=== PATIENT | female | born 1990 | race Caucasian/White ===

== ENCOUNTER 2017-09-01 16:28 | Inpatient (IN) | payer OTHER ==
[2017-09-01] VITALS (11 sets, daily range): BP systolic 85–127; BP diastolic 48–67; PULSE 110–135; RESP 26–34; TEMP 97.7–99; O2SAT 95–100
[~2017-09-01] VITALS: Ht 157.5 cm; Wt 70.4 kg
[2017-09-01] MEDS ORDERED: SODIUM CHLOR 0.9% 1000 ML INJ 1,000 ML IV SCH ×2 (16:42)
[2017-09-01] MEDS ORDERED: PIPERACIL-TAZO 3.375 GM PREMIX 50 ML IV ONE (16:45)
[2017-09-01] MEDS ORDERED: KETOROLAC TROMETHAMINE 30 MG/ML (IVP) VIAL IV PUSH ONE (16:45)
[2017-09-01] MEDS ORDERED: VANCOMYCIN INJ 1,000 MG in SODIUM CHLOR 0.9% 250 ML INJ 250 ML IV ONE (16:45)
--- NOTE | 2017-09-01 16:56 | PD ---
HPI Chief Complaint: Pain: Acute or Chronic Time Seen by Provider: 16:40 Travel History International Travel<30 days: No Contact w/Intl Traveler<30days: No Traveled to known affect area: No History of Present Illness HPI This is a 27-year-old female history of IV drug abuse, last use Dilaudid 5 days ago, here from [place], presents for evaluation. For the past 3 days she's been having myalgias and substernal sharp chest pain which has been constant. She reports fevers as high as 104-105 at home checked orally. She reports today she has also developed generalized abdominal pain, muscle spasms, hemoptysis. She reports a history of asthma with no other significant past medical history. History is somewhat limited by current patient condition. PFSH Past Medical History ?: Not LMP: 08/17/17 Social History Alcohol Use: Yes Tobacco Use: Yes Allergies-Medications (Allergen,Severity, Reaction): Coded Allergies: neomycin (Verified Allergy, Severe, 09/01/17) Reported Meds & Prescriptions Reported Meds & Active Scripts Active No Active Prescriptions or Reported Medications Review of Systems Except as stated in HPI: all other systems reviewed are Neg Physical Exam Narrative GENERAL: This is a frail appearing 27-year-old female who appears uncomfortable , she is tachycardic, tachypneic on initial examination. SKIN: Warm and dry. On the breasts and arms. HEAD: Atraumatic. Normocephalic. EYES: Pupils equal and round. No scleral icterus. No injection or drainage. ENT: No nasal bleeding or discharge. Mucous membranes pink and moist. NECK: Trachea midline. No JVD. CARDIOVASCULAR: Regular rate and rhythm. No murmur appreciated. RESPIRATORY: No accessory muscle use. Clear to auscultation. Breath sounds equal bilaterally. No crackles no wheezing or rhonchi GASTROINTESTINAL: Abdomen soft, generalized tenderness without guarding. MUSCULOSKELETAL: No obvious deformities. No edema. NEUROLOGICAL: Awake and alert. No obvious cranial nerve deficits. Motor grossly within normal limits. Normal speech. PSYCHIATRIC: Appropriate mood and affect; insight and judgment normal. Data Data Last Documented VS Vital Signs Date Time Temp Pulse Resp B/P (MAP) Pulse Ox O2 Delivery O2 Flow Rate FiO2 09/01/17 18:38 95 Venturi Mask 3.00 09/01/17 18:38 32 09/01/17 18:33 125 108/59 (75) 31 09/01/17 16:41 98.8 Orders Orders Electrocardiogram (09/01/17 16:42) Complete Blood Count With Diff (09/01/17 16:42) Comprehensive Metabolic Panel (09/01/17 16:42) Prothrombin Time / Inr (Pt) (09/01/17 16:42) Act Partial Throm Time (Ptt) (09/01/17 16:42) Lactic Acid Sepsis Protocol (09/01/17 16:42) Lipase (09/01/17 16:42) Ckmb (Isoenzyme) Profile (09/01/17 16:42) Troponin I (09/01/17 16:42) Urinalysis - C+S If Indicated (09/01/17 16:42) Influenzae A/B Antigen (09/01/17 16:42) Blood Culture (09/01/17 16:42) Chest, Single Ap (09/01/17 16:42) Blood Glucose (09/01/17 16:42) Ecg Monitoring (09/01/17 16:42) Iv Access Insert/Monitor (09/01/17 16:42) Oximetry (09/01/17 16:42) Oxygen Administration (09/01/17 16:42) Sodium Chlor 0.9% 1000 Ml Inj (Ns 1000 M (09/01/17 16:42) Ed Urine Pregnancytest Poc (09/01/17 16:42) Sodium Chlor 0.9% 1000 Ml Inj (Ns 1000 M (09/01/17 16:42) Vancomycin Inj (Vancomycin Inj) (09/01/17 16:45) Piperacil-Tazo 3.375 Gm Premix (Zosyn 3. (09/01/17 16:45) Ketorolac Inj (Toradol Inj) (09/01/17 16:45) Vascular Access Team Consult/P PRN (09/01/17 16:46) Vascular Poc Ultrasound (09/01/17 ) CKMB (09/01/17 17:05) CKMB% (09/01/17 17:05) Ct Abd/Pel W/O Iv Contrast (09/01/17 18:15) Morphine Inj (Morphine Inj) (09/01/17 18:30) Admit Order (Ed Use Only) (09/01/17 19:14) Labs Laboratory Tests Test 09/01/17 17:05 White Blood Count 15.7 TH/MM3 Red Blood Count 4.19 MIL/MM3 Hemoglobin 12.3 GM/DL Hematocrit 35.3 % Mean Corpuscular Volume 84.4 FL Mean Corpuscular Hemoglobin 29.4 PG Mean Corpuscular Hemoglobin Concent 34.9 % Red Cell Distribution Width 14.5 % Platelet Count 61 TH/MM3 Mean Platelet Volume 9.8 FL Neutrophils (%) (Auto) 83.5 % Lymphocytes (%) (Auto) 6.2 % Monocytes (%) (Auto) 5.2 % Eosinophils (%) (Auto) 4.7 % Basophils (%) (Auto) 0.4 % Neutrophils # (Auto) 13.1 TH/MM3 Lymphocytes # (Auto) 1.0 TH/MM3 Monocytes # (Auto) 0.8 TH/MM3 Eosinophils # (Auto) 0.7 TH/MM3 Basophils # (Auto) 0.1 TH/MM3 CBC Comment AUTO DIFF Differential Total Cells Counted 100 Neutrophils % (Manual) 70 % Band Neutrophils % 13 % Lymphocytes % 8 % Monocytes % 5 % Neutrophils # (Manual) 13.7 TH/MM3 Metamyelocytes 4 % Differential Comment FINAL DIFF MANUAL Atypical Lymphocytes % Toxic Granulation 2+ Toxic Vacuolation PRESENT Platelet Estimate LOW Platelet Morphology Comment GIANT Red Cell Morphology Comment NORMAL Prothrombin Time 10.8 SEC Prothromb Time International Ratio 1.0 RATIO Activated Partial Thromboplast Time 32.0 SEC Blood Urea Nitrogen 67 MG/DL Creatinine 2.68 MG/DL Random Glucose 109 MG/DL Total Protein 7.7 GM/DL Albumin 2.5 GM/DL Calcium Level 8.6 MG/DL Alkaline Phosphatase 97 U/L Aspartate Amino Transf (AST/SGOT) 96 U/L Alanine Aminotransferase (ALT/SGPT) 42 U/L Total Bilirubin 0.6 MG/DL Sodium Level 126 MEQ/L Potassium Level 3.5 MEQ/L Chloride Level 89 MEQ/L Carbon Dioxide Level 24.3 MEQ/L Anion Gap 13 MEQ/L Estimat Glomerular Filtration Rate 21 ML/MIN Lactic Acid Level 2.6 mmol/L Total Creatine Kinase 156 U/L Creatine Kinase MB 3.3 NG/ML Troponin I LESS THAN 0.02 NG/ML Lipase 139 U/L MDM Medical Decision Making Medical Screen Exam Complete: Yes Emergency Medical Condition: Yes Medical Record Reviewed: Yes Differential Diagnosis Endocarditis, pneumonia, septic emboli, tuberculosis, rhabdomyolysis, bacteremia , cholecystitis, urinary tract infection Narrative Course Patient will be placed on ECG monitoring pulse oximetry. A 12-lead EKG was obtained. The patient was given broad-spectrum antibiotics, 2 L of IV fluids. Plan is for basic lab work, CT pulmonary angiogram, CT abdomen and pelvis. Blood cultures were sent. Chest x-ray is concerning for septic emboli. The CBC count is 15.7, platelet count 61, BUN 67 and creatinine 2.6. GFR 21, no baseline renal function on file as she has never been here before. Lactic acid is 2.6, sodium 126, chloride 89. CT pulmonary injury was canceled as the septic emboli would explain the chest pain and hemoptysis. CT abdomen and pelvis was changed to noncontrast. The patient was admitted to the critical care physician. Sepsis Criteria SIRS Criteria (2 or more): Heart rate over 90, WBC > 50269, < 4000 or > 10% bands Sepsis Criteria (SIRS+source): Infect source susp/known Severe Sepsis (+one): Lactate >2 Diagnosis Primary Impression: Severe sepsis Additional Impressions: Septic embolism IV drug abuse Acute kidney injury Admitting Information Admitting Physician Requests: Admit Scripts No Active Prescriptions or Reported Meds Juwan Lawrence Sep 01, 2017 16:56
--- NOTE | 2017-09-01 17:14 | PD ---
Physical Exam Narrative I, Dr. Cabrera, have reviewed the advance practice practitioner's documentation and am in agreement, met with the patient face to face, made the diagnosis, and the medical decision making was done by me. *My assessment and Findings: Endocarditis vs. septic emboli vs. sepsis secondary to pneumonia vs. colitis 27yo F with IVDA here with generalized pain, sob, chest pain, and muscle cramps. Last IV dilaudid was about 5 days ago. Pt is tachycardic in the 130s and tachypneic. No murmur appreciated. Abdomen is tender diffusely. Blood pressure improved on repeat in the room. Pt seen at end of my shift with MARICHUY Echeverria and will be sign out to next team to follow up work up and admit. Will give IVF NS and empirically cover with vancomycin and zosyn. Data Data Last Documented VS Vital Signs Date Time Temp Pulse Resp B/P (MAP) Pulse Ox O2 Delivery O2 Flow Rate FiO2 09/01/17 18:38 95 Venturi Mask 3.00 09/01/17 18:38 32 09/01/17 18:33 125 108/59 (75) 31 09/01/17 16:41 98.8 Orders Orders Electrocardiogram (09/01/17 16:42) Complete Blood Count With Diff (09/01/17 16:42) Comprehensive Metabolic Panel (09/01/17 16:42) Prothrombin Time / Inr (Pt) (09/01/17 16:42) Act Partial Throm Time (Ptt) (09/01/17 16:42) Lactic Acid Sepsis Protocol (09/01/17 16:42) Lipase (09/01/17 16:42) Ckmb (Isoenzyme) Profile (09/01/17 16:42) Troponin I (09/01/17 16:42) Urinalysis - C+S If Indicated (09/01/17 16:42) Influenzae A/B Antigen (09/01/17 16:42) Blood Culture (09/01/17 16:42) Chest, Single Ap (09/01/17 16:42) Blood Glucose (09/01/17 16:42) Ecg Monitoring (09/01/17 16:42) Iv Access Insert/Monitor (09/01/17 16:42) Oximetry (09/01/17 16:42) Oxygen Administration (09/01/17 16:42) Sodium Chlor 0.9% 1000 Ml Inj (Ns 1000 M (09/01/17 16:42) Ed Urine Pregnancytest Poc (09/01/17 16:42) Sodium Chlor 0.9% 1000 Ml Inj (Ns 1000 M (09/01/17 16:42) Vancomycin Inj (Vancomycin Inj) (09/01/17 16:45) Piperacil-Tazo 3.375 Gm Premix (Zosyn 3. (09/01/17 16:45) Ketorolac Inj (Toradol Inj) (09/01/17 16:45) Vascular Access Team Consult/P PRN (09/01/17 16:46) Vascular Poc Ultrasound (09/01/17 ) CKMB (09/01/17 17:05) CKMB% (09/01/17 17:05) Ct Abd/Pel W/O Iv Contrast (09/01/17 18:15) Morphine Inj (Morphine Inj) (09/01/17 18:30) Admit Order (Ed Use Only) (09/01/17 19:14) Labs Laboratory Tests Test 09/01/17 17:05 White Blood Count 15.7 TH/MM3 Red Blood Count 4.19 MIL/MM3 Hemoglobin 12.3 GM/DL Hematocrit 35.3 % Mean Corpuscular Volume 84.4 FL Mean Corpuscular Hemoglobin 29.4 PG Mean Corpuscular Hemoglobin Concent 34.9 % Red Cell Distribution Width 14.5 % Platelet Count 61 TH/MM3 Mean Platelet Volume 9.8 FL Neutrophils (%) (Auto) 83.5 % Lymphocytes (%) (Auto) 6.2 % Monocytes (%) (Auto) 5.2 % Eosinophils (%) (Auto) 4.7 % Basophils (%) (Auto) 0.4 % Neutrophils # (Auto) 13.1 TH/MM3 Lymphocytes # (Auto) 1.0 TH/MM3 Monocytes # (Auto) 0.8 TH/MM3 Eosinophils # (Auto) 0.7 TH/MM3 Basophils # (Auto) 0.1 TH/MM3 CBC Comment AUTO DIFF Differential Total Cells Counted 100 Neutrophils % (Manual) 70 % Band Neutrophils % 13 % Lymphocytes % 8 % Monocytes % 5 % Neutrophils # (Manual) 13.7 TH/MM3 Metamyelocytes 4 % Differential Comment FINAL DIFF MANUAL Atypical Lymphocytes % Toxic Granulation 2+ Toxic Vacuolation PRESENT Platelet Estimate LOW Platelet Morphology Comment GIANT Red Cell Morphology Comment NORMAL Prothrombin Time 10.8 SEC Prothromb Time International Ratio 1.0 RATIO Activated Partial Thromboplast Time 32.0 SEC Blood Urea Nitrogen 67 MG/DL Creatinine 2.68 MG/DL Random Glucose 109 MG/DL Total Protein 7.7 GM/DL Albumin 2.5 GM/DL Calcium Level 8.6 MG/DL Alkaline Phosphatase 97 U/L Aspartate Amino Transf (AST/SGOT) 96 U/L Alanine Aminotransferase (ALT/SGPT) 42 U/L Total Bilirubin 0.6 MG/DL Sodium Level 126 MEQ/L Potassium Level 3.5 MEQ/L Chloride Level 89 MEQ/L Carbon Dioxide Level 24.3 MEQ/L Anion Gap 13 MEQ/L Estimat Glomerular Filtration Rate 21 ML/MIN Lactic Acid Level 2.6 mmol/L Total Creatine Kinase 156 U/L Creatine Kinase MB 3.3 NG/ML Troponin I LESS THAN 0.02 NG/ML Lipase 139 U/L MDM Supervised Visit with SHEREE: Yes Interpretation(s) EKG: Sinus tachycardia at 132bpm. Normal axis. Diagnosis Primary Impression: Severe sepsis Admitting Information Admitting Physician Requests: Admit Scripts No Active Prescriptions or Reported Meds Naomi Cabrera DO Sep 01, 2017 17:14
[2017-09-01 17:31] LABS: AUTOMATED NEUTROPHIL # 13.1 TH/MM3 (1.8-7.7); BASOPHIL # 0.1 TH/MM3 (0-0.2); BASOPHIL % 0.4 % (0.0-2.0); EOSINOPHIL # 0.7 TH/MM3 (0-0.4); EOSINOPHIL % 4.7 % (0.0-4.0); HEMATOCRIT 35.3 % (35.0-46.0); LYMPH % 6.2 % (9.0-44.0); MEAN CELL VOLUME 84.4 FL (80.0-100.0); MEAN CORPUSCULAR HEMOGLOBIN 29.4 PG (27.0-34.0); MEAN CORPUSCULAR HGB CONC 34.9 % (32.0-36.0); MONO % 5.2 % (0.0-8.0); NEUT % 83.5 % (16.0-70.0); PLATELET COUNT 61 TH/MM3 (150-450); RED BLOOD COUNT 4.19 MIL/MM3 (4.00-5.30); RED CELL DISTRIBUTION WIDTH 14.5 % (11.6-17.2); WHITE BLOOD COUNT 15.7 TH/MM3 (4.0-11.0)
[2017-09-01 17:53] LABS: ANION GAP 13 MEQ/L (5-15); AST (GOT) 96 U/L (15-37); BICARBONATE 24.3 MEQ/L (21.0-32.0); BLOOD UREA NITROGEN 67 MG/DL (7-18); CHLORIDE 89 MEQ/L (98-107); GLOMERULAR FILTRATION RATE 21 ML/MIN (>89); POTASSIUM 3.5 MEQ/L (3.5-5.1); SODIUM (NA) 126 MEQ/L (136-145)
[2017-09-01 17:55] LABS: HEMO FLAGS AUTO DIFF
[2017-09-01 17:57] LABS: ALKALINE PHOSPHATASE 97 U/L (45-117); ALT (GPT) 42 U/L (10-53); CREATINE KINASE 156 U/L (26-192); TOTAL BILIRUBIN ADULT 0.6 MG/DL (0.2-1.0)
--- NOTE | 2017-09-01 18:02 | RADRPT ---
EXAM DATE/TIME: 09/01/2017 17:20 [facility] COMPARISON: No previous studies available for comparison. INDICATIONS : Chest pain. MEDICAL HISTORY : None. SURGICAL HISTORY : None. ENCOUNTER: Initial ACUITY: 1 day PAIN SCORE: 0/10 LOCATION: Bilateral chest FINDINGS: Abnormal examination. There are multiple bilateral lung masses. These appear more confluent in the le ft lung base. Cardiomediastinal contours are within normal limits. Osseous structures are intact. CONCLUSION: 1. Abnormal examination demonstrating multiple bilateral apparent lung masses. Findings are concernin g for septic emboli in this young patient although differential considerations include metastatic dis ease. There is a CT examination of the chest pending. Bereket Pozo MD on September 01, 2017 at 17:59 Board Certified Radiologist. This report was verified electronically.
[2017-09-01 18:10] LABS: CKMB 3.3 NG/ML (0.5-3.6)
[2017-09-01 18:14] LABS: PROTHROMBIN TIME - PATIENT 10.8 SEC (9.8-11.6)
[2017-09-01] MEDS ORDERED: MORPHINE SULFATE 4 MG/ML INJ IV PUSH ONE (18:30)
[2017-09-01 18:37] LABS: BANDS 13 % (0-6); METAMYELOCYTES 4 % (0-1); NEUTROPHIL # MANUAL DIFF 13.7 TH/MM3 (1.8-7.7); POLYS (SEG NEUTROPHILS) 70 % (16-70); WBC DIFF SAMPLE 100
[2017-09-01 18:38] LABS: PLATELET ESTIMATE SMEAR LOW (NORMAL); PLATELET MORPHOLOGY GIANT (NORMAL); SCAN/DIFF FINAL DIFF MANUAL; TOXIC GRANULATION 2+ (NORMAL); TOXIC VACUOLATION PRESENT (NONE SEEN)
[2017-09-01 19:22] LABS: LACTIC ACID GHOST NOT REPORTABLE
[2017-09-01] MEDS ORDERED: SODIUM CHLORIDE 0.9% FLUSH 10 ML FLUSH IV FLUSH PRN (19:30)
[2017-09-01] MEDS ORDERED: SENNOSIDES 8.6 MG TAB PO PRN (19:30)
[2017-09-01] MEDS ORDERED: ZOLPIDEM TARTRATE 5 MG TAB PO PRN (19:30)
[2017-09-01] MEDS ORDERED: ONDANSETRON HCL 4 MG/2 ML VIAL IV PUSH PRN (19:30)
[2017-09-01] MEDS ORDERED: ACETAMINOPHEN 325 MG TAB PO PRN (19:30)
[2017-09-01] MEDS ORDERED: MISCELLANEOUS NURSING INFORMATION XX SCH (19:30)
[2017-09-01] MEDS ORDERED: CHLORHEXIDINE GLUCONATE 2 % 1 PACK (2 CLOTHS) TOP PRN (19:30)
[2017-09-01] MEDS ORDERED: MAGNESIUM HYDROXIDE SUSP 30 ML CUP PO PRN (19:30)
[2017-09-01] MEDS ORDERED: ACETAMINOPHEN/HYDROcodone 325 MG/5 MG TAB PO PRN (19:30)
[2017-09-01] MEDS ORDERED: LACTULOSE SYRUP 20 GM/30 ML CUP PO PRN (19:30)
[2017-09-01] MEDS ORDERED: BISACODYL 10 MG SUPP RECTAL PRN (19:30)
[2017-09-01] MEDS ORDERED: Vancomycin Consult Pharmacy 1 EA OTHER SCH (19:45)
[2017-09-01] MEDS ORDERED: PIPERACIL-TAZO 4.5 GM PREMIX 100 ML IV SCH (19:45)
[2017-09-01] MEDS ORDERED: VANCOMYCIN INJ 1,000 MG in SODIUM CHLOR 0.9% 250 ML INJ 250 ML IV SCH (19:45)
--- NOTE | 2017-09-01 20:07 | RADRPT ---
EXAM DATE/TIME: 09/01/2017 19:37 [facility] COMPARISON: CHEST SINGLE AP, September 01, 2017, 17:20. INDICATIONS : General weakness, fever, coughing up blood past few days. ORAL CONTRAST: No oral contrast ingested. RADIATION DOSE: 5.34 CTDIvol (mGy) MEDICAL HISTORY : None SURGICAL HISTORY : None. ENCOUNTER: Initial ACUITY: 3 days PAIN SCALE: 10/10 LOCATION: Bilateral abdomen TECHNIQUE: Volumetric scanning of the abdomen and pelvis was performed. Using automated exposure control and ad justment of the mA and/or kV according to patient size, radiation dose was kept as low as reasonably achievable to obtain optimal diagnostic quality images. DICOM format image data is available electro nically for review and comparison. FINDINGS: There are multiple patchy areas of prominent consolidation seen in the lower lungs bilaterally. Some of these have a rounded appearance. There is a minimal left pleural effusion. The liver appears normal for noncontrast CT examination. The spleen appears somewhat prominent m easuring 12.7 cm in length. A focal splenic lesion is not seen on this noncontrast CT examination. Th e pancreas and adrenal glands appear normal. There is mild to moderate dilatation of the collecting s ystems bilaterally the kidneys. Renal stones are not seen. The bowel is unremarkable for a noncontra st CT examination. There is metallic density seen adjacent to the cecum on prior appendectomy. There is a 5.9 cm cyst seen at the posterior right adnexa region likely related to a right ovari an cyst. The pelvic structures are otherwise unremarkable. CONCLUSION: 1. Multiple prominent areas of consolidation at the lung bases. Several of these have a rounded confi guration raising possibility of septic emboli. Diffuse infection could have a similar appearance. 2. Mild proximal spleen. 3. 5.9 center cystic area in the right adnexa likely related to right ovarian cyst. 4. Mild to moderate dilatation of the collecting systems bilaterally. The ureters do not appear diste nded. Lorenzo Perez MD on September 01, 2017 at 19:58 Board Certified Radiologist. This report was verified electronically.
[2017-09-01] MEDS: SODIUM CHLORIDE 0.9% FLUSH 10 ML FLUSH IV FLUSH SCH (20:16)
[2017-09-01] MEDS: SODIUM CHLOR 0.9% 1000 ML INJ 1,000 ML IV SCH (20:16)
[2017-09-01] MEDS: FAMOTIDINE 20 MG/2 ML VIAL IV PUSH SCH (20:17)
[2017-09-01 20:48] LABS: BACTERIA, URINE OCC /hpf; BLOOD, URINE LARGE (NEG); GLUCOSE,URINE NEG (NEG); KETONE, URINE NEG (NEG); NITRITE,URINE NEG (NEG); PH, URINE 5.5 (5.0-8.5); SQUAMOUS EPITHELIAL CELL URINE 1 /hpf (0-5); URINE COLOR YELLOW (YELLW/STRAW)
[2017-09-01 20:49] LABS: COMMENT (UR) CATH-CULTURE IND; CULTURE IF INDICATED CATH CULTURE IND
[2017-09-01] MEDS: DOCUSATE SODIUM 50 MG/SENNA 8.6 MG TAB PO SCH (21:00)
[2017-09-01] MEDS: RESP: ALBUTEROL 2.5 MG/IPRATROPIUM 0.5 MG NEB (SCH) INH (21:14)
[2017-09-01] MEDS: MORPHINE SULFATE 4 MG/ML INJ IV PUSH PRN ×2 (21:45→23:51)
--- NOTE | 2017-09-01 22:58 | HHI.HP ---
HPI Service Critical Care Medicine Primary Care Physician No Primary Care Physician Admission Diagnosis septic emboli, severe sepsis, IVDU Diagnosis: Travel History International Travel<30 Days: No Contact w/Intl Traveler <30 Da: No Traveled to Known Affected Are: No History of Present Illness 27-year-old very pleasant female with history of IV drug abuse, last use Dilaudid 5 days ago, visiting here from [place], presents for evaluation of having myalgias and substernal sharp chest pain which has been constant. She reports fevers as high as 104-105 at home checked orally. She reports today she has also developed generalized abdominal pain, muscle spasms, hemoptysis. She reports a history of asthma with no other significant past medical history. Review of Systems Constitutional: COMPLAINS OF: Diaphoretic episodes, Fatigue, Fever, Chills, Dizziness, Change in appetite, Night Sweats, DENIES: Weight gain, Weight loss Endocrine: DENIES: Abnorml menstrual pattern, Heat/cold intolerance, Polydipsia , Polyuria, Polyphagia Eyes: DENIES: Blurred vision, Diplopia, Eye inflammation, Eye pain, Vision loss , Photosensitivity, Double Vision Ears, nose, mouth, throat: DENIES: Tinnitus, Hearing loss, Vertigo, Nasal discharge, Oral lesions, Throat pain, Hoarseness, Ear Pain, Running Nose, Epistaxis, Sinus Pain, Toothache, Odynophagia Respiratory: COMPLAINS OF: Cough, Hemoptysis, Sputum production, Shortness of breath, DENIES: Apneas, Snoring, Wheezing Cardiovascular: COMPLAINS OF: Chest pain, DENIES: Palpitations, Syncope, Dyspnea on Exertion, PND, Lower Extremity Edema, Orthopnea, Claudication Gastrointestinal: COMPLAINS OF: Abdominal pain, DENIES: Black stools, Bloody stools, Constipation, Diarrhea, Nausea, Vomiting, Difficulty Swallowing, Anorexia Genitourinary: DENIES: Abnormal vaginal bleeding, Dysmenorrhea, Dyspareunia, Sexual dysfunction, Urinary frequency, Urinary incontinence, Urgency, Hematuria , Dysuria, Nocturia, Vaginal discharge Musculoskeletal: COMPLAINS OF: Joint pain, Muscle aches, DENIES: Stiffness, Joint Swelling, Back pain, Neck pain Integumentary: DENIES: Abnormal pigmentation, Pruritus, Rash, Nail changes, Breast masses, Breast skin changes, Nipple discharge Hematologic/lymphatic: DENIES: Bruising, Lymphadenopathy Immunologic/allergic: DENIES: Eczema, Urticaria Neurologic: DENIES: Abnormal gait, Headache, Localized weakness, Paresthesias, Seizures, Speech Problems, Tremor, Poor Balance Psychiatric: DENIES: Anxiety, Confusion, Mood changes, Depression, Hallucinations, Agitation, Suicidal Ideation, Homicidal Ideation, Delusions Past Family Social History Allergies: Coded Allergies: neomycin (Verified Allergy, Severe, 09/01/17) Past Medical History Asthma IVDU Past Surgical History None Reported Medications Reported Meds & Active Scripts Active No Active Prescriptions or Reported Medications Active Ordered Medications Current Medications Medications (Trade) Dose Ordered Sig/Marie Route PRN Reason Start Time Stop Time Status Last Admin Dose Admin Sodium Chloride 1,000 ml @ 154 mls/hr Q6H30M IV 09/01/17 19:24 09/01/17 20:16 Sodium Chloride (NS Flush) 2 ml UNSCH PRN IV FLUSH FLUSH AFTER USING IV ACCESS 09/01/17 19:30 Sodium Chloride (NS Flush) 2 ml BID IV FLUSH 09/01/17 21:00 09/01/17 20:16 Acetaminophen (Tylenol) 650 mg Q6H PRN PO FEVER >101F 09/01/17 19:30 Acetaminophen/ Hydrocodone Bitart ([place] 5-325 Mg) 1 tab Q4H PRN PO PAIN SCALE 1 TO 5 09/01/17 19:30 Morphine Sulfate (Morphine Inj) 2 mg Q2H PRN IV PUSH PAIN SCALE 6 TO 10 09/01/17 19:30 Famotidine (Pepcid Inj) 20 mg Q12HR IV PUSH 09/01/17 21:00 09/01/17 20:17 Ondansetron HCl (Zofran Inj) 4 mg Q6H PRN IV PUSH NAUSEA OR VOMITING 09/01/17 19:30 Zolpidem Tartrate (Ambien) 5 mg HS PRN PO INSOMNIA 09/01/17 19:30 Albuterol/ Ipratropium (Duoneb Neb) 1 ampule Q6HR NEB INH 09/01/17 22:00 09/01/17 21:14 Albuterol/ Ipratropium (Duoneb Neb) 1 ampule Q2HR NEB PRN INH WHEEZING 09/01/17 19:30 Miscellaneous Information 1 Q361D XX 09/01/17 19:30 Chlorhexidine Gluconate (Chlorhexidine 2% Cloth) 3 pack Taper DAILY@04 TOP 09/02/17 04:00 08/29/18 03:59 Chlorhexidine Gluconate (Chlorhexidine 2% Cloth) 3 pack UNSCH PRN TOP HYGIENIC CARE 09/01/17 19:30 Senna/Docusate Sodium (Ann-Marie-Colace) 1 tab BID PO 09/01/17 21:00 Magnesium Hydroxide (Milk Of Magnesia Liq) 30 ml Q12H PRN PO MILD - MODERATE CONSTIPATION 09/01/17 19:30 Sennosides (Senokot) 17.2 mg Q12H PRN PO MODERATE - SEVERE CONSTIPATION 09/01/17 19:30 Bisacodyl (Dulcolax Supp) 10 mg DAILY PRN RECTAL SEVERE CONSITIPATION 09/01/17 19:30 Lactulose (Lactulose Liq) 30 ml DAILY PRN PO SEVERE CONSITIPATION 09/01/17 19:30 Pharmacy Profile Note 0 ml @ 0 mls/hr UNSCH OTHER 09/01/17 19:45 Piperacillin Sod/ Tazobactam Sod 50 ml @ 100 mls/hr Q6H IV 09/02/17 00:00 Vancomycin HCl 750 mg/Sodium Chloride 257.5 ml @ 250 mls/hr Q36H IV 09/03/17 06:00 Family History No family history significant for coronary artery disease Social History Positive for tobacco and IVDU, alcohol socially Physical Exam Vital Signs Vital Signs Date Time Temp Pulse Resp B/P (MAP) Pulse Ox O2 Delivery O2 Flow Rate FiO2 09/01/17 21:15 09/01/17 21:07 95 09/01/17 20:05 111 32 85/48 (60) 100 Venturi Mask 3.00 09/01/17 19:57 97.7 112 30 91/54 (66) Venturi Mask 3.00 09/01/17 18:38 95 Venturi Mask 3.00 09/01/17 18:38 32 09/01/17 18:33 125 28 108/59 (75) 96 Venturi Mask 3.00 31 09/01/17 18:32 Venturi Mask 6.00 50 09/01/17 18:00 114 34 108/58 (75) 96 Nasal Cannula 2.00 09/01/17 17:37 122 32 100/64 (76) 100 Nasal Cannula 2.00 09/01/17 17:05 Nasal Cannula 2.00 09/01/17 17:05 99 Room Air 09/01/17 16:41 98.8 133 28 127/67 (87) 96 09/01/17 16:30 99.0 135 26 89/58 (68) 95 Room Air Physical Exam GENERAL: Well-nourished, well-developed patient young female on facemask nonrebreather. SKIN: Warm and dry. HEAD: Normocephalic. EYES: No scleral icterus. No injection or drainage. NECK: Supple, trachea midline. No JVD or lymphadenopathy. CARDIOVASCULAR: Regular rate and rhythm without murmurs, gallops, or rubs. RESPIRATORY: Breath sounds equal bilaterally. No accessory muscle use. GASTROINTESTINAL: Abdomen soft, non-tender, nondistended. MUSCULOSKELETAL: No cyanosis, or edema. BACK: Nontender without obvious deformity. NEURO EXAM: GCS: M 6 V 5 E 4 Mental Status: The patient is alert and oriented to person, place, and time with normal speech. Cranial Nerves: Visual mishra normal in all quadrants. Pupils are round, reactive to light. Extraocular movements are intact without ptosis. Hearing is normal bilaterally. Voice is normal. Tongue protrudes midline and moves symmetrically. Reflexes: Biceps, patellar, and Achilles are 2/4 bilaterally. No clonus. Laboratory Laboratory Tests Test 09/01/17 17:05 09/01/17 20:00 09/01/17 20:30 White Blood Count 15.7 Red Blood Count 4.19 Hemoglobin 12.3 Hematocrit 35.3 Mean Corpuscular Volume 84.4 Mean Corpuscular Hemoglobin 29.4 Mean Corpuscular Hemoglobin Concent 34.9 Red Cell Distribution Width 14.5 Platelet Count 61 Mean Platelet Volume 9.8 Neutrophils (%) (Auto) 83.5 Lymphocytes (%) (Auto) 6.2 Monocytes (%) (Auto) 5.2 Eosinophils (%) (Auto) 4.7 Basophils (%) (Auto) 0.4 Neutrophils # (Auto) 13.1 Lymphocytes # (Auto) 1.0 Monocytes # (Auto) 0.8 Eosinophils # (Auto) 0.7 Basophils # (Auto) 0.1 CBC Comment AUTO DIFF Differential Total Cells Counted 100 Neutrophils % (Manual) 70 Band Neutrophils % 13 Lymphocytes % 8 Monocytes % 5 Neutrophils # (Manual) 13.7 Metamyelocytes 4 Differential Comment FINAL DIFF MANUAL Atypical Lymphocytes Toxic Granulation 2+ Toxic Vacuolation PRESENT Platelet Estimate LOW Platelet Morphology Comment GIANT Red Cell Morphology Comment NORMAL Prothrombin Time 10.8 Prothromb Time International Ratio 1.0 Activated Partial Thromboplast Time 32.0 Blood Urea Nitrogen 67 Creatinine 2.68 Random Glucose 109 Total Protein 7.7 Albumin 2.5 Calcium Level 8.6 Alkaline Phosphatase 97 Aspartate Amino Transf (AST/SGOT) 96 Alanine Aminotransferase (ALT/SGPT) 42 Total Bilirubin 0.6 Sodium Level 126 Potassium Level 3.5 Chloride Level 89 Carbon Dioxide Level 24.3 Anion Gap 13 Estimat Glomerular Filtration Rate 21 Lactic Acid Level 2.6 1.4 Total Creatine Kinase 156 Creatine Kinase MB 3.3 Troponin I LESS THAN 0.02 Lipase 139 Urine Color YELLOW Urine Turbidity HAZY Urine pH 5.5 Urine Specific [place] 1.011 Urine Protein 30 Urine Glucose (UA) NEG Urine Ketones NEG Urine Occult Blood LARGE Urine Nitrite NEG Urine Bilirubin NEG Urine Urobilinogen LESS THAN 2.0 Urine Leukocyte Esterase NEG Urine RBC 2 Urine WBC 7 Urine Squamous Epithelial Cells 1 Urine Amorphous Sediment OCC Urine Bacteria OCC Microscopic Urinalysis Comment CATH-CULTURE IND Date/Time Source Procedure Growth Status 09/01/17 17:10 Blood Peripheral Aerobic Blood Culture Pending Received 09/01/17 17:10 Blood Peripheral Anaerobic Blood Culture Pending Received 09/01/17 17:50 Nasal Aspirate Influenza Types A,B Antigen (TOM) - Final NEGATIVE FOR FLU A AND B ANTIGEN.... Complete 09/01/17 20:30 Urine Catheterized Urine Urine Culture Pending Received Result Diagram: 09/01/17 1705 09/01/171704 Caprini VTE Risk Assessment Caprini VTE Risk Assessment: No/Low Risk (score <= 1) Caprini Risk Assessment Model Point Value = 1 Point Value = 2 Point Value = 3 Point Value = 5 Age 41-60 Minor surgery BMI > 25 kg/m2 Swollen legs Varicose veins or History of unexplained or recurrent spontaneous Oral contraceptives or hormone replacement Sepsis (< 1 month) Serious lung disease, including pneumonia (< 1 month) Abnormal pulmonary function Acute myocardial infarction Congestive heart failure (< 1 month) History of inflammatory bowel disease Medical patient at bed rest Age 61-74 Arthroscopic surgery Major open surgery (> 45 min) Laparoscopic surgery (> 45 min) Malignancy Confined to bed (> 72 hours) Immobilizing plaster cast Central venous access Age >= 75 History of VTE Family history of VTE Factor V Leiden Prothrombin [id number] Lupus anticoagulant Anticardiolipin antibodies Elevated serum homocysteine Heparin-induced thrombocytopenia Other congenital or acquired thrombophilia Stroke (< 1 month) Elective arthroplasty Hip, pelvis, or leg fracture Acute spinal cord injury (< 1 month) Prophylaxis Regimen Total Risk Factor Score Risk Level Prophylaxis Regimen 0-1 Low Early ambulation 2 Moderate Order ONE of the following: *Sequential Compression Device (SCD) *Heparin 5000 units SQ BID 3-4 Higher Order ONE of the following medications: *Heparin 5000 units SQ TID *Enoxaparin/Lovenox 40 mg SQ daily (WT < 150 kg, CrCl > 30 mL/min) *Enoxaparin/Lovenox 30 mg SQ daily (WT < 150 kg, CrCl > 10-29 mL/min) *Enoxaparin/Lovenox 30 mg SQ BID (WT < 150 kg, CrCl > 30 mL/min) AND/OR *Sequential Compression Device (SCD) 5 or more Highest Order ONE of the following medications: *Heparin 5000 units SQ TID (Preferred with Epidurals) *Enoxaparin/Lovenox 40 mg SQ daily (WT < 150 kg, CrCl > 30 mL/min) *Enoxaparin/Lovenox 30 mg SQ daily (WT < 150 kg, CrCl > 10-29 mL/min) *Enoxaparin/Lovenox 30 mg SQ BID (WT < 150 kg, CrCl > 30 mL/min) AND *Sequential Compression Device (SCD) Assessment and Plan Assessment and Plan Hemoptysis - Pulmonary septic emboli - Blood cultures - Broad-spectrum antibiotics - Infectious disease consult - De-escalate per sensitivity Myalgias and fevers - Broad-spectrum antibiotics - 2-D echo to rule out endocarditis at the patient with a history of IVDU - Tylenol when necessary for fevers Acute kidney injury - Dehydration - IV fluid resuscitation - Strict I's and O's - Monitor creatinine and electrolytes IVDU - Monitor for withdrawal - Morphine [place] and Ativan when necessary DVT GI prophylaxis - Teds SCDs - Hold pharmacological DVT prophylaxis due to hemoptysis - Pepcid Critical Care: The total critical care time was 35 minutes. Time to perform other separately billable procedures was not included in the critical care time. Dominic Anna MD Sep 01, 2017 22:58
[2017-09-01] MEDS: PIPERACIL-TAZO 3.375 GM PREMIX 50 ML IV SCH (23:51)
[2017-09-02] VITALS (20 sets, daily range): BP systolic 84–120; BP diastolic 48–70; PULSE 79–133; RESP 24–42; TEMP 96–99; O2SAT 92–100
[2017-09-02] MEDS ORDERED: PIPERACIL-TAZO 2.25 GM PREMIX 50 ML IV SCH
[2017-09-02] MEDS: LORazepam 2 MG/ML VIAL IV PUSH PRN ×2 (00:43→06:43)
[2017-09-02] MEDS: RESP: ALBUTEROL 2.5 MG/IPRATROPIUM 0.5 MG NEB (PRN) INH (00:44)
[2017-09-02] MEDS ORDERED: HYDROmorphone HCL PF 1 MG/ML VIAL IV ONE (01:45)
[2017-09-02] MEDS ORDERED: DEXMEDETOMIDINE INJ 200 MCG in SODIUM CHLORIDE 0.9% INJ 50 ML IV PRN (01:45)
[2017-09-02] MEDS: SODIUM CHLOR 0.9% 1000 ML INJ 1,000 ML IV SCH ×5 (02:11→12:54)
[2017-09-02] MEDS: RESP: ALBUTEROL 2.5 MG/IPRATROPIUM 0.5 MG NEB (SCH) INH ×4 (03:44→20:25)
[2017-09-02] MEDS: CHLORHEXIDINE GLUCONATE 2 % 1 PACK (2 CLOTHS) TOP SCH (04:00)
[2017-09-02] MEDS ORDERED: TERBUTALINE INJ 1 MG/ML AMP SQ PRN ×2 (05:30→12:15)
[2017-09-02] MEDS: PIPERACIL-TAZO 3.375 GM PREMIX 50 ML IV SCH ×4 (05:32→22:32)
[2017-09-02] MEDS: PHENYLEPHRINE 40 MG in D5W 500 ML IV PRN ×3 (06:12→15:41)
[2017-09-02] MEDS ORDERED: fentaNYL CITRATE 250 MCG/5 ML AMP IV PUSH ONE (07:45)
[2017-09-02] MEDS ORDERED: PROPOFOL 200 MG/20 ML AMP IV ONE (07:45)
[2017-09-02] MEDS ORDERED: SUCCINYLCHOLINE CHLORIDE 100 MG/5 ML SYRINGE IV PUSH ONE (07:45)
[2017-09-02] MEDS ORDERED: ROCURONIUM INJ 50 MG/5 ML VIAL IV ONE (07:45)
[2017-09-02] MEDS ORDERED: PROPOFOL 500 MG/50 ML INJ 50 ML ONE (07:57)
[2017-09-02] MEDS: MIDAZOLAM 100 MG/100 ML INJ 100 ML IV PRN ×2 (08:29→22:33)
[2017-09-02] MEDS: fentaNYL DRIP 250 ML IV PRN (08:29)
[2017-09-02 08:30] LABS: BLOOD GAS BASE EXCESS -10.5 mmol/L (-2-2); BLOOD GAS CARBOXYHEMOGLOBIN 0.6 % (0-4); BLOOD GAS HCO3 16 mmol/L (22-26); BLOOD GAS METHEMOGLOBIN 0.5 % (0-2); BLOOD GAS O2 HGB SATURATION 98 % (90-100); BLOOD GAS OXYGEN CONTENT 13.7 Vol % (12.0-20.0); BLOOD GAS PCO2 46 mmHg (38-42); BLOOD GAS PO2 228 mmHG (61-120); BLOOD GAS TOTAL HGB 9.5 G/DL (12.0-16.0); TEMP CORR TO 98.6
[2017-09-02 08:32] LABS: CRITICAL VALUE YES; DRAW SITE ART LINE; FIO2 100 %
[2017-09-02 08:33] LABS: STAT YES
[2017-09-02] MEDS: DOCUSATE SODIUM 50 MG/SENNA 8.6 MG TAB PO SCH ×2 (08:39→21:00)
[2017-09-02] MEDS: SODIUM CHLORIDE 0.9% FLUSH 10 ML FLUSH IV FLUSH SCH ×2 (09:00→21:04)
--- NOTE | 2017-09-02 09:07 | HHI.CCPN ---
Subjective Remarks/Hospital Course 27-year-old very pleasant female with history of IV drug abuse, last use Dilaudid 5 days ago, visiting here from [place], presents for evaluation of having myalgias and substernal sharp chest pain which has been constant. She reports fevers as high as 104-105 at home checked orally. She reports today she has also developed generalized abdominal pain, muscle spasms, hemoptysis. She reports a history of asthma with no other significant past medical history. Subjective: 09/02: The patient was noted to be tachypnea , respiratory rate 40s and shallow , as well as tachycardic and hypotensive phenylephrine infusing at 50 mcgs.the patient was emergently intubated 1 attempt ABGs revealed metabolic and respiratory acidosis with a pH of 7.18 .Possible septic emboli noted on chest x -ray. Multiple bilateral lung masses. Stat CT thorax pending, no angiogram 2/ 2 elevated creatinine. Sodium bicarbonate infusion initiated. Objective Vital Signs Date Time Temp Pulse Resp B/P (MAP) Pulse Ox O2 Delivery O2 Flow Rate FiO2 09/02/17 08:12 100 100 09/02/17 06:12 129 84/42 09/02/17 04:00 98.9 38 09/01/17 20:05 Venturi Mask 3.00 Intake and Output 09/02/17 09/02/17 09/03/17 08:00 16:00 00:00 Intake Total 2953 ml Output Total 350 ml Balance 2603 ml Result Diagram: 09/01/17 1705 09/01/17 1705 Other Results Microbiology Date/Time Source Procedure Growth Status 09/01/17 17:50 Nasal Aspirate Influenza Types A,B Antigen (TOM) - Final NEGATIVE FOR FLU A AND B ANTIGEN.... Complete Laboratory Tests Test 09/02/17 08:19 Blood Gas Puncture Site ART LINE Blood Gas Patient Temperature 98.6 Blood Gas HCO3 16 mmol/L (22-26) Blood Gas Base Excess -10.5 mmol/L (-2-2) Blood Gas Oxygen Saturation 98 % (90-100) Arterial Blood pH 7.18 (7.380-7.420) Arterial Blood Partial Pressure CO2 46 mmHg (38-42) Arterial Blood Partial Pressure O2 228 mmHG (61-120) Arterial Blood Oxygen Content 13.7 Vol % (12.0-20.0) Arterial Blood Carboxyhemoglobin 0.6 % (0-4) Arterial Blood Methemoglobin 0.5 % (0-2) Blood Gas Hemoglobin 9.5 G/DL (12.0-16.0) Blood Gas Ventilator Setting Blood Gas Inspired Oxygen 100 % Imaging Last Impressions Abdomen/Pelvis CT 09/01/17 181 Signed Impressions: Service Date/Time: Friday, September 01, 2017 19:37 - CONCLUSION: 1. Multiple prominent areas of consolidation at the lung bases. Several of these have a rounded configuration raising possibility of septic emboli. Diffuse infection could have a similar appearance. 2. Mild proximal spleen. 3. 5.9 center cystic area in the right adnexa likely related to right ovarian cyst. 4. Mild to moderate dilatation of the collecting systems bilaterally. The ureters do not appear distended. Lorenzo Perez MD Chest X-Ray 09/01/17 1642 Signed Impressions: Service Date/Time: Friday, September 01, 2017 17:20 - CONCLUSION: 1. Abnormal examination demonstrating multiple bilateral apparent lung masses. Findings are concerning for septic emboli in this young patient although differential considerations include metastatic disease. There is a CT examination of the chest pending. Bereket Pozo MD Objective Remarks GENERAL: Well-nourished, well-developed patient young female on facemask in distress, tachypnea and dyspnea. Patient confused mumbling. SKIN: Warm and dry. Multiple punctate lesions from skin popping noted over trunk and extremities 4. HEAD: Normocephalic. EYES: No scleral icterus. No injection or drainage. NECK: Supple, trachea midline. No JVD or lymphadenopathy. CARDIOVASCULAR: Regular rate and rhythm without murmurs, gallops, or rubs. RESPIRATORY: Breath sounds equal bilaterally.Accessory muscle use. Tachypnea respiratory rate 48 GASTROINTESTINAL: Abdomen soft, non-tender, nondistended. Normoactive bowel sounds MUSCULOSKELETAL: No cyanosis, or edema. BACK: Nontender without obvious deformity. NEURO EXAM: GCS: M 6 V 4 E 4 Mental Status: The patient is lethargic, waxing and waning in consciousness, incomprehensible. Moving extremities 4 but not following commands. Cranial Nerves: Visual mishra normal in all quadrants. Pupils are round, reactive to light. Extraocular movements are intact without ptosis. Hearing is normal bilaterally. Voice is normal. Tongue protrudes midline and moves symmetrically. Reflexes: Biceps, patellar, and Achilles are 2/4 bilaterally. No clonus. Procedures 09/02-CT angiogram pulmonary 09/02- transthoracic echocardiogram Urinary Catheter: Yes Date of Insertion: Sep 02, 2017 Vascular Central Line Catheter: Yes Assessment to: Continue Line: Central Venous Catheter Side: Right Location: Subclavian Reason for Continuation Vasoactive medication A/P Assessment and Plan Metabolic Encephalopathy 2/2 sepsis Toxic Encephalopathy- Cocaine, Amphetamines Neuro checks per ICU Protocol F/U MRI brain 01/01 septic emboli Obtain Echo -r/o PFO, vegetations and evaluate function Hemoptysis Acute hypercapnic and hypoxemic respiratory failure - Pulmonary septic emboli - Blood cultures - Broad-spectrum antibiotics - Infectious disease consulted - De-escalate per sensitivity -09/02 intubated 7.5 at 22cm @lip -Obtain sputum culture -Obtain CT chest-unable to do angiogram secondary to elevated creatinine -Versed and fentanyl infusions for ventilator synchrony -Daily sedation vacation Myalgias and fevers Septic shock Metabolic acidosis - Broad-spectrum antibiotics -Obtain stat 2-D echo to rule out endocarditis at the patient with a history of IVDU - Tylenol when necessary for fevers -Follow-up blood , urine and sputum cultures- blood gram-positive bacteremia. Vancomycin, Zosyn initiated -Patient currently on norepinephrine, vasopressin, phenylephrine with maintenance of MAP greater than 65mmHg -Sodium bicarbonate infusion initiated 75cc/hr. PH 7.18, BE -10.5,Bicarb 16 Acute kidney injury Dehydration -Insert [place] - IV fluid resuscitation - Strict I's and O's - Monitor creatinine and electrolytes IVDU - Monitor for withdrawal - Morphine [place] and Ativan when necessary -Seizure precautions Hyperglycemia critical illness DVT GI prophylaxis - Teds SCDs - Hold pharmacological DVT prophylaxis due to hemoptysis - Pepcid Critical Care: Left subclavian line Place left radial art line placed patient emergently intubated. Will follow-up CT angiogram, pulmonary and echocardiogram. Dependent on results of echo, will consider cardiology consult Attempts currently being made to locate family. This patient remains critically ill with one or more organ systems which are or may become a threat to life. I have spent in excess of 45 minutes discontinuously in the care and management of this patient. This time is exclusive of procedures, and includes, but is not limited to, evaluation of the patient, review of the medical record, discussions with family, consultants, nursing staff, or respiratory therapy, and documentation in the medical recor Physician Noelle Knox MD Sep 02, 2017 09:07
--- NOTE | 2017-09-02 09:20 | RADRPT ---
EXAM DATE/TIME: 09/02/2017 08:22 [facility] COMPARISON: CT ABDOMEN & PELVIS W/O CONTRAST, September 01, 2017, 19:37. CHEST SINGLE AP, September 01, 2017, 17:20. INDICATIONS : Respiratory distress. MEDICAL HISTORY : None. SURGICAL HISTORY : None. ENCOUNTER: Initial ACUITY: 1 day PAIN SCORE: 0/10 LOCATION: Bilateral chest FINDINGS: ETT approximately 3 cm above the ciera. Left subclavian central line with tip in the proximal right atrium. Interval progression of diffuse masslike airspace opacities with now more confluent interveni ng airspace disease. Cardiomediastinal contours are stable. Remainder of the exam is unchanged. CONCLUSION: 1. ETT in good position. Left subclavian central line in the very proximal right atrium. 2. Redemonstration of numerous bilateral masslike airspace opacities with progressive intervening air space disease consistent with diffuse infection and developing ARDS. Bereket Pozo MD on September 02, 2017 at 9:10 Board Certified Radiologist. This report was verified electronically.
[2017-09-02] MEDS: SODIUM BICARBONATE 8.4% INJ 150 MEQ in SODIUM CHLOR 0.9% 1000 ML INJ 850 ML IV SCH ×2 (09:37→22:32)
--- NOTE | 2017-09-02 10:27 | RADRPT ---
EXAM DATE/TIME: 09/02/2017 10:00 [facility] COMPARISON: CHEST SINGLE AP, September 01, 2017, 17:20. CHEST SINGLE AP, September 02, 2017, 8:22. INDICATIONS : Possible pneumonia. RADIATION DOSE: 5.10 CTDIvol (mGy) MEDICAL HISTORY : Renal failure, chronic. SURGICAL HISTORY : Appendectomy. ENCOUNTER: Initial ACUITY: 1 day PAIN SCALE: Non-responsive LOCATION: chest TECHNIQUE: Volumetric scanning of the chest was performed. Using automated exposure control and adjustment of t he mA and/or kV according to patient size, radiation dose was kept as low as reasonably achievable to obtain optimal diagnostic quality images. DICOM format image data is available electronically for r eview and comparison. Follow-up recommendations for detected pulmonary nodules are based at a minimum on nodule size and pa tient risk factors according to Fleischner Society Guidelines. FINDINGS: LUNGS: Extensive patchy bilateral airspace infiltrates. PLEURAE: Small effusions bilaterally. MEDIASTINUM: Nasogastric tube, endotracheal tube and left subclavian central line in good position. No evidence of mediastinal mass or adenopathy. AXILLAE: Within normal limits. No lymphadenopathy. MUSCULOSKELETAL: Within normal limits for patient age. MISCELLANEOUS: The visualized upper abdominal organs demonstrate no acute abnormality. CONCLUSION: Extensive bilateral infiltrates. Small effusions. Lorenzo Junior MD on September 02, 2017 at 10:23 Board Certified Radiologist. This report was verified electronically.
--- NOTE | 2017-09-02 10:27 | EKG ---
Date Performed: 09/01/2017 Time Performed: 16:52:55 PTAGE: 27 years EKG: SINUS TACHYCARDIA INTERPRETATION BASED ON A DEFAULT AGE OF 39 YEARS NO PREVIOUS TRACING DOCTOR: Gerhard Zeng Interpretating Date/Time 09/02/2017 10:26:18
--- NOTE | 2017-09-02 10:29 | PD.PROCEDR ---
Central Line Procedure REASON FOR PROCEDURE Central venous access PROCEDURE PERFORMED Central line placement: Left subclavian CONSENT Informed consent for procedure was not obtained emergent. The risks and benefits of the procedure were discussed to include but limited to bleeding, clot formation, infection, and even . ANESTHESIA Local injection of 1% Lidocaine DESCRIPTION OF THE PROCEDURE The patient was placed in supine, mild Trendelenburg position. The area was exposed and cleansed with ChloraPrep, times two. Large sterile drape was used to cover the patient, with the site exposed, under sterile conditions including cap, face mask, sterile gown, and sterile gloves. On single attempt, the introducer needle was inserted with negative pressure in syringe and venous flash was obtained. The guide wire was then advanced without any restriction and the needle was removed. The dilator was used without any complications. Using Seldinger technique the [ ] catheter was advanced over the guide wire to a depth of [ ] centimeters. The guide wire was removed. All ports were aspirated with dark venous blood return and flushed easily with sterile saline. All ports were capped. Antibiotic disc was placed around central line at puncture site. The central line was secured to the skin with two interrupted 2.0 silk sutures. The area was bandaged with sterile see-through central line bandage. RADIOLOGICAL DATA None COMPLICATIONS: No apparent complications ESTIMATED BLOOD LOSS: Less than 1 cc. Noelle Odell MD Sep 02, 2017 10:29
--- NOTE | 2017-09-02 10:30 | PD.PROCEDR ---
Procedure Note Procedure Procedure: Arterial Line Placement Left radial Diagnosis: Septic shock Indications: Same Consent: Emergent Description of the Procedure: The left wrist was prepped and draped sterilely. 1 % lidocaine was used for local anesthesia. The pulse was located and a needle was advanced into the artery. A 20 gauge, 1.34 cm catheter was advanced into the artery using a modified Seldinger technique. The catheter was sutured to the skin and a sterile dressing was applied. The catheter was connected to a pressure transducer and an arterial waveform was noted. There were no immediate complications noted. There was minimal EBL. I personally performed the procedure. Noelle Odell MD Sep 02, 2017 10:30
--- NOTE | 2017-09-02 10:32 | PD.PROCEDR ---
Procedure Note Procedure Endotracheal Intubation Diagnosis: Acute respiratory failure Indications: Same Consent: Emergent Anesthesia: see MAR Description of the Procedure: The patient was positioned in the sniffing position. Pre-oxygenation was performed using a 100% BVM. Anesthesia was induced via rapid sequence. A Mac 3 was used for laryngoscopy and a Grade 1 view was obtained. A 7.5 cuffed endotracheal tube was inserted atraumatically through the vocal cords. Confirmation of correct endotracheal tube placement was made by equal and bilateral breath sounds and colorimetric CO2 detection. The endotracheal tube was secured at 20 cm at the teeth. There were no immediate complications noted. The patient remained hemodynamically stable throughout the procedure. A chest x-ray has been ordered. I personally performed the procedure. Noelle Odell MD Sep 02, 2017 10:32
[2017-09-02] MEDS: FAMOTIDINE 20 MG/2 ML VIAL IV PUSH SCH (11:36)
[2017-09-02] MEDS: NOREPINEPHRINE INJ 8 MG in SODIUM CHLOR 0.9% 250 ML INJ 246 ML IV PRN ×2 (12:55→22:33)
[2017-09-02] MEDS: VASOPRESSIN INJ 40 UNITS in DEXTROSE 5% IN WATER 100ML INJ 98 ML IV SCH ×2 (13:06)
[2017-09-02] MEDS ORDERED: VANCOMYCIN 1,000 MG/NS 250 ML IV ONE ×2 (15:00)
--- NOTE | 2017-09-02 15:49 | PD.ID.CON ---
History of Present Illness Service ID Consult Requested By Reason for Consult Evaluation and mment of Septic Shock, MSSA bacteremia and endocarditis. Primary Care Physician No Primary Care Physician Diagnoses: History of Present Illness is a 27 y/o CF with history of IV drug abuse, last use Dilaudid 5 days ago, visiting here from [place]. She presents for evaluation of having myalgias and substernal sharp chest pain which has been constant. She reported earlier fevers as high as 104-105 at home checked orally. She reported earlier to others she had also developed generalized abdominal pain, muscle spasms, hemoptysis. She reports a history of asthma with no other significant past medical history. Father in the room and provided history. She was reportedly admitted at [facility] for osteomyelitis of right foot and because she was found doing drugs/smoking in hospital she was reportedly signed off. She then presented to [facility] where she was found to have staph bacteremia and discharged next day or so with oral antibiotics. She then came to [facility] and presented as above to [facility]. Hospital course: patient was conversing earlier today and had worsening AMS and resp status and ended up being intubated. She is currently in IMC on ventilator/ intubated, sedated, UO ok. On multiple pressors high doses. ID consult for evaluation and Mment of Septic Shock, MSSA bacteremia and endocarditis. Review of Systems ROS Limitations: Intubated Past Family Social History Allergies: Coded Allergies: neomycin (Verified Allergy, Severe, 09/01/17) Past Medical History Asthma IVDU Osteomyelitis Right foot partially treated in Jul 2017. Staph bacteremia in Aug 2017 Past Surgical History None per family. Reported Medications I attest that I have obtained, reviewed or updated home meds (for name, dose, route, frequency of medications) Reported Meds & Active Scripts Active No Active Prescriptions or Reported Medications Active Ordered Medications Current Medications Medications (Trade) Dose Ordered Sig/Marie Route Start Time Stop Time Status Last Admin Sodium Chloride 1,000 ml @ 75 mls/hr [id number] IV 09/01/17 19:24 09/02/17 12:54 (NS Flush) 2 ml UNSCH PRN IV FLUSH 09/01/17 19:30 (NS Flush) 2 ml BID IV FLUSH 09/01/17 21:00 09/01/17 20:16 (Tylenol) 650 mg Q6H PRN PO 09/01/17 19:30 ([place] 5-325 Mg) 1 tab Q4H PRN PO 09/01/17 19:30 (Morphine Inj) 2 mg Q2H PRN IV PUSH 09/01/17 19:30 09/01/17 23:51 (Zofran Inj) 4 mg Q6H PRN IV PUSH 09/01/17 19:30 (Ambien) 5 mg HS PRN PO 09/01/17 19:30 09/01/17 23:51 (Duoneb Neb) 1 ampule Q6HR NEB INH 09/01/17 22:00 09/02/17 08:54 (Duoneb Neb) 1 ampule Q2HR NEB PRN INH 09/01/17 19:30 09/02/17 00:44 Miscellaneous Information 1 Q361D XX 09/01/17 19:30 (Chlorhexidine 2% Cloth) 3 pack Taper DAILY@04 TOP 09/02/17 04:00 08/29/18 03:59 (Chlorhexidine 2% Cloth) 3 pack UNSCH PRN TOP 09/01/17 19:30 (Ann-Marie-Colace) 1 tab BID PO 09/01/17 21:00 (Milk Of Magnesia Liq) 30 ml Q12H PRN PO 09/01/17 19:30 (Senokot) 17.2 mg Q12H PRN PO 09/01/17 19:30 (Dulcolax Supp) 10 mg DAILY PRN RECTAL 09/01/17 19:30 (Lactulose Liq) 30 ml DAILY PRN PO 09/01/17 19:30 Pharmacy Profile Note 0 ml @ 0 mls/hr UNSCH OTHER 09/01/17 19:45 Piperacillin Sod/ Tazobactam Sod 50 ml @ 100 mls/hr Q6H IV 09/02/17 00:00 09/02/17 11:35 (Ativan Inj) 1 mg Q4H PRN IV PUSH 09/01/17 22:45 09/02/17 06:43 Phenylephrine HCl 40 mg/Dextrose 500 ml @ 30 mls/hr TITRATE PRN IV 09/02/17 05:30 09/02/17 15:30 (Brethine Inj) 1 mg UNSCH PRN SQ 09/02/17 05:30 Midazolam HCl 100 ml @ 2 mls/hr TITRATE PRN IV 09/02/17 08:00 09/02/17 08:29 Fentanyl Citrate 250 ml @ 5 mls/hr TITRATE PRN IV 09/02/17 08:00 09/02/17 08:29 Sodium Bicarbonate 150 meq/Sodium Chloride 1,000 ml @ 75 mls/hr [id number] IV 09/02/17 10:00 09/02/17 09:37 Norepinephrine Bitartrate 8 mg/ Sodium Chloride 254 ml @ 3.81 mls/hr TITRATE PRN IV 09/02/17 12:15 09/02/17 12:55 (Brethine Inj) 1 mg UNSCH PRN SQ 09/02/17 12:15 Vasopressin 40 units/Dextrose 100 ml @ 6 mls/hr [id number] IV 09/02/17 12:14 09/02/17 13:06 Vancomycin HCl 1000 mg/Sodium Chloride 250 ml @ 250 mls/hr ONCE ONCE IV 09/02/17 15:00 09/02/17 15:59 09/02/17 14:41 (Pepcid Inj) 10 mg Q12HR IV PUSH 09/03/17 09:00 Family History Reviewed and NC to current illness. Social History Positive for tobacco and IVDU, alcohol socially. Physical Exam Vital Signs Vital Signs Date Time Temp Pulse Resp B/P (MAP) Pulse Ox O2 Delivery O2 Flow Rate FiO2 09/02/17 15:30 102 87/38 09/02/17 14:15 100 122/72 09/02/17 14:00 98 09/02/17 13:11 83 128/80 09/02/17 13:11 83 128/80 09/02/17 13:06 103 90/52 09/02/17 13:01 100 40 09/02/17 12:55 101 105/63 09/02/17 12:00 98 09/02/17 12:00 50 09/02/17 12:00 96.6 98 24 84/50 (61) 100 09/02/17 12:00 98 84/50 09/02/17 11:45 121 88/44 09/02/17 11:30 126 88/38 09/02/17 11:00 96.0 09/02/17 11:00 60 09/02/17 10:30 70 09/02/17 10:07 100 100 09/02/17 10:00 80 09/02/17 10:00 129 09/02/17 09:00 90 09/02/17 08:12 100 100 09/02/17 08:05 100 09/02/17 08:00 122 81/48 09/02/17 08:00 123 09/02/17 08:00 122 42 93/56 (68) 97 09/02/17 07:00 Simple Mask 6.00 09/02/17 06:12 129 84/42 09/02/17 06:00 123 09/02/17 04:00 127 09/02/17 04:00 98.9 127 38 89/48 (62) 97 09/02/17 02:00 133 09/02/17 00:46 92 21 09/02/17 00:00 122 09/02/17 00:00 98.9 122 30 107/60 (76) 94 09/01/17 22:00 110 09/01/17 21:15 09/01/17 21:07 95 09/01/17 20:05 111 32 85/48 (60) 100 Venturi Mask 3.00 09/01/17 19:57 97.7 112 30 91/54 (66) Venturi Mask 3.00 09/01/17 18:38 95 Venturi Mask 3.00 09/01/17 18:38 32 09/01/17 18:33 125 28 108/59 (75) 96 Venturi Mask 3.00 31 09/01/17 18:32 Venturi Mask 6.00 50 09/01/17 18:00 114 34 108/58 (75) 96 Nasal Cannula 2.00 09/01/17 17:37 122 32 100/64 (76) 100 Nasal Cannula 2.00 09/01/17 17:05 Nasal Cannula 2.00 09/01/17 17:05 99 Room Air 09/01/17 16:41 98.8 133 28 127/67 (87) 96 09/01/17 16:30 99.0 135 26 89/58 (68) 95 Room Air Physical Exam GENERAL: Thin built, well-developed patient, in no apparent distress. SKIN: Track pryor noted. HEAD: Atraumatic. Normocephalic. No temporal or scalp tenderness. EYES: Pupils equal round and reactive. Extraocular motions intact. No scleral icterus. No injection or drainage. ENT: Nose without bleeding, purulent drainage or septal hematoma. Throat without erythema, tonsillar hypertrophy or exudate. Uvula midline. Airway patent. NECK: Intubated. CARDIOVASCULAR: Regular rate and rhythm without murmurs, gallops, or rubs. RESPIRATORY: Clear to auscultation. Breath sounds equal bilaterally. No wheezes , rales, or rhonchi. GASTROINTESTINAL: Abdomen soft, non-tender, nondistended. MUSCULOSKELETAL: Extremities without clubbing, cyanosis, or edema. NEUROLOGICAL: Sedated. Moves all 4 extremities. Psych cooperative IV line sites with no e/o infection. Laboratory Laboratory Tests Test 09/01/17 17:05 09/01/17 20:00 09/01/17 20:30 09/01/17 21:30 White Blood Count 15.7 Red Blood Count 4.19 Hemoglobin 12.3 Hematocrit 35.3 Mean Corpuscular Volume 84.4 Mean Corpuscular Hemoglobin 29.4 Mean Corpuscular Hemoglobin Concent 34.9 Red Cell Distribution Width 14.5 Platelet Count 61 Mean Platelet Volume 9.8 Neutrophils (%) (Auto) 83.5 Lymphocytes (%) (Auto) 6.2 Monocytes (%) (Auto) 5.2 Eosinophils (%) (Auto) 4.7 Basophils (%) (Auto) 0.4 Neutrophils # (Auto) 13.1 Lymphocytes # (Auto) 1.0 Monocytes # (Auto) 0.8 Eosinophils # (Auto) 0.7 Basophils # (Auto) 0.1 CBC Comment AUTO DIFF Differential Total Cells Counted 100 Neutrophils % (Manual) 70 Band Neutrophils % 13 Lymphocytes % 8 Monocytes % 5 Neutrophils # (Manual) 13.7 Metamyelocytes 4 Differential Comment FINAL DIFF MANUAL Atypical Lymphocytes Toxic Granulation 2+ Toxic Vacuolation PRESENT Platelet Estimate LOW Platelet Morphology Comment GIANT Red Cell Morphology Comment NORMAL Prothrombin Time 10.8 Prothromb Time International Ratio 1.0 Activated Partial Thromboplast Time 32.0 Blood Urea Nitrogen 67 Creatinine 2.68 Random Glucose 109 Total Protein 7.7 Albumin 2.5 Calcium Level 8.6 Alkaline Phosphatase 97 Aspartate Amino Transf (AST/SGOT) 96 Alanine Aminotransferase (ALT/SGPT) 42 Total Bilirubin 0.6 Sodium Level 126 Potassium Level 3.5 Chloride Level 89 Carbon Dioxide Level 24.3 Anion Gap 13 Estimat Glomerular Filtration Rate 21 Lactic Acid Level 2.6 1.4 Total Creatine Kinase 156 Creatine Kinase MB 3.3 Troponin I LESS THAN 0.02 Lipase 139 Urine Color YELLOW Urine Turbidity HAZY Urine pH 5.5 Urine Specific [place] 1.011 Urine Protein 30 Urine Glucose (UA) NEG Urine Ketones NEG Urine Occult Blood LARGE Urine Nitrite NEG Urine Bilirubin NEG Urine Urobilinogen LESS THAN 2.0 Urine Leukocyte Esterase NEG Urine RBC 2 Urine WBC 7 Urine Squamous Epithelial Cells 1 Urine Amorphous Sediment OCC Urine Bacteria OCC Microscopic Urinalysis Comment CATH-CULTURE IND Urine Opiates Screen POS Urine Barbiturates Screen NEG Urine Amphetamines Screen POS Urine Benzodiazepines Screen NEG Urine Cocaine Screen POS Urine Cannabinoids Screen NEG Nasal Screen MRSA (PCR) MRSA NOT DETECTED Test 09/01/17 23:37 09/02/17 04:28 09/02/17 08:19 09/02/17 12:20 Troponin I LESS THAN 0.02 LESS THAN 0.02 LESS THAN 0.02 Beta HCG, Qualitative LESS THAN 1 Blood Gas Puncture Site ART LINE Blood Gas Patient Temperature 98.6 Blood Gas HCO3 16 Blood Gas Base Excess -10.5 Blood Gas Oxygen Saturation 98 Arterial Blood pH 7.18 Arterial Blood Partial Pressure CO2 46 Arterial Blood Partial Pressure O2 228 Arterial Blood Oxygen Content 13.7 Arterial Blood Carboxyhemoglobin 0.6 Arterial Blood Methemoglobin 0.5 Blood Gas Hemoglobin 9.5 Blood Gas Ventilator Setting Blood Gas Inspired Oxygen 100 Random Vancomycin Level 8.6 Date/Time Source Procedure Growth Status 09/01/17 17:10 Blood Peripheral Aerobic Blood Culture - Preliminary Gram Positive Cocci Resulted 09/01/17 17:10 Anaerobic Blood Culture - Preliminary Gram Positive Cocci Resulted 09/02/17 15:20 Sputum Endotracheal Gram Stain Pending Received 09/02/17 15:20 Sputum Endotracheal Sputum Culture Pending Received 09/01/17 20:30 Urine Catheterized Urine Legionella Antigen - Final PRESUMPTIVE NEGATIVE FOR LEGIONELLA P... Complete 09/01/17 20:30 Urine Catheterized Urine Streptococcus pneumoniae Antigen (M - Final PRESUMPTIVE NEGATIVE FOR STREPTOCOCCU... Complete Result Diagram: 09/01/175 09/01/17 1705 Imaging Last Impressions Chest X-Ray 09/02/17 0000 Signed Impressions: Service Date/Time: Saturday, September 02, 2017 08:22 - CONCLUSION: 1. ETT in good position. Left subclavian central line in the very proximal right atrium. 2. Redemonstration of numerous bilateral masslike airspace opacities with progressive intervening airspace disease consistent with diffuse infection and developing ARDS. Bereket Pozo MD Chest CT 09/02/17 0000 Signed Impressions: Service Date/Time: Saturday, September 02, 2017 10:00 - CONCLUSION: Extensive bilateral infiltrates. Small effusions. Lorenzo Junior MD Abdomen/Pelvis CT 09/01/175 Signed Impressions: Service Date/Time: Friday, September 01, 2017 19:37 - CONCLUSION: 1. Multiple prominent areas of consolidation at the lung bases. Several of these have a rounded configuration raising possibility of septic emboli. Diffuse infection could have a similar appearance. 2. Mild proximal spleen. 3. 5.9 center cystic area in the right adnexa likely related to right ovarian cyst. 4. Mild to moderate dilatation of the collecting systems bilaterally. The ureters do not appear distended. Lorenzo Perez MD Assessment and Plan Assessment and Plan Septic Shock present on admission MSSA bacteremia based on verigene testing. MSSA Endocarditis. Pulm septic emboli multiple. Acute resp failure: sepsis. Acute renal failure: sepsis related. Acute encephalopathy: sepsis, infection. IVDA Recs: Continue Zosyn IV possible aspiration. Continue Vanco IV(target 15-20) possible MRSA cultures pending. Continue Ancef 2 gm IV q8hrs (MSSA endocarditis) TTE reportedly negative. No official report on chart. MRI brain non contrast r/o infarcts, septic emboli related abscess. Repeat blood cultures Follow cultures Follow clinically. Discussed Condition With Full code. Goals remain aggressive. Dad in room and due to age would like to continue aggressive care. Jada Zamudio MD Sep 02, 2017 15:49
[2017-09-02] MEDS ORDERED: ceFAZolin 2 GM PREMIX 50 ML IV SCH (16:00)
[2017-09-02] MEDS: ceFAZolin 1,000 MG/NS 100 ML IV SCH ×2 (16:51)
[2017-09-02] MEDS ORDERED: MIDAZOLAM HCL 5 MG/ML VIAL (1 ML) ONE (17:23)
[2017-09-02] MEDS ORDERED: ROCURONIUM INJ 50 MG/5 ML VIAL ONE (17:23)
[2017-09-02] MEDS ORDERED: MIDAZOLAM HCL 5 MG/5 ML VIAL IV PUSH ONE (17:30)
[2017-09-02] MEDS ORDERED: ROCURONIUM INJ 100 MG/10 ML VIAL IV ONE (17:30)
[2017-09-02] MEDS ORDERED: ROCURONIUM INJ 50 MG/5 ML VIAL IV SCH (17:30)
[2017-09-02] MEDS ORDERED: ROCURONIUM INJ 50 MG/5 ML VIAL IV PRN (18:00)
--- NOTE | 2017-09-02 18:27 | RADRPT ---
EXAM DATE/TIME: 09/02/2017 17:21 [facility] COMPARISON: No previous studies available for comparison. INDICATIONS : Abscess. IVDU. MEDICAL HISTORY : None. SURGICAL HISTORY : Appendectomy. ENCOUNTER: Subsequent ACUITY: 2 day PAIN SCORE: Nonresponsive. LOCATION: head. TECHNIQUE: Multiplanar, multisequence MRI of the brain was performed without contrast. FINDINGS: CEREBRUM: The ventricles are normal for age. No evidence of midline shift, mass lesion, hemorrhage or acute in farction. No extraaxial fluid collections are seen. The pituitary gland and suprasellar cistern are normal in configuration. WHITE MATTER: No significant signal abnormalities are seen in the white matter. POSTERIOR FOSSA: The cerebellum and brainstem are intact. The 4th ventricle is midline. The cerebellopontine angle is unremarkable. The cerebellar tonsils are normal in position. DIFFUSION IMAGING: No focal areas of restricted diffusion are seen. No evidence of acute infarction. EXTRACRANIAL: The visualized portions of the orbits and paranasal sinuses are unremarkable. CONCLUSION: Normal examination. Lorenzo Perez MD on September 02, 2017 at 18:23 Board Certified Radiologist. This report was verified electronically.
--- NOTE | 2017-09-02 22:15 | ECHRPT ---
Indication: CONCLUSIONS Normal left ventricular size and wall thickness. The left ventricular systolic function is normal wi th an estimated ejection fraction in the range of 60-65%. Left ventricular diastolic function parameters a re normal. There is trace tricuspid valve regurgitation. The estimated pulmonary arterial pressure is 25 mmHg. There is a trace pericardial effusion present. No evidence of valvular vegetations. BP: / HR: 130 Rhythm: Other Technical Quality:Fair FINDINGS LEFT VENTRICLE Normal left ventricular size and wall thickness. The left ventricular systolic function is normal wi th an estimated ejection fraction in the range of 60-65%. Left ventricular diastolic function parameters a re normal. RIGHT VENTRICLE Normal right ventricular size and systolic function. LEFT ATRIUM The left atrial size is normal. RIGHT ATRIUM The right atrial size is normal. ATRIAL SEPTUM Normal atrial septal thickness without atrial level shunting by limited color doppler interrogation. AORTA The aortic root and proximal ascending aorta are normal in size on limited imaging. MITRAL VALVE Structurally normal mitral valve. No mitral valve stenosis or regurgitation. AORTIC VALVE Trileaflet aortic valve. No aortic valve stenosis or regurgitation. TRICUSPID VALVE There is trace tricuspid valve regurgitation. The estimated pulmonary arterial pressure is 25 mmHg. PULMONARY VALVE The pulmonary valve is not well visualized. VESSELS The inferior vena cava is normal in size. PERICARDIUM There is a trace pericardial effusion present. Mckay Rolle MD, FACC Edited by: Myreks [employer] Agent (Electronically Signed) Final Date:02 September 2017 14:10 Amended: 02 September 2017 22:14
[2017-09-03] VITALS (18 sets, daily range): BP systolic 99–144; BP diastolic 48–75; PULSE 85–111; RESP 17–24; TEMP 99.5–100.6; O2SAT 100
[2017-09-03] MEDS: ceFAZolin 1,000 MG/NS 100 ML IV SCH ×6 (00:43→16:57)
[2017-09-03] MEDS: VASOPRESSIN INJ 40 UNITS in DEXTROSE 5% IN WATER 100ML INJ 98 ML IV SCH ×4 (02:53→20:37)
[2017-09-03] MEDS: NOREPINEPHRINE INJ 8 MG in SODIUM CHLOR 0.9% 250 ML INJ 246 ML IV PRN ×2 (03:13→13:16)
[2017-09-03] MEDS: RESP: ALBUTEROL 2.5 MG/IPRATROPIUM 0.5 MG NEB (SCH) INH ×4 (03:28→20:54)
[2017-09-03 04:28] LABS: BLOOD GAS BASE EXCESS -2.7 mmol/L (-2-2); BLOOD GAS CARBOXYHEMOGLOBIN 1.1 % (0-4); BLOOD GAS HCO3 21 mmol/L (22-26); BLOOD GAS METHEMOGLOBIN 0.8 % (0-2); BLOOD GAS O2 HGB SATURATION 96 % (90-100); BLOOD GAS OXYGEN CONTENT 13.1 Vol % (12.0-20.0); BLOOD GAS PCO2 34 mmHg (38-42); BLOOD GAS PO2 97 mmHg (61-120); BLOOD GAS TOTAL HGB 9.6 G/DL (12.0-16.0); TEMP CORR TO 98.6
[2017-09-03 04:29] LABS: CRITICAL VALUE NO; DRAW SITE ART LINE; FIO2 40 %; OXYGEN DEVICE VENTILATOR; STAT NO
[2017-09-03] MEDS: CHLORHEXIDINE GLUCONATE 2 % 1 PACK (2 CLOTHS) TOP SCH (04:54)
[2017-09-03 04:55] LABS: HEMATOCRIT 28.7 % (35.0-46.0); MEAN CELL VOLUME 85.4 FL (80.0-100.0); MEAN CORPUSCULAR HEMOGLOBIN 28.7 PG (27.0-34.0); MEAN CORPUSCULAR HGB CONC 33.6 % (32.0-36.0); PLATELET COUNT 98 TH/MM3 (150-450); RED BLOOD COUNT 3.37 MIL/MM3 (4.00-5.30); WHITE BLOOD COUNT 18.1 TH/MM3 (4.0-11.0)
[2017-09-03] MEDS: PIPERACIL-TAZO 3.375 GM PREMIX 50 ML IV SCH ×3 (05:11→17:41)
[2017-09-03 05:25] LABS: REVIEW FLAG FINAL
[2017-09-03 05:27] LABS: BICARBONATE 24.3 MEQ/L (21.0-32.0); MAGNESIUM 2.3 MG/DL (1.5-2.5)
[2017-09-03 05:30] LABS: POTASSIUM 2.9 MEQ/L (3.5-5.1)
[2017-09-03] MEDS: POTASSIUM CHLOR 40 MEQ PREMIX 100 ML IV PRN ×2 (05:59→09:14)
[2017-09-03] MEDS ORDERED: MAGNESIUM OXIDE 400 MG TAB PO PRN (06:00)
[2017-09-03] MEDS ORDERED: POTASSIUM CHLORIDE 25 MEQ EFFERVESCENT TAB PO PRN (06:00)
[2017-09-03] MEDS ORDERED: VANCOMYCIN INJ 750 MG in SODIUM CHLOR 0.9% 250 ML INJ 250 ML IV SCH (06:00)
[2017-09-03] MEDS ORDERED: MAGNESIUM SULFATE INJ 2 GM in SODIUM CHLORIDE 0.9% INJ 96 ML IV PRN (06:00)
[2017-09-03] MEDS ORDERED: POTASSIUM PHOSPHATE MONOBASIC 500 MG TAB PO PRN (06:00)
[2017-09-03] MEDS ORDERED: MAGNESIUM SULFATE INJ 4 GM in SODIUM CHLORIDE 0.9% INJ 92 ML IV PRN (06:00)
[2017-09-03] MEDS ORDERED: POTASSIUM PHOSPHATE MONOBASIC 500 MG TAB PO/TUBE PRN (06:00)
[2017-09-03] MEDS ORDERED: SODIUM PHOSPHATE INJ 30 MMOL in SODIUM CHLOR 0.9% 250 ML INJ 240 ML IV PRN (06:00)
[2017-09-03] MEDS ORDERED: POTASSIUM CHLOR 20 MEQ PREMIX 100 ML IV PRN ×2 (06:00)
[2017-09-03] MEDS ORDERED: POTASSIUM PHOSPHATE INJ 30 MMOL in SODIUM CHLOR 0.9% 250 ML INJ 250 ML IV PRN (06:00)
[2017-09-03] MEDS ORDERED: POTASSIUM CHLOR 40 MEQ PREMIX 100 ML IV PRN (06:00)
[2017-09-03] MEDS: SODIUM CHLOR 0.9% 1000 ML INJ 1,000 ML IV SCH ×2 (06:03→19:18)
--- NOTE | 2017-09-03 06:32 | RADRPT ---
EXAM DATE/TIME: 09/03/2017 04:55 [facility] COMPARISON: CHEST SINGLE AP, September 02, 2017, 8:22. INDICATIONS : Respiratory failure. MEDICAL HISTORY : None. SURGICAL HISTORY : None. ENCOUNTER: Subsequent ACUITY: 2 days PAIN SCORE: Non-responsive. LOCATION: Bilateral chest FINDINGS: Mid and lower lung predominant patchy airspace opacities are again noted, not significantly changed o n the left by worsening laterally on the right. Small, bilateral pleural effusions are present. No pn eumothorax radiograph heart size stable, within normal limits. Endotracheal tube tip is approximately 3 cm above the ciera. There is a nasogastric tube coursing in to the stomach. Left subclavian central venous catheter again noted, tip in the right atrium. CONCLUSION: Extensive bilateral patchy airspace disease, worsening at the right base. Lorenzo Randolph MD on September 03, 2017 at 6:29 Board Certified Radiologist. This report was verified electronically.
--- NOTE | 2017-09-03 08:23 | HHI.CCPN ---
Subjective Remarks/Hospital Course 27-year-old very pleasant female with history of IV drug abuse, last use Dilaudid 5 days ago, visiting here from [place], presents for evaluation of having myalgias and substernal sharp chest pain which has been constant. She reports fevers as high as 104-105 at home checked orally. She reports today she has also developed generalized abdominal pain, muscle spasms, hemoptysis. She reports a history of asthma with no other significant past medical history. 09/02: The patient was noted to be tachypnea , respiratory rate 40s and shallow , as well as tachycardic and hypotensive phenylephrine infusing at 50 mcgs.the patient was emergently intubated 1 attempt ABGs revealed metabolic and respiratory acidosis with a pH of 7.18 .Possible septic emboli noted on chest x -ray. Multiple bilateral lung masses. Stat CT thorax pending, no angiogram 2/ 2 elevated creatinine. Sodium bicarbonate infusion initiated. 09/03: Diffuse bilateral lung consolidations with destruction - typical of Staph. This looks like tricuspid valve endocarditis. She remains floridly septic and requiring multiple vasopressors to maintain acceptable blood pressure. Objective Vital Signs Date Time Temp Pulse Resp B/P (MAP) Pulse Ox O2 Delivery O2 Flow Rate FiO2 09/03/17 07:39 100 40 09/03/17 06:00 95 09/03/17 04:50 127/70 09/03/17 04:00 99.5 22 09/02/17 19:00 Mechanical Ventilator 09/02/17 07:00 6.00 Intake and Output 09/03/17 09/03/17 09/04/17 08:00 16:00 00:00 Intake Total 2943 ml Output Total 725 ml Balance 2218 ml Result Diagram: 09/03/17 0430 09/03/17 0430 Other Results Microbiology Date/Time Source Procedure Growth Status 09/01/17 17:50 Nasal Aspirate Influenza Types A,B Antigen (TMO) - Final NEGATIVE FOR FLU A AND B ANTIGEN.... Complete 09/01/17 20:30 Urine Catheterized Urine Legionella Antigen - Final PRESUMPTIVE NEGATIVE FOR LEGIONELLA P... Complete 09/01/17 20:30 Urine Catheterized Urine Streptococcus pneumoniae Antigen (M - Final PRESUMPTIVE NEGATIVE FOR STREPTOCOCCU... Complete Laboratory Tests Test 09/02/17 08:19 09/03/17 04:10 Blood Gas Puncture Site ART LINE ART LINE Blood Gas Patient Temperature 98.6 98.6 Blood Gas HCO3 16 mmol/L (22-26) 21 mmol/L (22-26) Blood Gas Base Excess -10.5 mmol/L (-2-2) -2.7 mmol/L (-2-2) Blood Gas Oxygen Saturation 98 % (90-100) 96 % (90-100) Arterial Blood pH 7.18 (7.380-7.420) 7.42 (7.380-7.420) Arterial Blood Partial Pressure CO2 46 mmHg (38-42) 34 mmHg (38-42) Arterial Blood Partial Pressure O2 228 mmHG (61-120) 97 mmHg (61-120) Arterial Blood Oxygen Content 13.7 Vol % (12.0-20.0) 13.1 Vol % (12.0-20.0) Arterial Blood Carboxyhemoglobin 0.6 % (0-4) 1.1 % (0-4) Arterial Blood Methemoglobin 0.5 % (0-2) 0.8 % (0-2) Blood Gas Hemoglobin 9.5 G/DL (12.0-16.0) 9.6 G/DL (12.0-16.0) Blood Gas Ventilator Setting COMMENT Blood Gas Inspired Oxygen 100 % 40 % Oxygen Delivery Device VENTILATOR Imaging Last Impressions Abdomen/Pelvis CT 09/01/171814 Signed Impressions: Service Date/Time: Friday, September 01, 2017 19:37 - CONCLUSION: 1. Multiple prominent areas of consolidation at the lung bases. Several of these have a rounded configuration raising possibility of septic emboli. Diffuse infection could have a similar appearance. 2. Mild proximal spleen. 3. 5.9 center cystic area in the right adnexa likely related to right ovarian cyst. 4. Mild to moderate dilatation of the collecting systems bilaterally. The ureters do not appear distended. Lorenzo Perez MD Chest X-Ray 09/01/17 1642 Signed Impressions: Service Date/Time: Friday, September 01, 2017 17:20 - CONCLUSION: 1. Abnormal examination demonstrating multiple bilateral apparent lung masses. Findings are concerning for septic emboli in this young patient although differential considerations include metastatic disease. There is a CT examination of the chest pending. Bereket Pozo MD Objective Remarks GENERAL: Ill-appearing woman, septic. SKIN: Warm and dry. Multiple punctate lesions from skin popping noted over trunk and extremities. HEAD: Normocephalic. EYES: No scleral icterus. No injection or drainage. NECK: Supple, trachea midline.Orally intubated. CARDIOVASCULAR: Regular rate and rhythm without murmurs, gallops, or rubs. RESPIRATORY: Breath sounds equal bilaterally. Diffuse rhonchi. GASTROINTESTINAL: Abdomen soft, non-tender, nondistended. Active bowel sounds MUSCULOSKELETAL: No cyanosis, or edema. Tepid, poorly perfused. BACK: Nontender without obvious deformity. NEURO EXAM: Moves 4 limbs, opens eyes. Procedures 09/02-CT angiogram pulmonary 09/02- transthoracic echocardiogram Date of Insertion: Sep 02, 2017 Line: Central Venous Catheter Side: Right Location: Subclavian A/P Assessment and Plan Metabolic Encephalopathy 2/2 sepsis Toxic Encephalopathy- Cocaine, Amphetamines Neuro checks per ICU Protocol F/U MRI brain 01/01 septic emboli Obtain Echo -r/o PFO, vegetations and evaluate function Hemoptysis Acute hypercapnic and hypoxemic respiratory failure - Pulmonary septic emboli - Blood cultures - Broad-spectrum antibiotics - Infectious disease consulted - De-escalate per sensitivity -09/02 intubated 7.5 at 22cm @lip -Obtain sputum culture -Obtain CT chest-unable to do angiogram secondary to elevated creatinine -Versed and fentanyl infusions for ventilator synchrony -Daily sedation vacation Myalgias and fevers Septic shock Metabolic acidosis - Broad-spectrum antibiotics -Obtain stat 2-D echo to rule out endocarditis at the patient with a history of IVDU - Tylenol when necessary for fevers -Follow-up blood , urine and sputum cultures- blood gram-positive bacteremia. Vancomycin, Zosyn initiated -Patient currently on norepinephrine, vasopressin, phenylephrine with maintenance of MAP greater than 65mmHg Acute kidney injury Dehydration -Insert [place] - IV fluid resuscitation - Strict I's and O's - Monitor creatinine and electrolytes IVDU - Monitor for withdrawal - Morphine [place] and Ativan when necessary - Seizure precautions Hyperglycemia critical illness DVT GI prophylaxis - Teds SCDs - Hold pharmacological DVT prophylaxis due to hemoptysis - Pepcid Critical Care: Left subclavian line Place left radial art line placed patient emergently intubated. Overall impression: Critically ill woman requiring markedly elevated ventilator settings to oxygenate. [place] septic with Staph bacteremia and pneumonia. Critical care 44 mins Sachin Goodson MD Sep 03, 2017 08:23
[2017-09-03] MEDS: FAMOTIDINE 20 MG/2 ML VIAL IV PUSH SCH ×2 (09:12→20:36)
[2017-09-03] MEDS: SODIUM CHLORIDE 0.9% FLUSH 10 ML FLUSH IV FLUSH SCH ×2 (09:12→20:37)
[2017-09-03] MEDS: fentaNYL DRIP 250 ML IV PRN ×2 (09:14→22:20)
[2017-09-03] MEDS: DOCUSATE SODIUM 50 MG/SENNA 8.6 MG TAB PO SCH ×2 (09:15→20:36)
[2017-09-03] MEDS: VANCOMYCIN INJ 750 MG in SODIUM CHLOR 0.9% 250 ML INJ 250 ML IV SCH (12:12)
--- NOTE | 2017-09-03 20:12 | HHI.IDPN ---
Subjective Subjective Remarks Delayed entry pt seen at approx 3 pm. is a 27 y/o CF with history of IV drug abuse, last use Dilaudid 5 days ago, visiting here from [place]. She presents for evaluation of having myalgias and substernal sharp chest pain which has been constant. She reported earlier fevers as high as 104-105 at home checked orally. She reported earlier to others she had also developed generalized abdominal pain, muscle spasms, hemoptysis. She reports a history of asthma with no other significant past medical history. Father in the room and provided history. She was reportedly admitted at [facility] for osteomyelitis of right foot and because she was found doing drugs/smoking in hospital she was reportedly signed off. She then presented to [facility] where she was found to have staph bacteremia and discharged next day or so with oral antibiotics. She then came to [facility] and presented as above to [facility]. Hospital course: patient was conversing earlier today and had worsening AMS and resp status and ended up being intubated. She is currently in IMC on ventilator/ intubated, sedated, UO ok. On multiple pressors high doses. ID consult for evaluation and Mment of Septic Shock, MSSA bacteremia and endocarditis. Overnight events reviewed remains intubated. Secretions thick yellow moderate quantity. UO marginal. Moves all 4 extremities per report. Pressor requirements decreased compared to yday. Low grade fevers persist. No rash No diarrhea Antibiotics Zosyn IV Ancef IV Vanco IV Lines Line sites with no e.o infection. Past Medical History Staph osteomyelitis Staph bacteremia Allergies: Coded Allergies: neomycin (Verified Allergy, Severe, 09/01/17) Objective . Vital Signs Date Time Temp Pulse Resp B/P (MAP) Pulse Ox O2 Delivery O2 Flow Rate FiO2 09/03/17 18:00 105 09/03/17 18:00 105 115/53 09/03/17 17:15 99 116/57 09/03/17 16:22 100 40 09/03/17 16:00 40 09/03/17 16:00 100.4 99 24 100/57 (71) 100 09/03/17 16:00 99 09/03/17 14:00 97 09/03/17 13:20 94 123/59 09/03/17 13:16 94 123/59 09/03/17 12:46 100 40 09/03/17 12:00 98 09/03/17 12:00 40 09/03/17 12:00 100.6 92 23 109/54 (72) 100 09/03/17 10:00 96 09/03/17 08:00 100.0 88 17 106/60 (75) 100 09/03/17 08:00 88 09/03/17 08:00 40 09/03/17 07:39 100 40 09/03/17 07:00 100 Mechanical Ventilator 40 09/03/17 06:00 95 09/03/17 04:50 90 127/70 09/03/17 04:40 86 130/71 09/03/17 04:30 87 136/70 09/03/17 04:20 86 136/70 09/03/17 04:10 85 137/70 09/03/17 04:00 100 40 09/03/17 04:00 40 09/03/17 04:00 85 09/03/17 04:00 85 144/75 09/03/17 04:00 99.5 85 22 144/75 (98) 100 09/03/17 03:13 92 124/67 09/03/17 03:03 93 121/68 09/03/17 02:53 93 120/66 09/03/17 02:00 94 09/03/17 00:01 100 40 09/03/17 00:00 96 09/03/17 00:00 99.9 96 21 99/57 (71) 100 09/03/17 00:00 40 09/02/17 22:33 98 102/63 09/02/17 22:00 94 09/02/17 20:28 100 40 09/03/17 09/03/17 09/04/17 15:00 23:00 07:00 Intake Total 1351.5 ml 1095 ml Output Total 300 ml Balance 1351.5 ml 795 ml Intake Oral 0 ml IV Total 1351.5 ml 1035 ml Other 60 ml Output Urine Total 275 ml Gastric Drainage Total 25 ml # Bowel Movements 0 . Laboratory Tests Test 09/03/17 04:30 White Blood Count 18.1 TH/MM3 Red Blood Count 3.37 MIL/MM3 Hemoglobin 9.7 GM/DL Hematocrit 28.7 % Mean Corpuscular Volume 85.4 FL Mean Corpuscular Hemoglobin 28.7 PG Mean Corpuscular Hemoglobin Concent 33.6 % Red Cell Distribution Width 15.0 % Platelet Count 98 TH/MM3 Mean Platelet Volume 9.0 FL Laboratory Tests Test 09/01/17 23:37 09/02/17 04:28 09/02/17 12:20 09/03/17 04:30 Troponin I LESS THAN 0.02 NG/ML LESS THAN 0.02 NG/ML LESS THAN 0.02 NG/ML Beta HCG, Qualitative LESS THAN 1 MIU/ML Blood Urea Nitrogen 40 MG/DL Creatinine 1.29 MG/DL Random Glucose 159 MG/DL Total Protein 5.4 GM/DL Calcium Level 7.1 MG/DL Phosphorus Level 2.3 MG/DL Magnesium Level 2.3 MG/DL Sodium Level 144 MEQ/L Potassium Level 2.9 MEQ/L Chloride Level 110 MEQ/L Carbon Dioxide Level 24.3 MEQ/L Anion Gap 10 MEQ/L Estimat Glomerular Filtration Rate 49 ML/MIN Protein Corrected Calcium 8.0 MG/DL Test 09/03/17 11:50 Potassium Level 3.9 MEQ/L Phosphorus Level 2.0 MG/DL Microbiology Date/Time Source Procedure Growth Status 09/03/17 04:30 Blood Peripheral Aerobic Blood Culture Pending Received 09/03/17 04:30 Blood Peripheral Anaerobic Blood Culture Pending Received 09/02/17 16:25 Blood Peripheral Aerobic Blood Culture - Preliminary Gram Positive Cocci Resulted 09/02/17 16:25 Blood Peripheral Anaerobic Blood Culture - Preliminary NO GROWTH IN 1 DAY Resulted 09/01/17 17:10 Blood Peripheral Aerobic Blood Culture - Preliminary Staphylococcus Aureus Resulted 09/01/17 17:10 Anaerobic Blood Culture - Preliminary Staphylococcus Aureus Resulted 09/01/17 17:05 Blood Peripheral Aerobic Blood Culture - Preliminary Staphylococcus Aureus Resulted 09/01/17 17:05 Anaerobic Blood Culture - Preliminary Staphylococcus Aureus Resulted 09/03/17 16:40 Sputum Endotracheal Gram Stain Pending Received 09/03/17 16:40 Sputum Endotracheal Sputum Culture Pending Received 09/02/17 15:20 Sputum Endotracheal Gram Stain - Final Resulted 09/02/17 15:20 Sputum Culture - Preliminary Staphylococcus Aureus Resulted 09/01/17 17:50 Nasal Aspirate Influenza Types A,B Antigen (TOM) - Final NEGATIVE FOR FLU A AND B ANTIGEN.... Complete 09/01/17 20:30 Urine Catheterized Urine Legionella Antigen - Final PRESUMPTIVE NEGATIVE FOR LEGIONELLA P... Complete 09/01/17 20:30 Urine Catheterized Urine Streptococcus pneumoniae Antigen (M - Final PRESUMPTIVE NEGATIVE FOR STREPTOCOCCU... Complete 09/01/17 20:30 Urine Catheterized Urine Urine Culture - Final NO GROWTH IN 48 HOURS. Complete Imaging Last Impressions Chest X-Ray 09/03/17 0600 Signed Impressions: Service Date/Time: August 04:55 - CONCLUSION: Extensive bilateral patchy airspace disease, worsening at the right base. Lorenzo Randolph MD Chest CT 09/02/17 0000 Signed Impressions: Service Date/Time: Saturday, September 02, 2017 10:00 - CONCLUSION: Extensive bilateral infiltrates. Small effusions. Lorenzo Junior MD Brain MRI 09/02/17 0000 Signed Impressions: Service Date/Time: Saturday, September 02, 2017 17:21 - CONCLUSION: Normal examination. Lorenzo Perez MD Abdomen/Pelvis CT [id number]/01/[id number] Signed Impressions: Service Date/Time: Friday, September 01, 2017 19:37 - CONCLUSION: 1. Multiple prominent areas of consolidation at the lung bases. Several of these have a rounded configuration raising possibility of septic emboli. Diffuse infection could have a similar appearance. 2. Mild proximal spleen. 3. 5.9 center cystic area in the right adnexa likely related to right ovarian cyst. 4. Mild to moderate dilatation of the collecting systems bilaterally. The ureters do not appear distended. Lorenzo Perez MD Physical Exam GENERAL: Thin built, well-developed patient, in no apparent distress. SKIN: Track pryor noted. HEAD: Atraumatic. Normocephalic. No temporal or scalp tenderness. EYES: Pupils equal round and reactive. Extraocular motions intact. No scleral icterus. No injection or drainage. ENT: Nose without bleeding, purulent drainage or septal hematoma. Throat without erythema, tonsillar hypertrophy or exudate. Uvula midline. Airway patent. NECK: Intubated. CARDIOVASCULAR: Regular rate and rhythm without murmurs, gallops, or rubs. RESPIRATORY: Clear to auscultation. Breath sounds equal bilaterally. No wheezes , rales, or rhonchi. GASTROINTESTINAL: Abdomen soft, non-tender, nondistended. MUSCULOSKELETAL: Extremities without clubbing, cyanosis, or edema. NEUROLOGICAL: Sedated. Moves all 4 extremities. Psych cooperative IV line sites with no e/o infection. Assessment & Plan Remarks Septic Shock present on admission MSSA bacteremia based on verigene testing. MSSA Endocarditis. Pulm septic emboli multiple. Acute resp failure: sepsis. Acute renal failure: sepsis related. Acute encephalopathy: sepsis, infection. IVDA Recs: Continue Zosyn IV possible aspiration. Continue Vanco IV(target 15-20) possible MRSA cultures still pending. Continue Ancef 2 gm IV q8hrs (MSSA endocarditis) TTE negative. If bacteremia persists will need BIN. MRI brain non contrast negative. Repeat blood cultures again today. Follow cultures Follow clinically. d/w Jada Mcguire MD Sep 03, 2017 20:12
[2017-09-04] VITALS (18 sets, daily range): BP systolic 98–126; BP diastolic 50–76; PULSE 92–118; RESP 14–26; TEMP 98.6–100.4; O2SAT 98–100
[2017-09-04] MEDS: PIPERACIL-TAZO 3.375 GM PREMIX 50 ML IV SCH ×3 (00:47→12:34)
[2017-09-04] MEDS: ceFAZolin 1,000 MG/NS 100 ML IV SCH ×4 (01:22→09:01)
[2017-09-04] MEDS ORDERED: SODIUM CHLOR 0.9% 1000 ML INJ 3,000 ML IV ONE (01:45)
[2017-09-04] MEDS: RESP: ALBUTEROL 2.5 MG/IPRATROPIUM 0.5 MG NEB (SCH) INH ×4 (03:41→20:21)
[2017-09-04] MEDS: CHLORHEXIDINE GLUCONATE 2 % 1 PACK (2 CLOTHS) TOP SCH (04:00)
[2017-09-04 04:54] LABS: BLOOD GAS BASE EXCESS -8.2 mmol/L (-2-2); BLOOD GAS CARBOXYHEMOGLOBIN 1.2 % (0-4); BLOOD GAS HCO3 17 mmol/L (22-26); BLOOD GAS METHEMOGLOBIN 0.8 % (0-2); BLOOD GAS O2 HGB SATURATION 96 % (90-100); BLOOD GAS OXYGEN CONTENT 10.9 Vol % (12.0-20.0); BLOOD GAS PCO2 32 mmHg (38-42); BLOOD GAS PO2 119 mmHg (61-120); BLOOD GAS TOTAL HGB 7.9 G/DL (12.0-16.0); TEMP CORR TO 98.6
[2017-09-04 04:55] LABS: CRITICAL VALUE NO; FIO2 40 %; OXYGEN DEVICE VENTILATOR; VENT SETTINGS PRVC/AC
[2017-09-04 04:56] LABS: DRAW SITE ART LINE; STAT NO
[2017-09-04 05:00] LABS: AUTOMATED NEUTROPHIL # 7.9 TH/MM3 (1.8-7.7); BASOPHIL % 0.4 % (0.0-2.0); EOSINOPHIL % 0.3 % (0.0-4.0); HEMATOCRIT 21.3 % (35.0-46.0); LYMPH % 10.8 % (9.0-44.0); MEAN CELL VOLUME 85.8 FL (80.0-100.0); MEAN CORPUSCULAR HEMOGLOBIN 29.6 PG (27.0-34.0); MEAN CORPUSCULAR HGB CONC 34.5 % (32.0-36.0); MONO % 4.3 % (0.0-8.0); NEUT % 84.2 % (16.0-70.0); PLATELET COUNT 76 TH/MM3 (150-450); RED BLOOD COUNT 2.48 MIL/MM3 (4.00-5.30); WHITE BLOOD COUNT 9.4 TH/MM3 (4.0-11.0)
[2017-09-04 05:06] LABS: HEMO FLAGS AUTO DIFF
[2017-09-04] MEDS: VANCOMYCIN INJ 750 MG in SODIUM CHLOR 0.9% 250 ML INJ 250 ML IV SCH (05:13)
[2017-09-04 05:32] LABS: BICARBONATE 17.5 MEQ/L (21.0-32.0); CALCIUM-PROTEIN CORRECTED 8.1 MG/DL (8.5-10.1); POTASSIUM 3.6 MEQ/L (3.5-5.1)
[2017-09-04 07:44] LABS: BANDS 28 % (0-6); DOHLE BODIES PRESENT (NONE SEEN); METAMYELOCYTES 2 % (0-1); MYELOCYTES 1 % (0-0); NEUTROPHIL # MANUAL DIFF 8.5 TH/MM3 (1.8-7.7); PLATELET ESTIMATE SMEAR LOW (NORMAL); PLATELET MORPHOLOGY NORMAL (NORMAL); POLYS (SEG NEUTROPHILS) 59 % (16-70); SCAN/DIFF FINAL DIFF MANUAL; TOXIC GRANULATION 2+ (NORMAL); WBC DIFF SAMPLE 100
--- NOTE | 2017-09-04 08:44 | HHI.CCPN ---
Subjective Remarks/Hospital Course 27-year-old very pleasant female with history of IV drug abuse, last use Dilaudid 5 days ago, visiting here from [place], presents for evaluation of having myalgias and substernal sharp chest pain which has been constant. She reports fevers as high as 104-105 at home checked orally. She reports today she has also developed generalized abdominal pain, muscle spasms, hemoptysis. She reports a history of asthma with no other significant past medical history. 09/02: The patient was noted to be tachypnea , respiratory rate 40s and shallow , as well as tachycardic and hypotensive phenylephrine infusing at 50 mcgs.the patient was emergently intubated 1 attempt ABGs revealed metabolic and respiratory acidosis with a pH of 7.18 .Possible septic emboli noted on chest x -ray. Multiple bilateral lung masses. Stat CT thorax pending, no angiogram / elevated creatinine. Sodium bicarbonate infusion initiated. 09/03: Diffuse bilateral lung consolidations with destruction - typical of Staph. This looks like tricuspid valve endocarditis. She remains floridly septic and requiring multiple vasopressors to maintain acceptable blood pressure. 09/04: Continued florid sepsis. Very poor nutritional status with prealbumin < 3. Lung destruction apparent on CT scan and ongoing bloody secretions. Objective Vital Signs Date Time Temp Pulse Resp B/P (MAP) Pulse Ox O2 Delivery O2 Flow Rate FiO2 09/04/17 06:00 105 09/04/17 04:00 40 09/04/17 04:00 99.3 19 109/59 (76) 100 09/03/17 19:00 Mechanical Ventilator 09/02/17 07:00 6.00 Intake and Output 09/04/17 09/04/17 09/05/17 08:00 16:00 00:00 Intake Total 3400 ml Output Total 225 ml Balance 3175 ml Result Diagram: 09/04/17 0450 09/04/17 0450 Other Results Microbiology Date/Time Source Procedure Growth Status 09/01/17 17:50 Nasal Aspirate Influenza Types A,B Antigen (TOM) - Final NEGATIVE FOR FLU A AND B ANTIGEN.... Complete 09/01/17 20:30 Urine Catheterized Urine Legionella Antigen - Final PRESUMPTIVE NEGATIVE FOR LEGIONELLA P... Complete 09/01/17 20:30 Urine Catheterized Urine Streptococcus pneumoniae Antigen (M - Final PRESUMPTIVE NEGATIVE FOR STREPTOCOCCU... Complete 09/01/17 20:30 Urine Catheterized Urine Urine Culture - Final NO GROWTH IN 48 HOURS. Complete Laboratory Tests Test 09/04/17 04:21 Blood Gas Puncture Site ART LINE Blood Gas Patient Temperature 98.6 Blood Gas HCO3 17 mmol/L (22-26) Blood Gas Base Excess -8.2 mmol/L (-2-2) Blood Gas Oxygen Saturation 96 % (90-100) Arterial Blood pH 7.34 (7.380-7.420) Arterial Blood Partial Pressure CO2 32 mmHg (38-42) Arterial Blood Partial Pressure O2 119 mmHg (61-120) Arterial Blood Oxygen Content 10.9 Vol % (12.0-20.0) Arterial Blood Carboxyhemoglobin 1.2 % (0-4) Arterial Blood Methemoglobin 0.8 % (0-2) Blood Gas Hemoglobin 7.9 G/DL (12.0-16.0) Oxygen Delivery Device VENTILATOR Blood Gas Ventilator Setting PRVC/AC Blood Gas Inspired Oxygen 40 % Imaging Last Impressions Abdomen/Pelvis CT 09/01/17 1815 Signed Impressions: Service Date/Time: Friday, September 01, 2017 19:37 - CONCLUSION: 1. Multiple prominent areas of consolidation at the lung bases. Several of these have a rounded configuration raising possibility of septic emboli. Diffuse infection could have a similar appearance. 2. Mild proximal spleen. 3. 5.9 center cystic area in the right adnexa likely related to right ovarian cyst. 4. Mild to moderate dilatation of the collecting systems bilaterally. The ureters do not appear distended. Lorenzo Perez MD Chest X-Ray 09/01/17 1642 Signed Impressions: Service Date/Time: Friday, September 01, 2017 17:20 - CONCLUSION: 1. Abnormal examination demonstrating multiple bilateral apparent lung masses. Findings are concerning for septic emboli in this young patient although differential considerations include metastatic disease. There is a CT examination of the chest pending. Bereket Pozo MD Objective Remarks GENERAL: Ill-appearing woman, septic. SKIN: Warm and dry. Multiple punctate lesions from skin popping noted over trunk and extremities. HEAD: Normocephalic. EYES: No scleral icterus. No injection or drainage. NECK: Supple, trachea midline.Orally intubated. CARDIOVASCULAR: Regular rate and rhythm without murmurs, gallops, or rubs. RESPIRATORY: Breath sounds equal bilaterally. Diffuse rhonchi. Acceptable vamshi air movement. GASTROINTESTINAL: Abdomen soft, non-tender, nondistended. Active bowel sounds MUSCULOSKELETAL: No cyanosis, or edema. Tepid, poorly perfused. BACK: Nontender without obvious deformity. NEURO EXAM: Moves 4 limbs, opens eyes. Procedures 09/02-CT angiogram pulmonary 09/02- transthoracic echocardiogram Date of Insertion: Sep 02, 2017 Line: Central Venous Catheter Side: Right Location: Subclavian A/P Assessment and Plan Metabolic Encephalopathy 2/2 sepsis Toxic Encephalopathy- Cocaine, Amphetamines Neuro checks per ICU Protocol F/U MRI brain 01/01 septic emboli Obtain Echo -r/o PFO, vegetations and evaluate function Hemoptysis Acute hypercapnic and hypoxemic respiratory failure - Pulmonary septic emboli - Blood cultures - Broad-spectrum antibiotics - Infectious disease consulted - De-escalate per sensitivity -09/02 intubated 7.5 at 22cm @lip -Obtain sputum culture -Obtain CT chest-unable to do angiogram secondary to elevated creatinine -Versed and fentanyl infusions for ventilator synchrony -Daily sedation vacation Myalgias and fevers Septic shock Metabolic acidosis - Broad-spectrum antibiotics -Obtain stat 2-D echo to rule out endocarditis at the patient with a history of IVDU - Tylenol when necessary for fevers -Follow-up blood , urine and sputum cultures- blood gram-positive bacteremia. Vancomycin, Zosyn initiated -Patient currently on norepinephrine, vasopressin, phenylephrine with maintenance of MAP greater than 65mmHg Acute kidney injury Dehydration -Insert [place] - IV fluid resuscitation - Strict I's and O's - Monitor creatinine and electrolytes IVDU - Monitor for withdrawal - Morphine [place] and Ativan when necessary - Seizure precautions Hyperglycemia critical illness DVT GI prophylaxis - Teds SCDs - Hold pharmacological DVT prophylaxis due to hemoptysis - Pepcid Protein Calorie Malnutrition - Prealbumin < 3 09/04 Critical Care: Left subclavian line Placed left radial art line placed patient emergently intubated. Overall impression: Critically ill woman requiring markedly elevated ventilator settings to oxygenate. Floridly septic with Staph bacteremia and pneumonia. Lung destruction apparent. Doubt she can survive this disease process. Critical care 48 mins Sachin Goodson MD Sep 04, 2017 08:44
[2017-09-04] MEDS: SODIUM CHLORIDE 0.9% FLUSH 10 ML FLUSH IV FLUSH SCH ×2 (09:00→21:40)
[2017-09-04] MEDS: DOCUSATE SODIUM 50 MG/SENNA 8.6 MG TAB PO SCH ×2 (09:01→20:36)
[2017-09-04] MEDS: FAMOTIDINE 20 MG/2 ML VIAL IV PUSH SCH ×2 (09:01→20:36)
[2017-09-04] MEDS: SODIUM CHLOR 0.9% 1000 ML INJ 1,000 ML IV SCH ×2 (09:02→23:05)
[2017-09-04] MEDS: fentaNYL DRIP 250 ML IV PRN (13:50)
[2017-09-04] MEDS: VASOPRESSIN INJ 40 UNITS in DEXTROSE 5% IN WATER 100ML INJ 98 ML IV SCH ×2 (14:25)
--- NOTE | 2017-09-04 14:46 | HHI.IDPN ---
Subjective Subjective Remarks is a 27 y/o CF with history of IV drug abuse, last use Dilaudid 5 days ago, visiting here from [place]. She presents for evaluation of having myalgias and substernal sharp chest pain which has been constant. She reported earlier fevers as high as 104-105 at home checked orally. She reported earlier to others she had also developed generalized abdominal pain, muscle spasms, hemoptysis. She reports a history of asthma with no other significant past medical history. Father in the room and provided history. She was reportedly admitted at [facility] for osteomyelitis of right foot and because she was found doing drugs/smoking in hospital she was reportedly signed off. She then presented to [facility] where she was found to have staph bacteremia and discharged next day or so with oral antibiotics. She then came to [facility] and presented as above to [facility]. Hospital course: patient was conversing earlier today and had worsening AMS and resp status and ended up being intubated. She is currently in IMC on ventilator/ intubated, sedated, UO ok. On multiple pressors high doses. ID consult for evaluation and Mment of Septic Shock, MSSA bacteremia and endocarditis. Overnight events reviewed remains intubated. Secretions thick yellow moderate quantity. UO marginal. Moves all 4 extremities per report. Off sedation but no spontaneous eye opening. Grimaces to pain. Now on Levophed and Vasopressin. Low grade fevers persist. No rash No diarrhea Antibiotics Zosyn IV Ancef IV Vanco IV Lines Line sites with no e.o infection. Past Medical History Staph osteomyelitis Staph bacteremia Allergies: Coded Allergies: neomycin (Verified Allergy, Severe, 09/01/17) Objective . Vital Signs Date Time Temp Pulse Resp B/P (MAP) Pulse Ox O2 Delivery O2 Flow Rate FiO2 09/04/17 14:25 100 112/62 09/04/17 14:00 100 09/04/17 13:49 100 40 09/04/17 12:00 40 09/04/17 12:00 103 09/04/17 12:00 99.9 103 24 108/57 (74) 100 09/04/17 10:00 98 09/04/17 09:49 98 40 09/04/17 08:00 100.0 102 26 104/58 (73) 100 09/04/17 08:00 40 09/04/17 08:00 102 09/04/17 07:00 100 Mechanical Ventilator 40 09/04/17 06:00 105 09/04/17 04:00 106 09/04/17 04:00 40 09/04/17 04:00 99.3 106 19 109/59 (76) 100 09/04/17 03:40 99 40 09/04/17 02:00 104 09/04/17 00:30 100 40 09/04/17 00:00 40 09/04/17 00:00 107 09/04/17 00:00 100.4 107 23 98/50 (66) 100 09/03/17 22:00 111 09/03/17 21:36 100 40 09/03/17 20:37 105 116/57 09/03/17 20:02 100 40 09/03/17 20:00 100.4 102 24 110/48 (68) 100 09/03/17 20:00 102 09/03/17 20:00 40 09/03/17 19:00 100 Mechanical Ventilator 40 09/03/17 18:00 105 09/03/17 18:00 105 115/53 09/03/17 17:15 99 116/57 09/03/17 16:22 100 40 09/03/17 16:00 40 09/03/17 16:00 100.4 99 24 100/57 (71) 100 09/03/17 16:00 99 09/04/17 09/04/17 09/05/17 15:00 23:00 07:00 Intake Total 500 ml Balance 500 ml IV Total 500 ml . Laboratory Tests Test 09/03/17 04:30 09/04/17 04:50 White Blood Count 18.1 TH/MM3 9.4 TH/MM3 Red Blood Count 3.37 MIL/MM3 2.48 MIL/MM3 Hemoglobin 9.7 GM/DL 7.3 GM/DL Hematocrit 28.7 % 21.3 % Mean Corpuscular Volume 85.4 FL 85.8 FL Mean Corpuscular Hemoglobin 28.7 PG 29.6 PG Mean Corpuscular Hemoglobin Concent 33.6 % 34.5 % Red Cell Distribution Width 15.0 % 15.0 % Platelet Count 98 TH/MM3 76 TH/MM3 Mean Platelet Volume 9.0 FL 9.2 FL Neutrophils (%) (Auto) 84.2 % Lymphocytes (%) (Auto) 10.8 % Monocytes (%) (Auto) 4.3 % Eosinophils (%) (Auto) 0.3 % Basophils (%) (Auto) 0.4 % Neutrophils # (Auto) 7.9 TH/MM3 Lymphocytes # (Auto) 1.0 TH/MM3 Monocytes # (Auto) 0.4 TH/MM3 Eosinophils # (Auto) 0.0 TH/MM3 Basophils # (Auto) 0.0 TH/MM3 CBC Comment AUTO DIFF Differential Total Cells Counted 100 Neutrophils % (Manual) 59 % Band Neutrophils % 28 % Lymphocytes % 9 % Monocytes % 1 % Neutrophils # (Manual) 8.5 TH/MM3 Metamyelocytes 2 % Myelocytes 1 % Differential Comment FINAL DIFF MANUAL Toxic Granulation 2+ Dohle Bodies PRESENT Platelet Estimate LOW Platelet Morphology Comment NORMAL Laboratory Tests Test 09/03/17 04:30 09/03/17 11:50 09/04/17 04:50 Blood Urea Nitrogen 40 MG/DL 44 MG/DL Creatinine 1.29 MG/DL 1.21 MG/DL Random Glucose 159 MG/DL 108 MG/DL Total Protein 5.4 GM/DL 5.0 GM/DL Calcium Level 7.1 MG/DL 7.0 MG/DL Phosphorus Level 2.3 MG/DL 2.0 MG/DL Magnesium Level 2.3 MG/DL Sodium Level 144 MEQ/L 149 MEQ/L Potassium Level 2.9 MEQ/L 3.9 MEQ/L 3.6 MEQ/L Chloride Level 110 MEQ/L 120 MEQ/L Carbon Dioxide Level 24.3 MEQ/L 17.5 MEQ/L Anion Gap 10 MEQ/L 12 MEQ/L Estimat Glomerular Filtration Rate 49 ML/MIN 53 ML/MIN Protein Corrected Calcium 8.0 MG/DL 8.1 MG/DL Albumin 1.1 GM/DL Alkaline Phosphatase 112 U/L Aspartate Amino Transf (AST/SGOT) 50 U/L Alanine Aminotransferase (ALT/SGPT) 10 U/L Total Bilirubin 1.0 MG/DL Prealbumin LESS THAN 3 MG/DL Microbiology Date/Time Source Procedure Growth Status 09/03/17 04:30 Blood Peripheral Aerobic Blood Culture - Preliminary Gram Positive Cocci Resulted 09/03/17 04:30 Blood Peripheral Anaerobic Blood Culture - Preliminary NO GROWTH IN 1 DAY Resulted 09/02/17 16:25 Blood Peripheral Aerobic Blood Culture - Final Staphylococcus Aureus Resulted 09/02/17 16:25 Blood Peripheral Anaerobic Blood Culture - Preliminary NO GROWTH IN 2 DAYS Resulted 09/01/17 17:10 Blood Peripheral Aerobic Blood Culture - Final Staphylococcus Aureus Complete 09/01/17 17:10 Anaerobic Blood Culture - Final Staphylococcus Aureus Complete 09/01/17 17:05 Blood Peripheral Aerobic Blood Culture - Final Staphylococcus Aureus Complete 09/01/17 17:05 Anaerobic Blood Culture - Final Staphylococcus Aureus Complete 09/03/17 16:40 Sputum Endotracheal Gram Stain - Final Resulted 09/03/17 16:40 Sputum Culture - Preliminary Staphylococcus Aureus Resulted 09/02/17 15:20 Sputum Endotracheal Gram Stain - Final Complete 09/02/17 15:20 Sputum Culture - Final Staphylococcus Aureus Complete 09/01/17 17:50 Nasal Aspirate Influenza Types A,B Antigen (TOM) - Final NEGATIVE FOR FLU A AND B ANTIGEN.... Complete 09/01/17 20:30 Urine Catheterized Urine Legionella Antigen - Final PRESUMPTIVE NEGATIVE FOR LEGIONELLA P... Complete 09/01/17 20:30 Urine Catheterized Urine Streptococcus pneumoniae Antigen (M - Final PRESUMPTIVE NEGATIVE FOR STREPTOCOCCU... Complete 09/01/17 20:30 Urine Catheterized Urine Urine Culture - Final NO GROWTH IN 48 HOURS. Complete Imaging Last Impressions Chest X-Ray 09/03/17 0600 Signed Impressions: Service Date/Time: August 04:55 - CONCLUSION: Extensive bilateral patchy airspace disease, worsening at the right base. Lorenzo Randolph MD Chest CT 09/02/17 0000 Signed Impressions: Service Date/Time: Saturday, September 02, 2017 10:00 - CONCLUSION: Extensive bilateral infiltrates. Small effusions. Lorenzo Junior MD Brain MRI 09/02/17 0000 Signed Impressions: Service Date/Time: Saturday, September 02, 2017 17:21 - CONCLUSION: Normal examination. Lorenzo Perez MD Abdomen/Pelvis CT [id number]/01/171814 Signed Impressions: Service Date/Time: Friday, September 01, 2017 19:37 - CONCLUSION: 1. Multiple prominent areas of consolidation at the lung bases. Several of these have a rounded configuration raising possibility of septic emboli. Diffuse infection could have a similar appearance. 2. Mild proximal spleen. 3. 5.9 center cystic area in the right adnexa likely related to right ovarian cyst. 4. Mild to moderate dilatation of the collecting systems bilaterally. The ureters do not appear distended. Lorenzo Perez MD Physical Exam GENERAL: Thin built, well-developed patient, in no apparent distress. SKIN: Track pryor noted. HEAD: Atraumatic. Normocephalic. No temporal or scalp tenderness. EYES: Pupils equal round and reactive. Extraocular motions intact. No scleral icterus. No injection or drainage. ENT: Nose without bleeding, purulent drainage or septal hematoma. Throat without erythema, tonsillar hypertrophy or exudate. Uvula midline. Airway patent. NECK: Intubated. CARDIOVASCULAR: Regular rate and rhythm without murmurs, gallops, or rubs. RESPIRATORY: Clear to auscultation. Breath sounds equal bilaterally. No wheezes , rales, or rhonchi. GASTROINTESTINAL: Abdomen soft, non-tender, nondistended. MUSCULOSKELETAL: Extremities without clubbing, cyanosis, or edema. NEUROLOGICAL: Sedated. Moves all 4 extremities. Psych cooperative IV line sites with no e/o infection. Assessment & Plan Remarks Septic Shock present on admission MSSA bacteremia. MSSA Endocarditis. Pulm septic emboli multiple. Acute resp failure: sepsis. Acute renal failure: sepsis related. Acute encephalopathy: sepsis, infection. IVDA Recs: DC Zosyn IV DC Vanco IV no MRSA isolated. Continue Ancef 2 gm IV q8hrs (MSSA endocarditis) Due to persistent bacteremia will get BIN. When Creatinine normalizes will consider repeat imaging with contrast unless clinical condition changes (then may get sooner) MRI brain non contrast negative. Repeat blood cultures. Follow cultures Follow clinically. d/w Jada Mcguire MD Sep 04, 2017 14:45
--- NOTE | 2017-09-04 15:16 | MB ---
cc: ROCAEL PIERRE DATE OF CONSULTATION: 09/04/2017 DATE OF : 1990 REASON FOR CONSULTATION BIN for possible endocarditis in the setting of sepsis and IV drug use. HISTORY OF PRESENT ILLNESS 27-year-old female with a history of IV drug use, admitted with myalgias, fever , chest pain, abdominal pain and hemoptysis. The patient has a significant history for asthma as well. The patient during the admission was intubated for respiratory failure. Chest x-ray revealed possible septic emboli. She remained in florid sepsis requiring multiple vasopressors to maintain adequate blood pressure. A surface transthoracic echocardiogram performed in the hospital showed no evidence of vegetation for which cardiology has been consulted for transesophageal echocardiogram. REVIEW OF SYSTEMS Unobtainable. PAST MEDICAL HISTORY 1. Asthma. 2. IVDU. PAST SURGICAL HISTORY None. MEDICATIONS Home medications are none. ALLERGIES NEOMYCIN. FAMILY HISTORY No significant coronary artery disease. SOCIAL HISTORY Positive for tobacco abuse and illicit drug use. She drinks alcohol socially. PHYSICAL EXAMINATION VITAL SIGNS: Temperature 99.9, respiratory rate 24, heart rate 103, blood pressure 108/57. O2 sat 100%. She is vented. GENERAL: She is sedated, intubated, critically ill. NECK: No JVD. No carotid bruits. HEART: Tachycardic. There is a 2/6 diastolic ejection murmur on the right side. LUNGS: Vented. Poor expiratory effort. ABDOMEN: Benign. EXTREMITIES: Benign. No cyanosis. Pulses throughout. LABORATORY WBC trending down from 18 to 9.4, hemoglobin 7, hematocrit 21, platelet count 76. INR 1. Sodium 149, potassium 3.6, chloride 120, bicarb 17, BUN 44, creatinine 1.2. Toxicology positive for opiates, amphetamines and cocaine. Microbiology: Several bottles of persistent staph aureus in the blood. IMAGING Chest x-ray: Extensive bilateral patchy airspace disease. Chest CT: Extensive bilateral infiltrates and small effusions. CT of the chest shows multiple prominent areas of consolidation at the lung bases. These have a rounded configuration raising the possibility of septic emboli. ECHOCARDIOGRAM Preserved ejection fraction with an EF of 60-65%. No wall motion abnormalities and no evidence of vegetation. ASSESSMENT AND PLAN 27-year-old female with known history of IVDU with persistent sepsis. There is a question of pulmonary emboli in the CT scan. Echocardiogram performed here did not reveal any signs of vegetation. At this point I think it is reasonable to perform a transesophageal echocardiogram to further assess for endocarditis. The risk and benefit of the procedure has been explained to the family members and they agree to proceed. Keep n.p.o. for BIN today. MD AVERY Schafer/DOLORES /2:48 PM /2:57 PM MTDD
[2017-09-04] MEDS ORDERED: ROCURONIUM INJ 50 MG/5 ML VIAL ONE (15:22)
[2017-09-04] MEDS: ceFAZolin 2 GM PREMIX 50 ML IV SCH (16:20)
--- NOTE | 2017-09-04 16:25 | ECHRPT ---
Indication: SEPSIS ENDOCARDITIS CONCLUSIONS Oscillating mass in the tricuspid valve consistent with a vegetation No significant valvulopathies in the Aortic or Mitral valves No wall motion abnormalites Preseved EF BP: / HR: Rhythm: Technical Quality: Medications Complications Proc. Components Francois Chavez MD (Electronically Signed) Final Date:04 September 2017 16:24
[2017-09-05] VITALS (19 sets, daily range): BP systolic 87–134; BP diastolic 44–76; PULSE 85–103; RESP 22–28; TEMP 97–101.3; O2SAT 98–100
[2017-09-05] MEDS: NOREPINEPHRINE INJ 8 MG in SODIUM CHLOR 0.9% 250 ML INJ 246 ML IV PRN (01:26)
[2017-09-05] MEDS: ceFAZolin 2 GM PREMIX 50 ML IV SCH ×3 (01:26→17:24)
[2017-09-05] MEDS: ACETAMINOPHEN 1000 MG/100 ML 100 ML IV PRN ×2 (01:36→14:15)
[2017-09-05] MEDS: MIDAZOLAM 100 MG/100 ML INJ 100 ML IV PRN (01:36)
[2017-09-05] MEDS: CHLORHEXIDINE GLUCONATE 2 % 1 PACK (2 CLOTHS) TOP SCH (04:00)
[2017-09-05] MEDS: RESP: ALBUTEROL 2.5 MG/IPRATROPIUM 0.5 MG NEB (SCH) INH ×4 (04:30→21:59)
[2017-09-05] MEDS: fentaNYL DRIP 250 ML IV PRN ×2 (06:12→20:33)
[2017-09-05 06:35] LABS: ALKALINE PHOSPHATASE 138 U/L (45-117); ALT (GPT) LESS THAN 6 U/L (10-53); ANION GAP 10 MEQ/L (5-15); AST (GOT) 27 U/L (15-37); BLOOD UREA NITROGEN 58 MG/DL (7-18); CALCIUM-PROTEIN CORRECTED 8.1 MG/DL (8.5-10.1); CHLORIDE 120 MEQ/L (98-107); GLOMERULAR FILTRATION RATE 19 ML/MIN (>89); POTASSIUM 4.1 MEQ/L (3.5-5.1); SODIUM (NA) 148 MEQ/L (136-145); TOTAL BILIRUBIN ADULT 0.6 MG/DL (0.2-1.0)
[2017-09-05 06:51] LABS: AUTOMATED NEUTROPHIL # 10.5 TH/MM3 (1.8-7.7); BASOPHIL % 0.4 % (0.0-2.0); EOSINOPHIL # 0.1 TH/MM3 (0-0.4); EOSINOPHIL % 0.7 % (0.0-4.0); LYMPH % 10.5 % (9.0-44.0); LYMPHOCYTE # 1.3 TH/MM3 (1.0-4.8); MEAN CELL VOLUME 86.8 FL (80.0-100.0); MEAN CORPUSCULAR HEMOGLOBIN 28.4 PG (27.0-34.0); MEAN CORPUSCULAR HGB CONC 32.7 % (32.0-36.0); MONO % 2.9 % (0.0-8.0); NEUT % 85.5 % (16.0-70.0); PLATELET COUNT 91 TH/MM3 (150-450); RED BLOOD COUNT 2.33 MIL/MM3 (4.00-5.30); RED CELL DISTRIBUTION WIDTH 15.4 % (11.6-17.2); WHITE BLOOD COUNT 12.2 TH/MM3 (4.0-11.0)
[2017-09-05 07:05] LABS: HEMO FLAGS AUTO DIFF
[2017-09-05 07:07] LABS: HEMATOCRIT 20.2 % (35.0-46.0)
[2017-09-05] MEDS: VASOPRESSIN INJ 40 UNITS in DEXTROSE 5% IN WATER 100ML INJ 98 ML IV SCH ×2 (07:09)
[2017-09-05 07:38] LABS: MAGNESIUM 2.6 MG/DL (1.5-2.5)
[2017-09-05 08:57] LABS: BANDS 35 % (0-6); NEUTROPHIL # MANUAL DIFF 11.6 TH/MM3 (1.8-7.7); PLATELET ESTIMATE SMEAR LOW (NORMAL); PLATELET MORPHOLOGY ENLARGED (NORMAL); POLYS (SEG NEUTROPHILS) 60 % (16-70); WBC DIFF SAMPLE 100
[2017-09-05 08:58] LABS: SCAN/DIFF FINAL DIFF MANUAL
[2017-09-05] MEDS: DOCUSATE SODIUM 50 MG/SENNA 8.6 MG TAB PO SCH ×2 (09:00→19:28)
[2017-09-05] MEDS: SODIUM CHLORIDE 0.9% FLUSH 10 ML FLUSH IV FLUSH SCH ×2 (09:00→20:34)
--- NOTE | 2017-09-05 09:02 | HHI.CCPN ---
Subjective Remarks/Hospital Course 27-year-old very pleasant female with history of IV drug abuse, last use Dilaudid 5 days ago, visiting here from [place], presents for evaluation of having myalgias and substernal sharp chest pain which has been constant. She reports fevers as high as 104-105 at home checked orally. She reports today she has also developed generalized abdominal pain, muscle spasms, hemoptysis. She reports a history of asthma with no other significant past medical history. 09/02: The patient was noted to be tachypnea , respiratory rate 40s and shallow , as well as tachycardic and hypotensive phenylephrine infusing at 50 mcgs.the patient was emergently intubated 1 attempt ABGs revealed metabolic and respiratory acidosis with a pH of 7.18 .Possible septic emboli noted on chest x -ray. Multiple bilateral lung masses. Stat CT thorax pending, no angiogram 2/ 2 elevated creatinine. Sodium bicarbonate infusion initiated. 09/03: Diffuse bilateral lung consolidations with destruction - typical of Staph. This looks like tricuspid valve endocarditis. She remains floridly septic and requiring multiple vasopressors to maintain acceptable blood pressure. 09/04: Continued florid sepsis. Very poor nutritional status with prealbumin < 3. Lung destruction apparent on CT scan and ongoing bloody secretions. 09/05: As suspected, BIN confirms tricuspid valve endocarditis. Bloody sputum reflects lung destruction from Staph pneumonia. Objective Vital Signs Date Time Temp Pulse Resp B/P (MAP) Pulse Ox O2 Delivery O2 Flow Rate FiO2 09/05/17 08:00 98.8 91 28 119/62 (81) 100 09/05/17 07:00 Mechanical Ventilator 40 09/02/17 07:00 6.00 Intake and Output 09/05/17 09/05/17 09/06/17 08:00 16:00 00:00 Intake Total 1450.3 ml Output Total 200 ml Balance 1250.3 ml Result Diagram: 09/05/17 0532 09/05/17 0532 Other Results Microbiology Date/Time Source Procedure Growth Status 09/02/17 15:20 Sputum Endotracheal Gram Stain - Final Complete 09/02/17 15:20 Sputum Culture - Final Staphylococcus Aureus Complete Imaging Last Impressions Abdomen/Pelvis CT 09/01/17 9551 Signed Impressions: Service Date/Time: Friday, September 01, 2017 19:37 - CONCLUSION: 1. Multiple prominent areas of consolidation at the lung bases. Several of these have a rounded configuration raising possibility of septic emboli. Diffuse infection could have a similar appearance. 2. Mild proximal spleen. 3. 5.9 center cystic area in the right adnexa likely related to right ovarian cyst. 4. Mild to moderate dilatation of the collecting systems bilaterally. The ureters do not appear distended. Lorenzo Perez MD Chest X-Ray 09/01/17 1642 Signed Impressions: Service Date/Time: Friday, September 01, 2017 17:20 - CONCLUSION: 1. Abnormal examination demonstrating multiple bilateral apparent lung masses. Findings are concerning for septic emboli in this young patient although differential considerations include metastatic disease. There is a CT examination of the chest pending. Bereket Pozo MD Objective Remarks GENERAL: Ill-appearing woman, septic, flushed. SKIN: Warm and dry. Multiple punctate lesions from skin popping noted over trunk and extremities. HEAD: Normocephalic. EYES: No scleral icterus. No injection or drainage. NECK: Supple, trachea midline.Orally intubated. CARDIOVASCULAR: Regular rate and rhythm without murmurs, gallops, or rubs. RESPIRATORY: Breath sounds equal bilaterally. Diffuse rhonchi. Acceptable vamshi air movement. GASTROINTESTINAL: Abdomen soft, non-tender, nondistended. Few bowel sounds. No guarding. MUSCULOSKELETAL: No cyanosis, or edema. Warm, flushed, well perfused. NEURO EXAM: Cough, gag intact. Withdraws limbs to stimulation. Procedures 09/02-CT angiogram pulmonary 09/02- transthoracic echocardiogram Date of Insertion: Sep 02, 2017 Line: Central Venous Catheter Side: Right Location: Subclavian A/P Assessment and Plan Metabolic Encephalopathy 2/2 sepsis Toxic Encephalopathy- Cocaine, Amphetamines Neuro checks per ICU Protocol F/U MRI brain 2/2 septic emboli Obtain Echo -r/o PFO, vegetations and evaluate function Hemoptysis Acute hypercapnic and hypoxemic respiratory failure - Pulmonary septic emboli - Blood cultures - Broad-spectrum antibiotics -> narrowed to MSSA coverage. - Infectious disease consulted - De-escalate per sensitivity -09/02 intubated 7.5 at 22cm @lip -Obtain sputum culture -Obtain CT chest-unable to do angiogram secondary to elevated creatinine -Versed and fentanyl infusions for ventilator synchrony -Hold sedation for neuro assessment Myalgias and fevers Septic shock Metabolic acidosis - Broad-spectrum antibiotics -Obtain stat 2-D echo to rule out endocarditis at the patient with a history of IVDU - Tylenol when necessary for fevers -Follow-up blood , urine and sputum cultures- blood gram-positive bacteremia. Vancomycin, Zosyn initiated -Patient currently on norepinephrine, vasopressin, phenylephrine with maintenance of MAP greater than 65mmHg Acute kidney injury Dehydration -Insert [place] - IV fluid resuscitation - Strict I's and O's - Monitor creatinine and electrolytes IVDU - Monitor for withdrawal - Morphine [place] and Ativan when necessary - Seizure precautions Hyperglycemia critical illness DVT GI prophylaxis - Teds SCDs - Hold pharmacological DVT prophylaxis due to hemoptysis - Pepcid Protein Calorie Malnutrition - Prealbumin < 3 09/04 Critical Care: Left subclavian line Placed left radial art line placed patient emergently intubated. Overall impression: Critically ill woman requiring markedly elevated ventilator settings to oxygenate. Floridly septic with Staph bacteremia and pneumonia. Lung destruction apparent. Doubt she can survive this disease process. Continues to decline. I spoke at length with her father and sister yesterday. They understand the poor prognosis. Critical care 39 mins Sachin Goodson MD Sep 05, 2017 09:02
[2017-09-05] MEDS: FAMOTIDINE 20 MG/2 ML VIAL IV PUSH SCH ×2 (09:08→20:33)
[2017-09-05] MEDS: SODIUM CHLOR 0.9% 1000 ML INJ 1,000 ML IV SCH ×2 (12:25→23:35)
--- NOTE | 2017-09-05 16:01 | HHI.CCPN ---
Subjective Remarks/Hospital Course 27-year-old very pleasant female with history of IV drug abuse, last use Dilaudid 5 days ago, visiting here from [place], presents for evaluation of having myalgias and substernal sharp chest pain which has been constant. She reports fevers as high as 104-105 at home checked orally. She reports today she has also developed generalized abdominal pain, muscle spasms, hemoptysis. She reports a history of asthma with no other significant past medical history. 09/02: The patient was noted to be tachypnea , respiratory rate 40s and shallow , as well as tachycardic and hypotensive phenylephrine infusing at 50 mcgs.the patient was emergently intubated 1 attempt ABGs revealed metabolic and respiratory acidosis with a pH of 7.18 .Possible septic emboli noted on chest x -ray. Multiple bilateral lung masses. Stat CT thorax pending, no angiogram / elevated creatinine. Sodium bicarbonate infusion initiated. 09/03: Diffuse bilateral lung consolidations with destruction - typical of Staph. This looks like tricuspid valve endocarditis. She remains floridly septic and requiring multiple vasopressors to maintain acceptable blood pressure. 09/04: Continued florid sepsis. Very poor nutritional status with prealbumin < 3. Lung destruction apparent on CT scan and ongoing bloody secretions. 09/05: As suspected, BIN confirms tricuspid valve endocarditis. Bloody sputum reflects lung destruction from Staph pneumonia. 09/05(1555 hours): Patient continues to deteriorate despite maximum vasopressor support and good antibiotic coverage. Hemorrhagic pneumonia persists, typical of Staph infection in lungs. CT scan of chest revealed multiple areas of lung destruction on admission. I have discussed the care with her father and step- mother at the bedside. They appreciate her continued deterioration. They have asked to make her DNR status at this point and assure that she is not in pain. We have all agreed to continue her fentanyl infusion so that she does not cough on the endotracheal tube again like she did last night. Objective Vital Signs Date Time Temp Pulse Resp B/P (MAP) Pulse Ox O2 Delivery O2 Flow Rate FiO2 09/05/17 14:00 95 09/05/17 12:00 40 09/05/17 12:00 99.9 25 124/66 (85) 100 09/05/17 07:00 Mechanical Ventilator 09/02/17 07:00 6.00 Intake and Output 09/05/17 09/05/17 09/06/17 08:00 16:00 00:00 Intake Total 1550.3 ml Output Total 200 ml Balance 1350.3 ml Result Diagram: 09/05/17 0532 09/05/17 0532 Other Results Microbiology Date/Time Source Procedure Growth Status 09/03/17 16:40 Sputum Endotracheal Gram Stain - Final Complete 09/03/17 16:40 Sputum Culture - Final Staphylococcus Aureus Complete Imaging Last Impressions Abdomen/Pelvis CT 09/01/17 1815 Signed Impressions: Service Date/Time: Friday, September 01, 2017 19:37 - CONCLUSION: 1. Multiple prominent areas of consolidation at the lung bases. Several of these have a rounded configuration raising possibility of septic emboli. Diffuse infection could have a similar appearance. 2. Mild proximal spleen. 3. 5.9 center cystic area in the right adnexa likely related to right ovarian cyst. 4. Mild to moderate dilatation of the collecting systems bilaterally. The ureters do not appear distended. Lorenzo Perez MD Chest X-Ray 09/01/17 1642 Signed Impressions: Service Date/Time: Friday, September 01, 2017 17:20 - CONCLUSION: 1. Abnormal examination demonstrating multiple bilateral apparent lung masses. Findings are concerning for septic emboli in this young patient although differential considerations include metastatic disease. There is a CT examination of the chest pending. Bereket Pozo MD Objective Remarks GENERAL: Ill-appearing woman, septic, flushed, hypotensive. SKIN: Warm and dry. Multiple punctate lesions from skin popping noted over trunk and extremities. HEAD: Normocephalic. EYES: No scleral icterus. Moderate injection. NECK: Supple, trachea midline.Orally intubated. CARDIOVASCULAR: Regular rate and rhythm without murmurs, gallops, or rubs. RESPIRATORY: Breath sounds equal bilaterally. Diffuse rhonchi. Acceptable vamshi air movement. Bloody dark secretions. GASTROINTESTINAL: Abdomen soft, non-tender, nondistended. No bowel sounds. No guarding. MUSCULOSKELETAL: No cyanosis, or edema. Tepid. NEURO EXAM: Cough, gag intact. No other response. Procedures 09/02-CT angiogram pulmonary 09/02- transthoracic echocardiogram Date of Insertion: Sep 02, 2017 Line: Central Venous Catheter Side: Right Location: Subclavian A/P Assessment and Plan Metabolic Encephalopathy 2/2 sepsis Toxic Encephalopathy- Cocaine, Amphetamines Neuro checks per ICU Protocol F/U MRI brain 2/2 septic emboli Obtain Echo -> TV Endocarditis. Hemoptysis Acute hypercapnic and hypoxemic respiratory failure - Pulmonary septic emboli - Blood cultures - Broad-spectrum antibiotics -> narrowed to MSSA coverage. - Infectious disease consulted - De-escalate per sensitivity -09/02 intubated 7.5 at 22cm @lip -Obtain sputum culture -Obtain CT chest-unable to do angiogram secondary to elevated creatinine -Versed and fentanyl infusions for ventilator synchrony - Do not hold sedation for neuro assessment per family request. Myalgias and fevers Septic shock Metabolic acidosis - Broad-spectrum antibiotics -Obtain stat 2-D echo to rule out endocarditis at the patient with a history of IVDU - Tylenol when necessary for fevers -Follow-up blood , urine and sputum cultures- blood gram-positive bacteremia. Vancomycin, Zosyn initiated -> narrow per ID. -Patient currently on norepinephrine, vasopressin, phenylephrine with maintenance of MAP greater than 65mmHg Acute kidney injury Dehydration -Insert [place] - IV fluid resuscitation - Strict I's and O's - Monitor creatinine and electrolytes IVDU - Monitor for withdrawal - Morphine [place] and Ativan when necessary - Seizure precautions Hyperglycemia critical illness DVT GI prophylaxis - Teds SCDs - Hold pharmacological DVT prophylaxis due to hemoptysis - Pepcid Protein Calorie Malnutrition - Prealbumin < 3 09/04 Critical Care: Left subclavian line Placed left radial art line placed patient emergently intubated. Overall impression: Critically ill woman requiring markedly elevated ventilator settings to oxygenate. Floridly septic with Staph bacteremia and pneumonia. Lung destruction apparent. Doubt she can survive this disease process. Continues to decline and family has now instituted DNR. I spoke at length with her father and sister today. They understand the poor prognosis. Critical care 55 mins Sachin Goodson MD Sep 05, 2017 16:01
[2017-09-05] MEDS ORDERED: PHARMACY ORDERED LAB ONE (16:45)
[2017-09-05] MEDS ORDERED: NOREPINEPHRINE INJ 8 MG in SODIUM CHLOR 0.9% 250 ML INJ 246 ML IV PRN (17:30)
--- NOTE | 2017-09-05 18:09 | HHI.IDPN ---
Subjective Subjective Remarks is a 27 y/o CF with history of IV drug abuse, last use Dilaudid 5 days ago, visiting here from [place]. She presents for evaluation of having myalgias and substernal sharp chest pain which has been constant. She reported earlier fevers as high as 104-105 at home checked orally. She reported earlier to others she had also developed generalized abdominal pain, muscle spasms, hemoptysis. She reports a history of asthma with no other significant past medical history. Father in the room and provided history. She was reportedly admitted at [facility] for osteomyelitis of right foot and because she was found doing drugs/smoking in hospital she was reportedly signed off. She then presented to [facility] where she was found to have staph bacteremia and discharged next day or so with oral antibiotics. She then came to [facility] and presented as above to [facility]. Hospital course: patient was conversing earlier today and had worsening AMS and resp status and ended up being intubated. She is currently in IMC on ventilator/ intubated, sedated, UO ok. On multiple pressors high doses. ID consult for evaluation and Mment of Septic Shock, MSSA bacteremia and endocarditis. Overnight events reviewed remains intubated. Secretions thick yellow moderate quantity. H/H low ? related to blood in sputum. UO deteriorated. BP dropped again this am. Now on Levophed and Vasopressin. Low grade fevers persist. No rash No diarrhea s/p BIN TV large oscillating mass. Antibiotics Ancef IV Lines Line sites with no e.o infection. Past Medical History Staph osteomyelitis Staph bacteremia Allergies: Coded Allergies: neomycin (Verified Allergy, Severe, 09/01/17) Objective . Vital Signs Date Time Temp Pulse Resp B/P (MAP) Pulse Ox O2 Delivery O2 Flow Rate FiO2 09/05/17 16:00 40 09/05/17 16:00 98.4 98 28 87/44 (58) 100 09/05/17 16:00 98 09/05/17 15:51 100 40 09/05/17 14:00 95 09/05/17 12:00 40 09/05/17 12:00 99.9 93 25 124/66 (85) 100 09/05/17 12:00 93 09/05/17 11:26 100 40 09/05/17 10:00 94 09/05/17 09:09 100 40 09/05/17 08:00 98.8 91 28 119/62 (81) 100 09/05/17 08:00 91 09/05/17 08:00 40 09/05/17 07:09 90 116/63 09/05/17 07:00 100 Mechanical Ventilator 40 09/05/17 06:00 94 09/05/17 04:30 98 40 09/05/17 04:00 40 09/05/17 04:00 98 09/05/17 04:00 99.3 98 22 98/56 (70) 100 09/05/17 02:00 96 09/05/17 01:47 101.3 09/05/17 01:26 102 132/73 09/05/17 00:54 100 40 09/05/17 00:00 40 09/05/17 00:00 99.8 103 22 134/76 (95) 100 09/05/17 00:00 95 09/04/17 22:00 96 09/04/17 20:21 99 40 09/04/17 20:00 98.6 98 19 126/76 (93) 99 09/04/17 20:00 40 09/04/17 20:00 98 09/04/17 19:00 100 Mechanical Ventilator 40 09/05/17 09/05/17 09/06/17 15:00 23:00 07:00 Intake Total 100 ml 260 ml Balance 100 ml 260 ml IV Total 100 ml 260 ml . Laboratory Tests Test 09/04/17 04:50 09/05/17 05:32 White Blood Count 9.4 TH/MM3 12.2 TH/MM3 Red Blood Count 2.48 MIL/MM3 2.33 MIL/MM3 Hemoglobin 7.3 GM/DL 6.6 GM/DL Hematocrit 21.3 % 20.2 % Mean Corpuscular Volume 85.8 FL 86.8 FL Mean Corpuscular Hemoglobin 29.6 PG 28.4 PG Mean Corpuscular Hemoglobin Concent 34.5 % 32.7 % Red Cell Distribution Width 15.0 % 15.4 % Platelet Count 76 TH/MM3 91 TH/MM3 Mean Platelet Volume 9.2 FL 10.6 FL Neutrophils (%) (Auto) 84.2 % 85.5 % Lymphocytes (%) (Auto) 10.8 % 10.5 % Monocytes (%) (Auto) 4.3 % 2.9 % Eosinophils (%) (Auto) 0.3 % 0.7 % Basophils (%) (Auto) 0.4 % 0.4 % Neutrophils # (Auto) 7.9 TH/MM3 10.5 TH/MM3 Lymphocytes # (Auto) 1.0 TH/MM3 1.3 TH/MM3 Monocytes # (Auto) 0.4 TH/MM3 0.4 TH/MM3 Eosinophils # (Auto) 0.0 TH/MM3 0.1 TH/MM3 Basophils # (Auto) 0.0 TH/MM3 0.0 TH/MM3 CBC Comment AUTO DIFF AUTO DIFF Differential Total Cells Counted 100 100 Neutrophils % (Manual) 59 % 60 % Band Neutrophils % 28 % 35 % Lymphocytes % 9 % 5 % Monocytes % 1 % Neutrophils # (Manual) 8.5 TH/MM3 11.6 TH/MM3 Metamyelocytes 2 % Myelocytes 1 % Differential Comment FINAL DIFF MANUAL FINAL DIFF MANUAL Toxic Granulation 2+ Dohle Bodies PRESENT Platelet Estimate LOW LOW Platelet Morphology Comment NORMAL ENLARGED Laboratory Tests Test 09/04/17 04:50 09/05/17 05:32 Blood Urea Nitrogen 44 MG/DL 58 MG/DL Creatinine 1.21 MG/DL 2.88 MG/DL Random Glucose 108 MG/DL 146 MG/DL Total Protein 5.0 GM/DL 5.7 GM/DL Albumin 1.1 GM/DL 1.1 GM/DL Calcium Level 7.0 MG/DL 7.3 MG/DL Alkaline Phosphatase 112 U/L 138 U/L Aspartate Amino Transf (AST/SGOT) 50 U/L 27 U/L Alanine Aminotransferase (ALT/SGPT) 10 U/L LESS THAN 6 U/L Total Bilirubin 1.0 MG/DL 0.6 MG/DL Sodium Level 149 MEQ/L 148 MEQ/L Potassium Level 3.6 MEQ/L 4.1 MEQ/L Chloride Level 120 MEQ/L 120 MEQ/L Carbon Dioxide Level 17.5 MEQ/L 18.0 MEQ/L Anion Gap 12 MEQ/L 10 MEQ/L Estimat Glomerular Filtration Rate 53 ML/MIN 19 ML/MIN Protein Corrected Calcium 8.1 MG/DL 8.1 MG/DL Prealbumin LESS THAN 3 MG/DL Phosphorus Level 5.4 MG/DL Magnesium Level 2.6 MG/DL Microbiology Date/Time Source Procedure Growth Status 09/03/17 04:30 Blood Peripheral Aerobic Blood Culture - Final Staphylococcus Aureus Resulted 09/03/17 04:30 Blood Peripheral Anaerobic Blood Culture - Preliminary NO GROWTH IN 2 DAYS Resulted 09/03/17 16:40 Sputum Endotracheal Gram Stain - Final Complete 09/03/17 16:40 Sputum Culture - Final Staphylococcus Aureus Complete Imaging Last Impressions Chest X-Ray 09/03/17 0600 Signed Impressions: Service Date/Time: August 04:55 - CONCLUSION: Extensive bilateral patchy airspace disease, worsening at the right base. Lorenzo Randolph MD Chest CT 09/02/17 0000 Signed Impressions: Service Date/Time: Saturday, September 02, 2017 10:00 - CONCLUSION: Extensive bilateral infiltrates. Small effusions. Lorenzo Junior MD Brain MRI 09/02/17 0000 Signed Impressions: Service Date/Time: Saturday, September 02, 2017 17:21 - CONCLUSION: Normal examination. Lorenzo Perez MD Abdomen/Pelvis CT 09/01/171814 Signed Impressions: Service Date/Time: Friday, September 01, 2017 19:37 - CONCLUSION: 1. Multiple prominent areas of consolidation at the lung bases. Several of these have a rounded configuration raising possibility of septic emboli. Diffuse infection could have a similar appearance. 2. Mild proximal spleen. 3. 5.9 center cystic area in the right adnexa likely related to right ovarian cyst. 4. Mild to moderate dilatation of the collecting systems bilaterally. The ureters do not appear distended. Lorenzo Perez MD Physical Exam GENERAL: Thin built, well-developed patient, in no apparent distress. SKIN: Track pryor noted. HEAD: Atraumatic. Normocephalic. No temporal or scalp tenderness. EYES: Pupils equal round and reactive. Extraocular motions intact. No scleral icterus. No injection or drainage. ENT: Nose without bleeding, purulent drainage or septal hematoma. Throat without erythema, tonsillar hypertrophy or exudate. Uvula midline. Airway patent. NECK: Intubated. CARDIOVASCULAR: Regular rate and rhythm without murmurs, gallops, or rubs. RESPIRATORY: Clear to auscultation. Breath sounds equal bilaterally. No wheezes , rales, or rhonchi. GASTROINTESTINAL: Abdomen soft, non-tender, nondistended. MUSCULOSKELETAL: Extremities without clubbing, cyanosis, or edema. NEUROLOGICAL: Sedated. Moves all 4 extremities. Psych cooperative IV line sites with no e/o infection. Assessment & Plan Remarks Septic Shock present on admission MSSA bacteremia. MSSA Endocarditis. Pulm septic emboli multiple. Acute resp failure: sepsis. Acute renal failure: sepsis related. Acute encephalopathy: sepsis, infection. IVDA Recs: Continue Ancef 2 gm IV q8hrs (MSSA endocarditis) Cr deteriorated further. UO decreased. BP dropping. back on higher dose pressors. Code status changed to DNR. Repeat blood cultures. Follow cultures Follow clinically. d/w RN and : clinically deteriorating, critical condition, poor prognosis. Jada Zamudio MD Sep 05, 2017 18:09
[2017-09-06] VITALS (16 sets, daily range): BP systolic 89–108; BP diastolic 47–59; PULSE 82–108; RESP 25–30; TEMP 97.6–99.9; O2SAT 99–100
[2017-09-06] MEDS: ceFAZolin 2 GM PREMIX 50 ML IV SCH ×2 (01:00→08:34)
[2017-09-06] MEDS: MIDAZOLAM 100 MG/100 ML INJ 100 ML IV PRN ×2 (02:00→17:40)
[2017-09-06] MEDS: CHLORHEXIDINE GLUCONATE 2 % 1 PACK (2 CLOTHS) TOP SCH (03:40)
[2017-09-06 05:00] LABS: ALT (GPT) LESS THAN 6 U/L (10-53); ANION GAP 10 MEQ/L (5-15); AST (GOT) 21 U/L (15-37); BICARBONATE 16.8 MEQ/L (21.0-32.0); BLOOD UREA NITROGEN 71 MG/DL (7-18); CHLORIDE 121 MEQ/L (98-107); GLOMERULAR FILTRATION RATE 13 ML/MIN (>89); POTASSIUM 4.5 MEQ/L (3.5-5.1); SODIUM (NA) 148 MEQ/L (136-145)
[2017-09-06 05:10] LABS: ALKALINE PHOSPHATASE 140 U/L (45-117); TOTAL BILIRUBIN ADULT 0.3 MG/DL (0.2-1.0)
[2017-09-06 05:16] LABS: AUTOMATED NEUTROPHIL # 12.8 TH/MM3 (1.8-7.7); BASOPHIL % 0.2 % (0.0-2.0); EOSINOPHIL # 0.3 TH/MM3 (0-0.4); EOSINOPHIL % 1.7 % (0.0-4.0); LYMPH % 10.3 % (9.0-44.0); LYMPHOCYTE # 1.5 TH/MM3 (1.0-4.8); MEAN CELL VOLUME 87.4 FL (80.0-100.0); MEAN CORPUSCULAR HEMOGLOBIN 28.6 PG (27.0-34.0); MEAN CORPUSCULAR HGB CONC 32.7 % (32.0-36.0); MONO % 1.7 % (0.0-8.0); NEUT % 86.1 % (16.0-70.0); PLATELET COUNT 121 TH/MM3 (150-450); RED BLOOD COUNT 2.38 MIL/MM3 (4.00-5.30); RED CELL DISTRIBUTION WIDTH 15.5 % (11.6-17.2); WHITE BLOOD COUNT 14.9 TH/MM3 (4.0-11.0)
[2017-09-06 05:20] LABS: HEMATOCRIT 20.8 % (35.0-46.0); HEMO FLAGS DIFF FINAL
[2017-09-06] MEDS: FAMOTIDINE 20 MG/2 ML VIAL IV PUSH SCH ×2 (08:34→21:44)
[2017-09-06] MEDS: SODIUM CHLORIDE 0.9% FLUSH 10 ML FLUSH IV FLUSH SCH ×2 (08:34→21:00)
[2017-09-06] MEDS: DOCUSATE SODIUM 50 MG/SENNA 8.6 MG TAB PO SCH ×2 (08:34→21:44)
--- NOTE | 2017-09-06 09:38 | HHI.CCPN ---
Subjective Remarks/Hospital Course 27-year-old very pleasant female with history of IV drug abuse, last use Dilaudid 5 days ago, visiting here from [place], presents for evaluation of having myalgias and substernal sharp chest pain which has been constant. She reports fevers as high as 104-105 at home checked orally. She reports today she has also developed generalized abdominal pain, muscle spasms, hemoptysis. She reports a history of asthma with no other significant past medical history. 09/02: The patient was noted to be tachypnea , respiratory rate 40s and shallow , as well as tachycardic and hypotensive phenylephrine infusing at 50 mcgs.the patient was emergently intubated 1 attempt ABGs revealed metabolic and respiratory acidosis with a pH of 7.18 .Possible septic emboli noted on chest x -ray. Multiple bilateral lung masses. Stat CT thorax pending, no angiogram 2/ 2 elevated creatinine. Sodium bicarbonate infusion initiated. 09/03: Diffuse bilateral lung consolidations with destruction - typical of Staph. This looks like tricuspid valve endocarditis. She remains floridly septic and requiring multiple vasopressors to maintain acceptable blood pressure. 09/04: Continued florid sepsis. Very poor nutritional status with prealbumin < 3. Lung destruction apparent on CT scan and ongoing bloody secretions. 09/05: As suspected, BIN confirms tricuspid valve endocarditis. Bloody sputum reflects lung destruction from Staph pneumonia. 09/05(1555 hours): Patient continues to deteriorate despite maximum vasopressor support and good antibiotic coverage. Hemorrhagic pneumonia persists, typical of Staph infection in lungs. CT scan of chest revealed multiple areas of lung destruction on admission. I have discussed the care with her father and step- mother at the bedside. They appreciate her continued deterioration. They have asked to make her DNR status at this point and assure that she is not in pain. We have all agreed to continue her fentanyl infusion so that she does not cough on the endotracheal tube again like she did last night. 09/06: Ongoing septic course with continued bloody secretions from lungs. No improvement in hemodynamics. Objective Vital Signs Date Time Temp Pulse Resp B/P (MAP) Pulse Ox O2 Delivery O2 Flow Rate FiO2 09/06/17 08:00 40 09/06/17 08:00 108 09/06/17 08:00 99.1 30 92/52 (65) 100 09/06/17 07:00 Mechanical Ventilator 09/02/17 07:00 6.00 Intake and Output 09/06/17 09/06/17 09/07/17 08:00 16:00 00:00 Intake Total 1709.5 ml Output Total 75 ml Balance 1634.5 ml Result Diagram: 09/06/17 0400 09/06/17 0400 Other Results Microbiology Date/Time Source Procedure Growth Status 09/03/17 16:40 Sputum Endotracheal Gram Stain - Final Complete 09/03/17 16:40 Sputum Culture - Final Staphylococcus Aureus Complete Imaging Last Impressions Abdomen/Pelvis CT 09/01/17 1815 Signed Impressions: Service Date/Time: Friday, September 01, 2017 19:37 - CONCLUSION: 1. Multiple prominent areas of consolidation at the lung bases. Several of these have a rounded configuration raising possibility of septic emboli. Diffuse infection could have a similar appearance. 2. Mild proximal spleen. 3. 5.9 center cystic area in the right adnexa likely related to right ovarian cyst. 4. Mild to moderate dilatation of the collecting systems bilaterally. The ureters do not appear distended. Lorenzo Perez MD Chest X-Ray 09/01/17 1642 Signed Impressions: Service Date/Time: Friday, September 01, 2017 17:20 - CONCLUSION: 1. Abnormal examination demonstrating multiple bilateral apparent lung masses. Findings are concerning for septic emboli in this young patient although differential considerations include metastatic disease. There is a CT examination of the chest pending. Bereket Pozo MD Objective Remarks GENERAL: Ill-appearing woman, septic, flushed, hypotensive. SKIN: Warm and dry. Multiple punctate lesions from skin popping noted over trunk and extremities. HEAD: Normocephalic. EYES: No scleral icterus. Moderate injection. NECK: Supple, trachea midline.Orally intubated. CARDIOVASCULAR: Regular rate and rhythm without murmurs, gallops, or rubs. No JVD. RESPIRATORY: Breath sounds equal bilaterally. Diffuse rhonchi. Acceptable vamshi air movement. Bloody dark secretions. GASTROINTESTINAL: Abdomen soft, non-tender, nondistended. No bowel sounds. No guarding. MUSCULOSKELETAL: No cyanosis, or edema. Tepid. NEURO EXAM: Cough, gag intact. No other response. Procedures 09/02-CT angiogram pulmonary 10/4- transthoracic echocardiogram Date of Insertion: Sep 02, 2017 Line: Central Venous Catheter Side: Right Location: Subclavian A/P Assessment and Plan Metabolic Encephalopathy 2/2 sepsis Toxic Encephalopathy- Cocaine, Amphetamines Neuro checks per ICU Protocol F/U MRI brain 2/2 septic emboli Obtain Echo -> TV Endocarditis. Hemoptysis Acute hypercapnic and hypoxemic respiratory failure - Pulmonary septic emboli - Blood cultures - Broad-spectrum antibiotics -> narrowed to MSSA coverage. - Infectious disease consulted - De-escalate per sensitivity -09/02 intubated 7.5 at 22cm @lip -Obtain sputum culture -Obtain CT chest-unable to do angiogram secondary to elevated creatinine -Versed and fentanyl infusions for ventilator synchrony - Do not hold sedation for neuro assessment per family request. Myalgias and fevers Septic shock Metabolic acidosis - Broad-spectrum antibiotics -Obtain stat 2-D echo to rule out endocarditis at the patient with a history of IVDU - Tylenol when necessary for fevers -Follow-up blood , urine and sputum cultures- blood gram-positive bacteremia. Vancomycin, Zosyn initiated -> narrow per ID. -Patient currently on norepinephrine, vasopressin, phenylephrine with maintenance of MAP greater than 65mmHg Acute kidney injury Dehydration -Insert [place] - IV fluid resuscitation - Strict I's and O's - Monitor creatinine and electrolytes IVDU - Monitor for withdrawal - Morphine [place] and Ativan when necessary - Seizure precautions Hyperglycemia critical illness DVT GI prophylaxis - Teds SCDs - Hold pharmacological DVT prophylaxis due to hemoptysis - Pepcid Protein Calorie Malnutrition - Prealbumin < 3 09/04 Critical Care: Left subclavian line Placed left radial art line placed patient emergently intubated. Overall impression: Critically ill woman requiring markedly elevated ventilator settings to oxygenate. Floridly septic with Staph bacteremia and pneumonia. Lung destruction apparent. Doubt she can survive this disease process. Continues to decline and family has now instituted DNR. I spoke at length with her father and sister again today. They understand the poor prognosis. Critical care 38 mins Sachin Goodson MD Sep 06, 2017 09:38
[2017-09-06] MEDS: fentaNYL DRIP 250 ML IV PRN ×2 (09:45→22:30)
[2017-09-06] MEDS ORDERED: FUROSEMIDE 40 MG/4 ML VIAL IV PUSH ONE (09:45)
[2017-09-06 11:07] LABS: BETA HCG QUANT LESS THAN 1 MIU/ML (0-5)
--- NOTE | 2017-09-06 14:28 | HHI.IDPN ---
Subjective Subjective Remarks is a 27 y/o CF with history of IV drug abuse, last use Dilaudid 5 days ago, visiting here from [place]. She presents for evaluation of having myalgias and substernal sharp chest pain which has been constant. She reported earlier fevers as high as 104-105 at home checked orally. She reported earlier to others she had also developed generalized abdominal pain, muscle spasms, hemoptysis. She reports a history of asthma with no other significant past medical history. Father in the room and provided history. She was reportedly admitted at [facility] for osteomyelitis of right foot and because she was found doing drugs/smoking in hospital she was reportedly signed off. She then presented to [facility] where she was found to have staph bacteremia and discharged next day or so with oral antibiotics. She then came to [facility] and presented as above to [facility]. Hospital course: patient was conversing earlier today and had worsening AMS and resp status and ended up being intubated. She is currently in IMC on ventilator/ intubated, sedated, UO ok. On multiple pressors high doses. ID consult for evaluation and Mment of Septic Shock, MSSA bacteremia and endocarditis. Overnight events reviewed remains intubated. Secretions thick yellow moderate quantity. H/H low likely related to blood in sputum. UO deteriorated. Low grade fevers persist. No rash No diarrhea s/p BIN TV large oscillating mass. Antibiotics Ancef IV Lines Line sites with no e.o infection. Past Medical History Staph osteomyelitis Staph bacteremia Allergies: Coded Allergies: neomycin (Verified Allergy, Severe, 09/01/17) Objective . Vital Signs Date Time Temp Pulse Resp B/P (MAP) Pulse Ox O2 Delivery O2 Flow Rate FiO2 09/06/17 14:00 103 09/06/17 12:00 99.3 97 29 93/47 (62) 100 09/06/17 12:00 100 09/06/17 12:00 40 09/06/17 11:38 100 40 09/06/17 10:00 95 09/06/17 08:00 40 09/06/17 08:00 108 09/06/17 08:00 99.1 98 30 92/52 (65) 100 09/06/17 07:00 100 Mechanical Ventilator 40 09/06/17 06:00 82 09/06/17 04:00 99.7 88 30 108/56 (73) 99 09/06/17 04:00 40 09/06/17 04:00 88 09/06/17 02:00 89 09/06/17 01:15 100 40 09/06/17 00:00 88 09/06/17 00:00 40 09/06/17 00:00 98.1 88 28 104/53 (70) 100 09/05/17 22:00 85 09/05/17 21:59 100 40 09/05/17 20:00 88 09/05/17 20:00 40 09/05/17 20:00 97.0 91 28 103/53 (70) 100 09/05/17 19:00 100 Mechanical Ventilator 40 09/05/17 18:59 98 90/45 09/05/17 18:00 96 09/05/17 16:00 40 09/05/17 16:00 98.4 98 28 87/44 (58) 100 09/05/17 16:00 98 09/05/17 15:51 100 40 09/06/17 09/06/17 09/07/17 15:00 23:00 07:00 Intake Total 981 ml Balance 981 ml IV Total 981 ml . Laboratory Tests Test 09/05/17 05:32 09/06/17 04:00 White Blood Count 12.2 TH/MM3 14.9 TH/MM3 Red Blood Count 2.33 MIL/MM3 2.38 MIL/MM3 Hemoglobin 6.6 GM/DL 6.8 GM/DL Hematocrit 20.2 % 20.8 % Mean Corpuscular Volume 86.8 FL 87.4 FL Mean Corpuscular Hemoglobin 28.4 PG 28.6 PG Mean Corpuscular Hemoglobin Concent 32.7 % 32.7 % Red Cell Distribution Width 15.4 % 15.5 % Platelet Count 91 TH/MM3 121 TH/MM3 Mean Platelet Volume 10.6 FL 10.5 FL Neutrophils (%) (Auto) 85.5 % 86.1 % Lymphocytes (%) (Auto) 10.5 % 10.3 % Monocytes (%) (Auto) 2.9 % 1.7 % Eosinophils (%) (Auto) 0.7 % 1.7 % Basophils (%) (Auto) 0.4 % 0.2 % Neutrophils # (Auto) 10.5 TH/MM3 12.8 TH/MM3 Lymphocytes # (Auto) 1.3 TH/MM3 1.5 TH/MM3 Monocytes # (Auto) 0.4 TH/MM3 0.3 TH/MM3 Eosinophils # (Auto) 0.1 TH/MM3 0.3 TH/MM3 Basophils # (Auto) 0.0 TH/MM3 0.0 TH/MM3 CBC Comment AUTO DIFF DIFF FINAL Differential Total Cells Counted 100 Neutrophils % (Manual) 60 % Band Neutrophils % 35 % Lymphocytes % 5 % Neutrophils # (Manual) 11.6 TH/MM3 Differential Comment FINAL DIFF MANUAL Platelet Estimate LOW Platelet Morphology Comment ENLARGED Laboratory Tests Test 09/05/17 05:32 09/06/17 04:00 09/06/17 10:15 Blood Urea Nitrogen 58 MG/DL 71 MG/DL Creatinine 2.88 MG/DL 4.22 MG/DL Random Glucose 146 MG/DL 106 MG/DL Total Protein 5.7 GM/DL 6.0 GM/DL Albumin 1.1 GM/DL 1.0 GM/DL Calcium Level 7.3 MG/DL 7.4 MG/DL Alkaline Phosphatase 138 U/L 140 U/L Aspartate Amino Transf (AST/SGOT) 27 U/L 21 U/L Alanine Aminotransferase (ALT/SGPT) LESS THAN 6 U/L LESS THAN 6 U/L Total Bilirubin 0.6 MG/DL 0.3 MG/DL Sodium Level 148 MEQ/L 148 MEQ/L Potassium Level 4.1 MEQ/L 4.5 MEQ/L Chloride Level 120 MEQ/L 121 MEQ/L Carbon Dioxide Level 18.0 MEQ/L 16.8 MEQ/L Anion Gap 10 MEQ/L 10 MEQ/L Estimat Glomerular Filtration Rate 19 ML/MIN 13 ML/MIN Protein Corrected Calcium 8.1 MG/DL 8.0 MG/DL Phosphorus Level 5.4 MG/DL Magnesium Level 2.6 MG/DL Lactic Acid Level 2.3 mmol/L Human Chorionic Gonadotropin, Quant LESS THAN 1 MIU/ML Microbiology Date/Time Source Procedure Growth Status 09/03/17 16:40 Sputum Endotracheal Gram Stain - Final Complete 09/03/17 16:40 Sputum Culture - Final Staphylococcus Aureus Complete Imaging Last Impressions Chest X-Ray 09/03/17 0600 Signed Impressions: Service Date/Time: August 04:55 - CONCLUSION: Extensive bilateral patchy airspace disease, worsening at the right base. Lorenzo Randolph MD Chest CT 09/02/17 0000 Signed Impressions: Service Date/Time: Saturday, September 02, 2017 10:00 - CONCLUSION: Extensive bilateral infiltrates. Small effusions. Lorenzo Junior MD Brain MRI 09/02/17 0000 Signed Impressions: Service Date/Time: Saturday, September 02, 2017 17:21 - CONCLUSION: Normal examination. Loernzo Perez MD Abdomen/Pelvis CT 09/01/171814 Signed Impressions: Service Date/Time: Friday, September 01, 2017 19:37 - CONCLUSION: 1. Multiple prominent areas of consolidation at the lung bases. Several of these have a rounded configuration raising possibility of septic emboli. Diffuse infection could have a similar appearance. 2. Mild proximal spleen. 3. 5.9 center cystic area in the right adnexa likely related to right ovarian cyst. 4. Mild to moderate dilatation of the collecting systems bilaterally. The ureters do not appear distended. Lorenzo Perez MD Physical Exam GENERAL: Thin built, well-developed patient, in no apparent distress. SKIN: Track pryor noted. HEAD: Atraumatic. Normocephalic. No temporal or scalp tenderness. EYES: Pupils equal round and reactive. Extraocular motions intact. No scleral icterus. No injection or drainage. ENT: Nose without bleeding, purulent drainage or septal hematoma. Throat without erythema, tonsillar hypertrophy or exudate. Uvula midline. Airway patent. NECK: Intubated. CARDIOVASCULAR: Regular rate and rhythm without murmurs, gallops, or rubs. RESPIRATORY: Clear to auscultation. Breath sounds equal bilaterally but decreased in bases. GASTROINTESTINAL: Abdomen soft, non-tender, nondistended. MUSCULOSKELETAL: Extremities without clubbing, cyanosis, or edema. NEUROLOGICAL: Sedated. Moves all 4 extremities. Psych cooperative IV line sites with no e/o infection. Assessment & Plan Remarks Septic Shock present on admission MSSA bacteremia. MSSA Endocarditis. Pulm septic emboli multiple. Acute resp failure: sepsis. Acute renal failure: sepsis related. Acute encephalopathy: sepsis, infection. IVDA Recs: Continue Ancef 2 gm IV q8hrs (MSSA endocarditis) Cr deteriorated further. UO decreased. Code status changed to DNR. Repeat blood cultures. Follow cultures Follow clinically. d/w RN and : clinically deteriorating, critical condition, poor prognosis. Await Palliative care input in am. Jada Zamudio MD Sep 06, 2017 14:28
[2017-09-07] VITALS (16 sets, daily range): BP systolic 93–113; BP diastolic 44–63; PULSE 94–103; RESP 25–31; TEMP 98.2–99.1; O2SAT 95–100
[2017-09-07] MEDS: CHLORHEXIDINE GLUCONATE 2 % 1 PACK (2 CLOTHS) TOP SCH (04:00)
--- NOTE | 2017-09-07 06:07 | RADRPT ---
EXAM DATE/TIME: 09/07/2017 04:41 [place] COMPARISON: CHEST SINGLE AP, September 03, 2017, 4:55. INDICATIONS : Evaluate for pnuemonia MEDICAL HISTORY : None. SURGICAL HISTORY : None. ENCOUNTER: Subsequent ACUITY: 3 days PAIN SCORE: Non-responsive. LOCATION: Bilateral chest FINDINGS: Endotracheal tube tip is 2-3 cm above the ciera. Left subclavian central line and nasogastric tube a re stable. There is persistent diffuse bilateral parenchymal opacity most confluent in the bases with apparent developing cavitation. Visualized cardiac contours are grossly stable. CONCLUSION: Bilateral infiltrates showing signs of cavitation. Lorenzo Junior MD on September 07, 2017 at 6:05 Board Certified Radiologist. This report was verified electronically.
--- NOTE | 2017-09-07 08:12 | HHI.CCPN ---
Subjective Remarks/Hospital Course 27-year-old very pleasant female with history of IV drug abuse, last use Dilaudid 5 days ago, visiting here from [place], presents for evaluation of having myalgias and substernal sharp chest pain which has been constant. She reports fevers as high as 104-105 at home checked orally. She reports today she has also developed generalized abdominal pain, muscle spasms, hemoptysis. She reports a history of asthma with no other significant past medical history. 09/02: The patient was noted to be tachypnea , respiratory rate 40s and shallow , as well as tachycardic and hypotensive phenylephrine infusing at 50 mcgs.the patient was emergently intubated 1 attempt ABGs revealed metabolic and respiratory acidosis with a pH of 7.18 .Possible septic emboli noted on chest x -ray. Multiple bilateral lung masses. Stat CT thorax pending, no angiogram / elevated creatinine. Sodium bicarbonate infusion initiated. 09/03: Diffuse bilateral lung consolidations with destruction - typical of Staph. This looks like tricuspid valve endocarditis. She remains floridly septic and requiring multiple vasopressors to maintain acceptable blood pressure. 09/04: Continued florid sepsis. Very poor nutritional status with prealbumin < 3. Lung destruction apparent on CT scan and ongoing bloody secretions. 09/05: As suspected, BIN confirms tricuspid valve endocarditis. Bloody sputum reflects lung destruction from Staph pneumonia. 09/05(1555 hours): Patient continues to deteriorate despite maximum vasopressor support and good antibiotic coverage. Hemorrhagic pneumonia persists, typical of Staph infection in lungs. CT scan of chest revealed multiple areas of lung destruction on admission. I have discussed the care with her father and step- mother at the bedside. They appreciate her continued deterioration. They have asked to make her DNR status at this point and assure that she is not in pain. We have all agreed to continue her fentanyl infusion so that she does not cough on the endotracheal tube again like she did last night. 09/06: Ongoing septic course with continued bloody secretions from lungs. No improvement in hemodynamics. 09/07: Continued lung destruction reflected by bloody sputum and CXR. Anuric now. Multisystem organ failure has developed; prognosis grave. Objective Vital Signs Date Time Temp Pulse Resp B/P (MAP) Pulse Ox O2 Delivery O2 Flow Rate FiO2 09/07/17 07:52 100 40 09/07/17 06:00 96 09/07/17 04:00 98.4 29 95/44 (61) 09/06/17 19:00 Mechanical Ventilator 6.00 Intake and Output 09/07/17 09/07/17 09/08/17 08:00 16:00 00:00 Intake Total 796.3 ml Output Total 10 ml Balance 786.3 ml Result Diagram: 09/06/17 0400 09/06/17 0400 Imaging Last Impressions Abdomen/Pelvis CT 09/01/17 1815 Signed Impressions: Service Date/Time: Friday, September 01, 2017 19:37 - CONCLUSION: 1. Multiple prominent areas of consolidation at the lung bases. Several of these have a rounded configuration raising possibility of septic emboli. Diffuse infection could have a similar appearance. 2. Mild proximal spleen. 3. 5.9 center cystic area in the right adnexa likely related to right ovarian cyst. 4. Mild to moderate dilatation of the collecting systems bilaterally. The ureters do not appear distended. Lorenzo Perez MD Chest X-Ray 09/01/17 1642 Signed Impressions: Service Date/Time: Friday, September 01, 2017 17:20 - CONCLUSION: 1. Abnormal examination demonstrating multiple bilateral apparent lung masses. Findings are concerning for septic emboli in this young patient although differential considerations include metastatic disease. There is a CT examination of the chest pending. Bereket Pozo MD Objective Remarks GENERAL: Ill-appearing woman, septic, flushed, hypotensive. SKIN: Warm and dry. Multiple punctate lesions over trunk and extremities. HEAD: Normocephalic. EYES: No scleral icterus. Moderate injection. NECK: Supple, trachea midline.Orally intubated. CARDIOVASCULAR: Regular rate and rhythm without murmurs, gallops, or rubs. No JVD. RESPIRATORY: Breath sounds equal bilaterally. Diffuse rhonchi. Acceptable vamshi air movement. Bloody dark secretions. GASTROINTESTINAL: Abdomen soft, non-tender, nondistended. No bowel sounds. No guarding. MUSCULOSKELETAL: No cyanosis. 1+ edema. Tepid. NEURO EXAM: Cough, gag intact. No other response. Procedures 09/02-CT angiogram pulmonary 09/02- transthoracic echocardiogram Date of Insertion: Sep 02, 2017 Line: Central Venous Catheter Side: Right Location: Subclavian A/P Assessment and Plan Metabolic Encephalopathy 2/2 sepsis Toxic Encephalopathy- Cocaine, Amphetamines Neuro checks per ICU Protocol F/U MRI brain 2/2 septic emboli Obtain Echo -> TV Endocarditis. Hemoptysis Acute hypercapnic and hypoxemic respiratory failure - Pulmonary septic emboli - Blood cultures - Broad-spectrum antibiotics -> narrowed to MSSA coverage. - Infectious disease consulted - De-escalate per sensitivity -09/02 intubated 7.5 at 22cm @lip -Obtain sputum culture -Obtain CT chest-unable to do angiogram secondary to elevated creatinine -Versed and fentanyl infusions for ventilator synchrony - Do not hold sedation for neuro assessment per family request. Myalgias and fevers Septic shock Metabolic acidosis - Broad-spectrum antibiotics -Obtain stat 2-D echo to rule out endocarditis at the patient with a history of IVDU - Tylenol when necessary for fevers -Follow-up blood , urine and sputum cultures- blood gram-positive bacteremia. Vancomycin, Zosyn initiated -> narrow per ID. -Patient currently on norepinephrine, vasopressin, phenylephrine with maintenance of MAP greater than 65mmHg Acute kidney injury Dehydration -Insert [place] - IV fluid resuscitation - Strict I's and O's - Monitor creatinine and electrolytes - Anuric 09/07. Likely ATN. IVDU - Monitor for withdrawal - Morphine [place] and Ativan when necessary - Seizure precautions Hyperglycemia critical illness DVT GI prophylaxis - Teds SCDs - Hold pharmacological DVT prophylaxis due to hemoptysis - Pepcid Protein Calorie Malnutrition - Prealbumin < 3 09/04 Critical Care: Left subclavian line Placed left radial art line placed patient emergently intubated. Overall impression: Critically ill woman requiring markedly elevated ventilator settings to oxygenate. Floridly septic with Staph bacteremia and pneumonia. Lung destruction apparent. Doubt she can survive this disease process. Continues to decline and family has now instituted DNR. I spoke at length with her father and sister again today. They understand the poor prognosis. Critical care 39 mins Sachin Goodson MD Sep 07, 2017 08:12
[2017-09-07] MEDS: LORazepam 2 MG/ML VIAL IV PUSH PRN (08:58)
[2017-09-07] MEDS: SODIUM CHLORIDE 0.9% FLUSH 10 ML FLUSH IV FLUSH SCH ×2 (09:01→21:30)
[2017-09-07] MEDS: FAMOTIDINE 20 MG/2 ML VIAL IV PUSH SCH ×2 (09:03→21:29)
[2017-09-07 09:04] LABS: BLOOD GAS BASE EXCESS -11.3 mmol/L (-2-2); BLOOD GAS CARBOXYHEMOGLOBIN 1.7 % (0-4); BLOOD GAS HCO3 14 mmol/L (22-26); BLOOD GAS METHEMOGLOBIN 0.5 % (0-2); BLOOD GAS O2 HGB SATURATION 95 % (90-100); BLOOD GAS OXYGEN CONTENT 11.8 Vol % (12.0-20.0); BLOOD GAS PCO2 33 mmHg (38-42); BLOOD GAS PO2 101 mmHg (61-120); BLOOD GAS TOTAL HGB 8.8 G/DL (12.0-16.0); CRITICAL VALUE YES; OXYGEN DEVICE VENTILATOR; TEMP CORR TO 98.6
[2017-09-07] MEDS: DOCUSATE SODIUM 50 MG/SENNA 8.6 MG TAB PO SCH ×2 (09:04→21:29)
[2017-09-07 09:05] LABS: DRAW SITE ART LINE; FIO2 40 %; STAT YES
[2017-09-07 09:30] LABS: AUTOMATED NEUTROPHIL # 8.3 TH/MM3 (1.8-7.7); BASOPHIL # 0.1 TH/MM3 (0-0.2); BASOPHIL % 0.7 % (0.0-2.0); EOSINOPHIL # 0.2 TH/MM3 (0-0.4); EOSINOPHIL % 2.5 % (0.0-4.0); LYMPH % 10.3 % (9.0-44.0); MEAN CELL VOLUME 87.7 FL (80.0-100.0); MEAN CORPUSCULAR HEMOGLOBIN 28.9 PG (27.0-34.0); MEAN CORPUSCULAR HGB CONC 32.9 % (32.0-36.0); MONO % 2.4 % (0.0-8.0); NEUT % 84.1 % (16.0-70.0); PLATELET COUNT 117 TH/MM3 (150-450); RED BLOOD COUNT 2.09 MIL/MM3 (4.00-5.30); RED CELL DISTRIBUTION WIDTH 15.7 % (11.6-17.2); WHITE BLOOD COUNT 9.9 TH/MM3 (4.0-11.0)
[2017-09-07 09:35] LABS: HEMO FLAGS AUTO DIFF
[2017-09-07 09:37] LABS: HEMATOCRIT 18.3 % (35.0-46.0)
[2017-09-07 10:42] LABS: SCAN/DIFF AUTO DIFF CONFIRMED
[2017-09-07] MEDS: fentaNYL DRIP 250 ML IV PRN (11:05)
--- NOTE | 2017-09-07 12:44 | HHI.IDPN ---
Subjective Subjective Remarks is a 27 y/o CF with history of IV drug abuse, last use Dilaudid 5 days ago, visiting here from [place]. She presents for evaluation of having myalgias and substernal sharp chest pain which has been constant. She reported earlier fevers as high as 104-105 at home checked orally. She reported earlier to others she had also developed generalized abdominal pain, muscle spasms, hemoptysis. She reports a history of asthma with no other significant past medical history. Father in the room and provided history. She was reportedly admitted at [facility] for osteomyelitis of right foot and because she was found doing drugs/smoking in hospital she was reportedly signed off. She then presented to [facility] where she was found to have staph bacteremia and discharged next day or so with oral antibiotics. She then came to [facility] and presented as above to [facility]. Hospital course: patient was conversing earlier today and had worsening AMS and resp status and ended up being intubated. She is currently in IMC on ventilator/ intubated, sedated, UO ok. On multiple pressors high doses. ID consult for evaluation and Mment of Septic Shock, MSSA bacteremia and endocarditis. Overnight events reviewed remains intubated. Secretions thick yellow moderate quantity. WBC normal. H/H 6.0 low likely related to blood in sputum. UO deteriorated. hypotensive not on pressors. No fevers No rash No diarrhea s/p BIN TV large oscillating mass. Antibiotics Ancef IV Lines Line sites with no e.o infection. Past Medical History Staph osteomyelitis Staph bacteremia Allergies: Coded Allergies: neomycin (Verified Allergy, Severe, 09/01/17) Objective . Vital Signs Date Time Temp Pulse Resp B/P (MAP) Pulse Ox O2 Delivery O2 Flow Rate FiO2 09/07/17 12:00 98.6 103 30 95/54 (68) 100 09/07/17 08:00 99.1 94 31 109/49 (69) 100 09/07/17 07:52 100 40 09/07/17 07:00 100 Mechanical Ventilator 40 09/07/17 06:00 96 09/07/17 04:57 100 40 09/07/17 04:00 40 09/07/17 04:00 98.4 95 29 95/44 (61) 100 09/07/17 04:00 95 10/9/17 02:00 95 09/07/17 00:00 98.4 98 28 93/63 (73) 100 09/07/17 00:00 98 09/07/17 00:00 40 09/06/17 22:51 100 40 09/06/17 22:00 84 09/06/17 20:00 40 09/06/17 20:00 97.6 103 25 104/59 (74) 100 09/06/17 20:00 99 09/06/17 19:00 100 Mechanical Ventilator 6.00 40 09/06/17 18:00 103 09/06/17 16:09 100 40 09/06/17 16:00 98 09/06/17 16:00 40 09/06/17 16:00 99.9 100 25 89/47 (61) 100 09/06/17 14:00 103 09/07/17 09/07/17 09/08/17 15:00 23:00 07:00 Intake Total 70 ml Output Total 370.0 ml Balance -300.0 ml Other 70 ml Gastric Drainage Total 185 ml Tube Feeding Residual Discard 185.0 ml # Bowel Movements 1 . Laboratory Tests Test 09/06/17 04:00 09/07/17 09:10 White Blood Count 14.9 TH/MM3 9.9 TH/MM3 Red Blood Count 2.38 MIL/MM3 2.09 MIL/MM3 Hemoglobin 6.8 GM/DL 6.0 GM/DL Hematocrit 20.8 % 18.3 % Mean Corpuscular Volume 87.4 FL 87.7 FL Mean Corpuscular Hemoglobin 28.6 PG 28.9 PG Mean Corpuscular Hemoglobin Concent 32.7 % 32.9 % Red Cell Distribution Width 15.5 % 15.7 % Platelet Count 121 TH/MM3 117 TH/MM3 Mean Platelet Volume 10.5 FL 10.0 FL Neutrophils (%) (Auto) 86.1 % 84.1 % Lymphocytes (%) (Auto) 10.3 % 10.3 % Monocytes (%) (Auto) 1.7 % 2.4 % Eosinophils (%) (Auto) 1.7 % 2.5 % Basophils (%) (Auto) 0.2 % 0.7 % Neutrophils # (Auto) 12.8 TH/MM3 8.3 TH/MM3 Lymphocytes # (Auto) 1.5 TH/MM3 1.0 TH/MM3 Monocytes # (Auto) 0.3 TH/MM3 0.2 TH/MM3 Eosinophils # (Auto) 0.3 TH/MM3 0.2 TH/MM3 Basophils # (Auto) 0.0 TH/MM3 0.1 TH/MM3 CBC Comment DIFF FINAL AUTO DIFF Differential Comment AUTO DIFF CONFIRMED Laboratory Tests Test 09/06/17 04:00 09/06/17 10:15 Blood Urea Nitrogen 71 MG/DL Creatinine 4.22 MG/DL Random Glucose 106 MG/DL Total Protein 6.0 GM/DL Albumin 1.0 GM/DL Calcium Level 7.4 MG/DL Alkaline Phosphatase 140 U/L Aspartate Amino Transf (AST/SGOT) 21 U/L Alanine Aminotransferase (ALT/SGPT) LESS THAN 6 U/L Total Bilirubin 0.3 MG/DL Sodium Level 148 MEQ/L Potassium Level 4.5 MEQ/L Chloride Level 121 MEQ/L Carbon Dioxide Level 16.8 MEQ/L Anion Gap 10 MEQ/L Estimat Glomerular Filtration Rate 13 ML/MIN Lactic Acid Level 2.3 mmol/L Protein Corrected Calcium 8.0 MG/DL Human Chorionic Gonadotropin, Quant LESS THAN 1 MIU/ML Imaging Last Impressions Chest X-Ray 09/03/17 0600 Signed Impressions: Service Date/Time: August 04:55 - CONCLUSION: Extensive bilateral patchy airspace disease, worsening at the right base. Lorenzo Randolph MD Chest CT 09/02/17 0000 Signed Impressions: Service Date/Time: Saturday, September 02, 2017 10:00 - CONCLUSION: Extensive bilateral infiltrates. Small effusions. Lorenzo Junior MD Brain MRI 09/02/17 0000 Signed Impressions: Service Date/Time: Saturday, September 02, 2017 17:21 - CONCLUSION: Normal examination. Lorenzo Perez MD Abdomen/Pelvis CT 09/01/175 Signed Impressions: Service Date/Time: Friday, September 01, 2017 19:37 - CONCLUSION: 1. Multiple prominent areas of consolidation at the lung bases. Several of these have a rounded configuration raising possibility of septic emboli. Diffuse infection could have a similar appearance. 2. Mild proximal spleen. 3. 5.9 center cystic area in the right adnexa likely related to right ovarian cyst. 4. Mild to moderate dilatation of the collecting systems bilaterally. The ureters do not appear distended. Lorenzo Perez MD Physical Exam GENERAL: Thin built, well-developed patient, in no apparent distress. SKIN: Track pryor noted. HEAD: Atraumatic. Normocephalic. No temporal or scalp tenderness. EYES: Pupils equal round and reactive. Extraocular motions intact. No scleral icterus. No injection or drainage. ENT: Nose without bleeding, purulent drainage or septal hematoma. Throat without erythema, tonsillar hypertrophy or exudate. Uvula midline. Airway patent. NECK: Intubated. CARDIOVASCULAR: systolic murmur. RESPIRATORY: Clear to auscultation. Breath sounds equal bilaterally but decreased in bases. GASTROINTESTINAL: Abdomen soft, non-tender, distended. MUSCULOSKELETAL: Extremities without clubbing, cyanosis. Anasarca with pedal edema 4 Plus. NEUROLOGICAL: Sedated. Psych cooperative IV line sites with no e/o infection. Assessment & Plan Remarks Septic Shock present on admission MSSA bacteremia. MSSA Endocarditis. Pulm septic emboli multiple. Acute resp failure: sepsis. Acute renal failure: sepsis related. Acute encephalopathy: sepsis, infection. IVDA Recs: Continue Ancef 2 gm IV q8hrs (MSSA endocarditis) Cr deteriorated further. UO decreased. Code status changed to DNR. Repeat blood cultures. Follow cultures Follow clinically. d/w Jada Mcguire MD Sep 07, 2017 12:44
[2017-09-07] MEDS: MIDAZOLAM 100 MG/100 ML INJ 100 ML IV PRN (13:02)
--- NOTE | 2017-09-07 16:15 | PD.CONS ---
Consult Service Palliative Care Consult Requested By Dr. Goodson Primary Care Physician No Primary Care Physician Reason for Consultation a. To assist with evaluation and management of symptoms including:pain b. To assist medical decision maker(s) with: better understanding of current medical conditions; weighing benefits/burdens of medical treatment options; making medical treatment decisions. HPI History of Present Illness She is a 27-year-old with past medical history significant for IV drug use. Patient reportedly was admitted to [facility] for osteomyelitis of the right foot but because she was found during drugs as flash smoke in the hospital she was reportedly signed off. Then presented to [facility] where she was found to have staph bacteremia and discharge in next day with oral antibiotics. Patient was visiting in the [facility] area and presented to the hospital for evaluation of myalgias, substernal sharp chest pain which are constant and fevers. There is also associated hemoptysis In the ER on 09/01/2017 * WBC is 15.7, H&H 12.3 and 35.3, platelet is 61 * Sodium is 126, potassium 3.5, chloride is 89, bicarbonates 20.3, BUN 67, creatinine 2.68 * Troponin is 0.02. Albumin is 2.5 * PT is 10.8, INR is 1.0, PTT 32.0 * Urine tox screen is positive for cocaine, amphetamines, opiates * Urine shows large amount of occult blood and urine bacteria. Nitrates and leukocyte esterase. Culture is indicated * Urine culture collected and was negative * Blood culture was collected and shows Staphylococcus aureus * Chest x-ray shows abnormal examination demonstrating multiple bilateral lung masses. Findings are concerning for septic emboli and this young patient. * Abdominal and CT shows prominent areas of consolidation of the lung basis. Several D's have rounded configuration raising possibility of septic emboli. Diffuse infection could have a similar infection could have similar appearance. * Patient admitted to the ICU as patient has severe sepsis. Worsening sepsis and required intubation 09/02/2017. Infectious disease was consulted and came to evaluate patient. Patient cultures and clinical condition or follow-up. Patient currently been managed by web offset press feeder. Chest CT shows extensive bilateral infiltrates. Brain MRI did not show anything acute. 2-D echo shows an EF of 60-65%. There is tricuspid valve regurgitation. 09/03/2017 patient has bilateral lung consolidation most obstruction typical staph infection. Patient remains floridly septic requiring multiple vasopressors. BIN was ordered. Peripheral blood cultures repeated and positive for staph aureus infection. Sputum culture was repeated and shows staph aureus infection. 09/04 to 09/05/2017 BIN shows also a mass in the tricuspid valve consistent with a vegetation. Patient continues to do it. Despite maximal vasopressor support and antibiotics coverage. As hemorrhagic pneumonia consistent with staph infection in the lungs. CT scan of the chest x-ray revealed multiple areas of lung destruction per web offset press feeder notes. Patient was made a DNR after talking with family. 09/06 to 09/07-patient continued to be septic, worsening renal function and is uric. Multisystemic organs failure. Public Relations Director noted prognosis is grave. Hemodynamically unstable requiring pressors, hemoglobin worsening. Palliative care consulted to review goals of care with family. Chest x-ray from 4:41 AM shows bilateral infiltrates showing signs of cavitation If met with patient's father, stepmother, and sister. Patient's mother has been very difficult to reach per medical staff. Per patient's family, patient mother would promise to come to have a family meeting in the hospital, but would not show up. I've answered questions by the father and patient's sister. Reaffirmed and concur the poor prognosis that patient has. Father understand that patient will not survive current hospitalization and will pass away. Pt minimally responsive on my visit. Goals of care are as follows: Father does wants not want to continue antibiotics. He does want pressors to continue for now, as he wants to lighten sedation so that she can open her eyes and see family. After that he is amenable to give medicine again for pain, dyspnea, and discomfort. I have called mother and will give her chance to call back, but she had not been and does not want to be involved with pt's hospitalization and medical decisions. All I have was voicemail. I have left a detailed message and my cell number. Pt's mother is called Michelle Colon [phone]. Father accepts that pt will past away and not survive, but could not bear to take another love one/ daughter off the ventilator. Amenable to DNR and comfort meds after attempt to wake up pt and have her open her eyes with lighten sedation. After that, medical team may continue comfort meds. They will not extubate, they will consider stopping pressors, if pt after lightening up on sedation could open eyes. Function/Cognitive Trajectory see hpi. Has had multiple hospitalization for osteomyelties and infection. Continue to struggle with substance abuse. Review of Systems ROS Limitations: Clinical Condition Constitutional: COMPLAINS OF: Fatigue, Fever Cardiovascular: COMPLAINS OF: Chest pain, Lower Extremity Edema Genitourinary: COMPLAINS OF: Decreased stream (anuria) Past Family Social History Coded Allergies: neomycin (Verified Allergy, Severe, 09/01/17) Past Medical History substance abuse hx of osteomyeltis of right foot Asthma staph bactermia Past Surgical History none Current Medications Medications (Trade) Dose Ordered Sig/Marie Route Start Time Stop Time Status Last Admin (NS Flush) 2 ml UNSCH PRN IV FLUSH 09/01/17 19:30 (NS Flush) 2 ml BID IV FLUSH 09/01/17 21:00 09/07/17 09:01 (Tylenol) 650 mg Q6H PRN PO 09/01/17 19:30 ([place] 5-325 Mg) 1 tab Q4H PRN PO 09/01/17 19:30 (Morphine Inj) 2 mg Q2H PRN IV PUSH 09/01/17 19:30 09/01/17 23:51 (Zofran Inj) 4 mg Q6H PRN IV PUSH 09/01/17 19:30 (Duoneb Neb) 1 ampule Q2HR NEB PRN INH 09/01/17 19:30 09/02/17 00:44 Miscellaneous Information 1 Q361D XX 09/01/17 19:30 (Chlorhexidine 2% Cloth) Taper DAILY@04 TOP 09/02/17 04:00 08/29/18 03:59 09/04/17 04:00 (Chlorhexidine 2% Cloth) 3 pack UNSCH PRN TOP 09/01/17 19:30 (Ann-Marie-Colace) 1 tab BID PO 09/01/17 21:00 09/07/17 09:04 (Milk Of Magnesia Liq) 30 ml Q12H PRN PO 09/01/17 19:30 (Senokot) 17.2 mg Q12H PRN PO 09/01/17 19:30 (Dulcolax Supp) 10 mg DAILY PRN RECTAL 09/01/17 19:30 (Lactulose Liq) 30 ml DAILY PRN PO 09/01/17 19:30 (Ativan Inj) 1 mg Q4H PRN IV PUSH 09/01/17 22:45 09/07/17 08:58 (Brethine Inj) 1 mg UNSCH PRN SQ 09/02/17 05:30 Midazolam HCl 100 ml @ 2 mls/hr TITRATE PRN IV 09/02/17 08:00 09/07/17 13:02 Fentanyl Citrate 250 ml @ 5 mls/hr TITRATE PRN IV 09/02/17 08:00 09/07/17 11:05 (Brethine Inj) 1 mg UNSCH PRN SQ 09/02/17 12:15 (Pepcid Inj) 10 mg Q12HR IV PUSH 09/03/17 09:00 09/07/17 09:03 Acetaminophen 100 ml @ 400 mls/hr Q6H PRN IV 09/03/17 02:15 09/05/17 14:15 Potassium Chloride 100 ml @ 50 mls/hr Q2H PRN IV 09/03/17 06:00 Future Hold 09/03/17 09:14 Potassium Chloride 100 ml @ 50 mls/hr Q2H PRN IV 09/03/17 06:00 Future Hold (K-Lyte Cl Eff) 50 meq UNSCH PRN PO 09/03/17 06:00 Future Hold Potassium Chloride 100 ml @ 25 mls/hr UNSCH PRN IV 09/03/17 06:00 Future Hold Potassium Chloride 100 ml @ 50 mls/hr Q2H PRN IV 09/03/17 06:00 Future Hold Magnesium Sulfate 4 gm/Sodium Chloride 100 ml @ 50 mls/hr UNSCH PRN IV 09/03/17 06:00 Future Hold (Mag-Ox) 800 mg UNSCH PRN PO 09/03/17 06:00 Future Hold Magnesium Sulfate 2 gm/Sodium Chloride 100 ml @ 50 mls/hr UNSCH PRN IV 09/03/17 06:00 Future Hold (K-Phos) 2,000 mg Q4H PRN PO 09/03/17 06:00 Future Hold Sodium Phosphate 30 mmol/Sodium Chloride 250 ml @ 42 mls/hr UNSCH PRN IV 09/03/17 06:00 Future Hold (K-Phos) 2,000 mg UNSCH PRN PO/TUBE 09/03/17 06:00 Future Hold Potassium Phosphate 30 mmol/ Sodium Chloride 260 ml @ 42 mls/hr UNSCH PRN IV 09/03/17 06:00 Future Hold 09/04/17 18:31 Cefazolin Sodium 1000 mg/Sodium Chloride 100 ml @ 200 mls/hr Q12H IV 09/06/17 21:00 09/07/17 08:59 Family History could not elicit. Substance Use Tobacco:yes Alcohol:socially Illicits:yes. cocaine. and IVDU Psychosocial History Complex family dynamics. Has Father, step mother, and sister. Not . no adult children. Pts biologically mother reportedly also has substance abuse issue Spiritual/Cultural Factors none listed. Living Will: Never completed Health Care Surrogate: Never completed Durable Power of Hardware Installer: Never completed Physical Exam Vital Signs Date Time Temp Pulse Resp B/P (MAP) Pulse Ox O2 Delivery O2 Flow Rate FiO2 09/07/17 14:00 95 09/07/17 12:00 103 09/07/17 12:00 98.6 103 30 95/54 (68) 100 09/07/17 12:00 40 09/07/17 10:00 100 09/07/17 08:00 40 09/07/17 08:00 99.1 94 31 109/49 (69) 100 09/07/17 08:00 94 09/07/17 07:52 100 40 09/07/17 07:00 100 Mechanical Ventilator 40 09/07/17 06:00 96 09/07/17 04:57 100 40 09/07/17 04:00 40 09/07/17 04:00 98.4 95 29 95/44 (61) 100 09/07/17 04:00 95 09/07/17 02:00 95 09/07/17 00:00 98.4 98 28 93/63 (73) 100 09/07/17 00:00 98 09/07/17 00:00 40 09/06/17 22:51 100 40 09/06/17 22:00 84 09/06/17 20:00 40 09/06/17 20:00 97.6 103 25 104/59 (74) 100 09/06/17 20:00 99 09/06/17 19:00 100 Mechanical Ventilator 6.00 40 09/06/17 18:00 103 09/06/17 16:09 100 40 09/06/17 16:00 98 09/06/17 16:00 40 09/06/17 16:00 99.9 100 25 89/47 (61) 100 09/07/17 09/08/17 19:00 07:00 Intake Total 70 ml Output Total 370.0 ml Balance -300.0 ml Other 70 ml Gastric Drainage Total 185 ml Tube Feeding Residual Discard 185.0 ml # Bowel Movements 2 Exam CONSTITUTIONAL/GENERAL: This is frail young lady, intubated and sedated. TUBES/LINES/DRAINS:right sublavian central line. rajput, piv, endotrachial tube. SKIN: No jaundice, rashes, or lesions. Ecchymoses on upper extremities. HEAD: Atraumatic. Normocephalic. EYES: Pupils equal and round and reactive. Extraocular motions intact. No scleral icterus. No injection or drainage. Fundi not examined. ENT: Hearing grossly normal. Nose without bleeding or purulent drainage. Throat ET tube inplace, hemoptysis. NECK: Trachea midline. Supple, nontender. CARDIOVASCULAR: Regular rate and rhythm without murmurs, gallops, or rubs. No JVD. RESPIRATORY/CHEST: Symmetric, ronchi on aslutation, bloody dark secretions. GASTROINTESTINAL: Abdomen soft, non-tender, nondistended. No hepato-splenomegaly , or palpable masses. No guarding. Bowel sounds present. GENITOURINARY: Without palpable bladder distension. Rajput catheter in place. MUSCULOSKELETAL: ext edemetous, restraints. LYMPHATICS: No palpable cervical or supraclavicular adenopathy. NEUROLOGICAL: sedated, on ventilator PSYCHIATRIC: No obvious anxiety/depression, comfortable, need sedation. Diagnostic Tests Laboratory Laboratory Tests Test 09/05/17 05:32 09/06/17 04:00 09/06/17 10:15 09/06/17 17:45 White Blood Count 12.2 TH/MM3 (4.0-11.0) 14.9 TH/MM3 (4.0-11.0) Red Blood Count 2.33 MIL/MM3 (4.00-5.30) 2.38 MIL/MM3 (4.00-5.30) Hemoglobin 6.6 GM/DL (11.6-15.3) 6.8 GM/DL (11.6-15.3) Hematocrit 20.2 % (35.0-46.0) 20.8 % (35.0-46.0) Mean Corpuscular Volume 86.8 FL (80.0-100.0) 87.4 FL (80.0-100.0) Mean Corpuscular Hemoglobin 28.4 PG (27.0-34.0) 28.6 PG (27.0-34.0) Mean Corpuscular Hemoglobin Concent 32.7 % (32.0-36.0) 32.7 % (32.0-36.0) Red Cell Distribution Width 15.4 % (11.6-17.2) 15.5 % (11.6-17.2) Platelet Count 91 TH/MM3 (150-450) 121 TH/MM3 (150-450) Mean Platelet Volume 10.6 FL (7.0-11.0) 10.5 FL (7.0-11.0) Neutrophils (%) (Auto) 85.5 % (16.0-70.0) 86.1 % (16.0-70.0) Lymphocytes (%) (Auto) 10.5 % (9.0-44.0) 10.3 % (9.0-44.0) Monocytes (%) (Auto) 2.9 % (0.0-8.0) 1.7 % (0.0-8.0) Eosinophils (%) (Auto) 0.7 % (0.0-4.0) 1.7 % (0.0-4.0) Basophils (%) (Auto) 0.4 % (0.0-2.0) 0.2 % (0.0-2.0) Neutrophils # (Auto) 10.5 TH/MM3 (1.8-7.7) 12.8 TH/MM3 (1.8-7.7) Lymphocytes # (Auto) 1.3 TH/MM3 (1.0-4.8) 1.5 TH/MM3 (1.0-4.8) Monocytes # (Auto) 0.4 TH/MM3 (0-0.9) 0.3 TH/MM3 (0-0.9) Eosinophils # (Auto) 0.1 TH/MM3 (0-0.4) 0.3 TH/MM3 (0-0.4) Basophils # (Auto) 0.0 TH/MM3 (0-0.2) 0.0 TH/MM3 (0-0.2) CBC Comment AUTO DIFF DIFF FINAL Differential Total Cells Counted 100 Neutrophils % (Manual) 60 % (16-70) Band Neutrophils % 35 % (0-6) Lymphocytes % 5 % (9-44) Neutrophils # (Manual) 11.6 TH/MM3 (1.8-7.7) Differential Comment FINAL DIFF MANUAL Platelet Estimate LOW (NORMAL) Platelet Morphology Comment ENLARGED (NORMAL) Blood Urea Nitrogen 58 MG/DL (7-18) 71 MG/DL (7-18) Creatinine 2.88 MG/DL (0.50-1.00) 4.22 MG/DL (0.50-1.00) Random Glucose 146 MG/DL (74-106) 106 MG/DL (74-106) Total Protein 5.7 GM/DL (6.4-8.2) 6.0 GM/DL (6.4-8.2) Albumin 1.1 GM/DL (3.4-5.0) 1.0 GM/DL (3.4-5.0) Calcium Level 7.3 MG/DL (8.5-10.1) 7.4 MG/DL (8.5-10.1) Alkaline Phosphatase 138 U/L (45-117) 140 U/L (45-117) Aspartate Amino Transf (AST/SGOT) 27 U/L (15-37) 21 U/L (15-37) Alanine Aminotransferase (ALT/SGPT) LESS THAN 6 U/L (10-53) LESS THAN 6 U/L (10-53) Total Bilirubin 0.6 MG/DL (0.2-1.0) 0.3 MG/DL (0.2-1.0) Sodium Level 148 MEQ/L (136-145) 148 MEQ/L (136-145) Potassium Level 4.1 MEQ/L (3.5-5.1) 4.5 MEQ/L (3.5-5.1) Chloride Level 120 MEQ/L (98-107) 121 MEQ/L (98-107) Carbon Dioxide Level 18.0 MEQ/L (21.0-32.0) 16.8 MEQ/L (21.0-32.0) Anion Gap 10 MEQ/L (5-15) 10 MEQ/L (5-15) Estimat Glomerular Filtration Rate 19 ML/MIN (>89) 13 ML/MIN (>89) Protein Corrected Calcium 8.1 MG/DL (8.5-10.1) 8.0 MG/DL (8.5-10.1) Phosphorus Level 5.4 MG/DL (2.5-4.9) Magnesium Level 2.6 MG/DL (1.5-2.5) Lactic Acid Level 2.3 mmol/L (0.4-2.0) Human Chorionic Gonadotropin, Quant LESS THAN 1 MIU/ML (0-5) Hepatitis A IgM Antibody NEGATIVE (NEGATIVE) Hepatitis B Surface Antigen NEGATIVE (NEGATIVE) Hepatitis B Core IgM Antibody NEGATIVE (NEGATIVE) Hepatitis C Antibody REACTIVE (NEGATIVE) HIV (1&2) Antibody NEGATIVE (NEGATIVE) Test 09/07/17 08:50 09/07/17 09:10 Blood Gas Puncture Site ART LINE Blood Gas Patient Temperature 98.6 Blood Gas HCO3 14 mmol/L (22-26) Blood Gas Base Excess -11.3 mmol/L (-2-2) Blood Gas Oxygen Saturation 95 % (90-100) Arterial Blood pH 7.26 (7.380-7.420) Arterial Blood Partial Pressure CO2 33 mmHg (38-42) Arterial Blood Partial Pressure O2 101 mmHg (61-120) Arterial Blood Oxygen Content 11.8 Vol % (12.0-20.0) Arterial Blood Carboxyhemoglobin 1.7 % (0-4) Arterial Blood Methemoglobin 0.5 % (0-2) Blood Gas Hemoglobin 8.8 G/DL (12.0-16.0) Oxygen Delivery Device VENTILATOR Blood Gas Ventilator Setting Blood Gas Inspired Oxygen 40 % White Blood Count 9.9 TH/MM3 (4.0-11.0) Red Blood Count 2.09 MIL/MM3 (4.00-5.30) Hemoglobin 6.0 GM/DL (11.6-15.3) Hematocrit 18.3 % (35.0-46.0) Mean Corpuscular Volume 87.7 FL (80.0-100.0) Mean Corpuscular Hemoglobin 28.9 PG (27.0-34.0) Mean Corpuscular Hemoglobin Concent 32.9 % (32.0-36.0) Red Cell Distribution Width 15.7 % (11.6-17.2) Platelet Count 117 TH/MM3 (150-450) Mean Platelet Volume 10.0 FL (7.0-11.0) Neutrophils (%) (Auto) 84.1 % (16.0-70.0) Lymphocytes (%) (Auto) 10.3 % (9.0-44.0) Monocytes (%) (Auto) 2.4 % (0.0-8.0) Eosinophils (%) (Auto) 2.5 % (0.0-4.0) Basophils (%) (Auto) 0.7 % (0.0-2.0) Neutrophils # (Auto) 8.3 TH/MM3 (1.8-7.7) Lymphocytes # (Auto) 1.0 TH/MM3 (1.0-4.8) Monocytes # (Auto) 0.2 TH/MM3 (0-0.9) Eosinophils # (Auto) 0.2 TH/MM3 (0-0.4) Basophils # (Auto) 0.1 TH/MM3 (0-0.2) CBC Comment AUTO DIFF Differential Comment AUTO DIFF CONFIRMED Result Diagram: 09/07/17 0910 09/06/17399 Imaging Last Impressions Chest X-Ray 09/07/170 Signed Impressions: Service Date/Time: Thursday, September 07, 2017 04:41 - CONCLUSION: Bilateral infiltrates showing signs of cavitation. Lorenzo Junior MD Chest CT 09/02/17 0000 Signed Impressions: Service Date/Time: Saturday, September 02, 2017 10:00 - CONCLUSION: Extensive bilateral infiltrates. Small effusions. Lorenzo Junior MD Brain MRI 09/02/17 0000 Signed Impressions: Service Date/Time: Saturday, September 02, 2017 17:21 - CONCLUSION: Normal examination. Lorenzo Perez MD Abdomen/Pelvis CT 09/01/17 1815 Signed Impressions: Service Date/Time: Friday, September 01, 2017 19:37 - CONCLUSION: 1. Multiple prominent areas of consolidation at the lung bases. Several of these have a rounded configuration raising possibility of septic emboli. Diffuse infection could have a similar appearance. 2. Mild proximal spleen. 3. 5.9 center cystic area in the right adnexa likely related to right ovarian cyst. 4. Mild to moderate dilatation of the collecting systems bilaterally. The ureters do not appear distended. Lorenzo Perez MD Patient/Family Conference Present at Family Conference: Father, step mother, and pt's sister. Family Conference Time (mins): 40 Family Conference Location: Bedside Issues Discussed: * Palliative care role, purpose, approach * Additional medical, psychosocial, and spiritual history * Patients general health, functional status, and cognitive changes in the months leading up to the current hospitalization * Patient/family understanding of the current medical problems * Patient/family understanding of prognosis * Patients goals of care as best understood from advance directives and/or conversations and/or values * Current medical treatment options and benefits/burdens of those options * Likely scenarios comparing ongoing aggressive care with a transition to comfort measures only * Questions answered to the best of my ability * Palliative care contact information provided Assessment and Plan Disease Oriented Problem List: (1) Severe sepsis (2) Septic embolism (3) IV drug abuse (4) Renal failure Comment: sepsis (5) Respiratory failure Symptom Scale: Pertinent Non-Medical Issues Psychosocial: Spiritual: Legal: Ethical issues impacting care: Important Contacts Father Balaji Valencia [phone] Mother Michelle Colon [phone] Prognosis 27 year old with endocarditis, severe sepsis, renal failure, hemodynamically unstable. Prognosis is poor. Code Status: No Code Plan == Code- DNR == capacity to make medical decisions: none. == health care proxy.- pt not no adult children. Pt's proxy is Ángel Valencia (father) Mother has not participated in decision making,and has been difficulty to reach. At times promised children and other family to come to the hospital but never showed up. I have called Michelle and left a message with voicemail with my phone number [phone]. Awaiting call back. If she does not call back, she likely is not reachable and does not want to participate in medical decision making. == goals of care: Father does wants not want to continue antibiotics. He does want pressors to continue for now, as he wants to lighten sedation so that she can open her eyes and see family. After that he is amenable to give medicine again for pain, dyspnea, and discomfort. I will likely stop antibiotics tomorrow, just waiting for mother to call back. Father accepts that pt will past away and not survive, but could not bear to take another love one/ daughter off the ventilator. Amenable to DNR and comfort meds after attempt to wake up pt and have her open her eyes, after that medical team may continue comfort meds. They will not extubate, they will consider stopping pressors, if pt after lightening up on sedation could open eyes. ==symptom of discomfort: dyspnea, pain, anxiety- family amenable to comfort meds after attempt to have pt eyes open after lightening sedation. We told them pt could be uncomfortable. == d/w with attending physician and id. == palliative care will continue to follow. Time Spent >50% Counseling/Coord of Care: Yes Thank you for the opportunity to participate in the care of Ms. Valencia. Attestation To help prompt me to consider important information that might be impacting today's encounter and assessment, information from prior notes written by myself or my colleagues may have been "brought forward" into today's note. My signature on this note, however, is an attestation that I personally performed the exam, history, and/or decision-making noted today, and, unless otherwise indicated, the interactions with patient, family, and staff as well as the review of records all occurred today. I also attest that the listed assessment and stated plan reflect my best clinical judgment today based on the combination of historical information, prior notes, and today's exam/ interactions. When time spent is documented, it refers only to time spent today by the signer, or if indicated, combined time spent today by collaborating physician/nurse practitioner. Tariq Benitez MD Sep 07, 2017 16:15
[2017-09-08] VITALS (19 sets, daily range): BP systolic 93–133; BP diastolic 55–84; PULSE 103–113; RESP 30–35; TEMP 98.1–99.3; O2SAT 96–100
[2017-09-08] MEDS: CHLORHEXIDINE GLUCONATE 2 % 1 PACK (2 CLOTHS) TOP SCH (04:00)
[2017-09-08] MEDS: fentaNYL DRIP 250 ML IV PRN ×2 (05:18→20:09)
[2017-09-08 05:53] LABS: AUTOMATED NEUTROPHIL # 7.9 TH/MM3 (1.8-7.7); BASOPHIL % 0.3 % (0.0-2.0); EOSINOPHIL # 0.2 TH/MM3 (0-0.4); LYMPH % 11.6 % (9.0-44.0); LYMPHOCYTE # 1.1 TH/MM3 (1.0-4.8); MEAN CELL VOLUME 88.8 FL (80.0-100.0); MEAN CORPUSCULAR HEMOGLOBIN 29.2 PG (27.0-34.0); MEAN CORPUSCULAR HGB CONC 32.8 % (32.0-36.0); MONO % 3.2 % (0.0-8.0); NEUT % 82.9 % (16.0-70.0); PLATELET COUNT 130 TH/MM3 (150-450); RED BLOOD COUNT 1.97 MIL/MM3 (4.00-5.30); RED CELL DISTRIBUTION WIDTH 15.7 % (11.6-17.2); WHITE BLOOD COUNT 9.5 TH/MM3 (4.0-11.0)
[2017-09-08 06:11] LABS: HEMO FLAGS DIFF FINAL
[2017-09-08 06:13] LABS: HEMATOCRIT 17.5 % (35.0-46.0)
[2017-09-08 06:30] LABS: ALKALINE PHOSPHATASE 91 U/L (45-117); ALT (GPT) LESS THAN 6 U/L (10-53); ANION GAP 11 MEQ/L (5-15); AST (GOT) 15 U/L (15-37); BICARBONATE 16.6 MEQ/L (21.0-32.0); BLOOD UREA NITROGEN 102 MG/DL (7-18); CHLORIDE 120 MEQ/L (98-107); GLOMERULAR FILTRATION RATE 7 ML/MIN (>89); POTASSIUM 5.3 MEQ/L (3.5-5.1); SODIUM (NA) 148 MEQ/L (136-145); TOTAL BILIRUBIN ADULT 0.2 MG/DL (0.2-1.0)
[2017-09-08] MEDS: SODIUM CHLORIDE 0.9% FLUSH 10 ML FLUSH IV FLUSH SCH ×2 (09:10→21:00)
[2017-09-08] MEDS: FAMOTIDINE 20 MG/2 ML VIAL IV PUSH SCH (09:11)
[2017-09-08] MEDS: DOCUSATE SODIUM 50 MG/SENNA 8.6 MG TAB PO SCH ×2 (09:11→22:15)
--- NOTE | 2017-09-08 11:11 | HHI.HCPN ---
Reason for visit a. To assist with evaluation and management of symptoms including:pain b. To assist medical decision maker(s) with: better understanding of current medical conditions; weighing benefits/burdens of medical treatment options; making medical treatment decisions. Subjective/Interval History Pt continue to be mechanically ventilated and have overallwhelming sepsis. Hgb is 5.7. Cr. is worsening. 6.6. Advance Directives Living Will: Never completed Health Care Surrogate: Never completed Durable Power of Lump Machine Operator: Never completed Objective Vital Signs Date Time Temp Pulse Resp B/P (MAP) Pulse Ox O2 Delivery O2 Flow Rate FiO2 09/08/17 09:55 100 40 09/08/17 08:00 111 09/08/17 08:00 40 09/08/17 08:00 99.1 110 33 100 133/64 (87) 09/08/17 07:00 100 Mechanical Ventilator 40 09/08/17 06:00 112 09/08/17 04:25 98 40 09/08/17 04:00 99.3 108 30 106/58 (74) 98 111/55 (73) 09/08/17 04:00 40 09/08/17 04:00 110 09/08/17 02:00 105 09/08/17 01:15 96 40 09/08/17 00:00 110 09/08/17 00:00 40 09/08/17 00:00 98.1 110 34 103/57 (72) 100 123/62 (82) 09/07/17 22:00 97 09/07/17 20:41 100 40 09/07/17 20:00 98.3 99 30 113/52 (72) 100 97/53 (68) 09/07/17 20:00 99 09/07/17 20:00 40 09/07/17 19:00 100 Mechanical Ventilator 40 09/07/17 18:00 98 09/07/17 16:42 95 40 09/07/17 16:00 98 09/07/17 16:00 98.2 98 25 97/55 (69) 100 09/07/17 16:00 40 09/07/17 14:00 95 09/07/17 12:00 103 09/07/17 12:00 98.6 103 30 95/54 (68) 100 09/07/17 12:00 40 Intake & Output 09/08/17 09/08/17 07:00 19:00 Intake Total 171 ml 50 ml Output Total 50 ml Balance 121 ml 50 ml IV Total 171 ml Other 50 ml Output Urine Total 50 ml Stool Total 0 ml # Sanitary Pads 1 Pads Physical Exam CONSTITUTIONAL/GENERAL: This is frail young lady, intubated and sedated. TUBES/LINES/DRAINS:right sublavian central line. rajput, piv, endotrachial tube. SKIN: No jaundice, rashes, or lesions. Ecchymoses on upper extremities. HEAD: Atraumatic. Normocephalic. EYES: Pupils equal and round and reactive. Extraocular motions intact. No scleral icterus. No injection or drainage. Fundi not examined. ENT: Hearing grossly normal. Nose without bleeding or purulent drainage. Throat ET tube inplace, hemoptysis. NECK: Trachea midline. Supple, nontender. CARDIOVASCULAR: Regular rate and rhythm without murmurs, gallops, or rubs. No JVD. RESPIRATORY/CHEST: Symmetric, ronchi on aslutation, bloody dark secretions. GASTROINTESTINAL: Abdomen soft, non-tender, nondistended. No hepato-splenomegaly , or palpable masses. No guarding. Bowel sounds present. GENITOURINARY: Without palpable bladder distension. Rajput catheter in place. MUSCULOSKELETAL: ext edemetous, restraints. LYMPHATICS: No palpable cervical or supraclavicular adenopathy. NEUROLOGICAL: sedated, on ventilator PSYCHIATRIC: No obvious anxiety/depression, comfortable, need sedation. Diagnostic Tests Laboratory Laboratory Tests Test 09/06/17 04:00 09/06/17 10:15 09/06/17 17:45 09/07/17 08:50 White Blood Count 14.9 TH/MM3 (4.0-11.0) Red Blood Count 2.38 MIL/MM3 (4.00-5.30) Hemoglobin 6.8 GM/DL (11.6-15.3) Hematocrit 20.8 % (35.0-46.0) Mean Corpuscular Volume 87.4 FL (80.0-100.0) Mean Corpuscular Hemoglobin 28.6 PG (27.0-34.0) Mean Corpuscular Hemoglobin Concent 32.7 % (32.0-36.0) Red Cell Distribution Width 15.5 % (11.6-17.2) Platelet Count 121 TH/MM3 (150-450) Mean Platelet Volume 10.5 FL (7.0-11.0) Neutrophils (%) (Auto) 86.1 % (16.0-70.0) Lymphocytes (%) (Auto) 10.3 % (9.0-44.0) Monocytes (%) (Auto) 1.7 % (0.0-8.0) Eosinophils (%) (Auto) 1.7 % (0.0-4.0) Basophils (%) (Auto) 0.2 % (0.0-2.0) Neutrophils # (Auto) 12.8 TH/MM3 (1.8-7.7) Lymphocytes # (Auto) 1.5 TH/MM3 (1.0-4.8) Monocytes # (Auto) 0.3 TH/MM3 (0-0.9) Eosinophils # (Auto) 0.3 TH/MM3 (0-0.4) Basophils # (Auto) 0.0 TH/MM3 (0-0.2) CBC Comment DIFF FINAL Differential Comment Blood Urea Nitrogen 71 MG/DL (7-18) Creatinine 4.22 MG/DL (0.50-1.00) Random Glucose 106 MG/DL (74-106) Total Protein 6.0 GM/DL (6.4-8.2) Albumin 1.0 GM/DL (3.4-5.0) Calcium Level 7.4 MG/DL (8.5-10.1) Alkaline Phosphatase 140 U/L (45-117) Aspartate Amino Transf (AST/SGOT) 21 U/L (15-37) Alanine Aminotransferase (ALT/SGPT) LESS THAN 6 U/L (10-53) Total Bilirubin 0.3 MG/DL (0.2-1.0) Sodium Level 148 MEQ/L (136-145) Potassium Level 4.5 MEQ/L (3.5-5.1) Chloride Level 121 MEQ/L (98-107) Carbon Dioxide Level 16.8 MEQ/L (21.0-32.0) Anion Gap 10 MEQ/L (5-15) Estimat Glomerular Filtration Rate 13 ML/MIN (>89) Lactic Acid Level 2.3 mmol/L (0.4-2.0) Protein Corrected Calcium 8.0 MG/DL (8.5-10.1) Human Chorionic Gonadotropin, Quant LESS THAN 1 MIU/ML (0-5) Hepatitis A IgM Antibody NEGATIVE (NEGATIVE) Hepatitis B Surface Antigen NEGATIVE (NEGATIVE) Hepatitis B Core IgM Antibody NEGATIVE (NEGATIVE) Hepatitis C Antibody REACTIVE (NEGATIVE) HIV (1&2) Antibody NEGATIVE (NEGATIVE) Blood Gas Puncture Site ART LINE Blood Gas Patient Temperature 98.6 Blood Gas HCO3 14 mmol/L (22-26) Blood Gas Base Excess -11.3 mmol/L (-2-2) Blood Gas Oxygen Saturation 95 % (90-100) Arterial Blood pH 7.26 (7.380-7.420) Arterial Blood Partial Pressure CO2 33 mmHg (38-42) Arterial Blood Partial Pressure O2 101 mmHg (61-120) Arterial Blood Oxygen Content 11.8 Vol % (12.0-20.0) Arterial Blood Carboxyhemoglobin 1.7 % (0-4) Arterial Blood Methemoglobin 0.5 % (0-2) Blood Gas Hemoglobin 8.8 G/DL (12.0-16.0) Oxygen Delivery Device VENTILATOR Blood Gas Ventilator Setting Blood Gas Inspired Oxygen 40 % Test 09/07/17 09:10 09/08/17 05:20 White Blood Count 9.9 TH/MM3 (4.0-11.0) 9.5 TH/MM3 (4.0-11.0) Red Blood Count 2.09 MIL/MM3 (4.00-5.30) 1.97 MIL/MM3 (4.00-5.30) Hemoglobin 6.0 GM/DL (11.6-15.3) 5.7 GM/DL (11.6-15.3) Hematocrit 18.3 % (35.0-46.0) 17.5 % (35.0-46.0) Mean Corpuscular Volume 87.7 FL (80.0-100.0) 88.8 FL (80.0-100.0) Mean Corpuscular Hemoglobin 28.9 PG (27.0-34.0) 29.2 PG (27.0-34.0) Mean Corpuscular Hemoglobin Concent 32.9 % (32.0-36.0) 32.8 % (32.0-36.0) Red Cell Distribution Width 15.7 % (11.6-17.2) 15.7 % (11.6-17.2) Platelet Count 117 TH/MM3 (150-450) 130 TH/MM3 (150-450) Mean Platelet Volume 10.0 FL (7.0-11.0) 9.9 FL (7.0-11.0) Neutrophils (%) (Auto) 84.1 % (16.0-70.0) 82.9 % (16.0-70.0) Lymphocytes (%) (Auto) 10.3 % (9.0-44.0) 11.6 % (9.0-44.0) Monocytes (%) (Auto) 2.4 % (0.0-8.0) 3.2 % (0.0-8.0) Eosinophils (%) (Auto) 2.5 % (0.0-4.0) 2.0 % (0.0-4.0) Basophils (%) (Auto) 0.7 % (0.0-2.0) 0.3 % (0.0-2.0) Neutrophils # (Auto) 8.3 TH/MM3 (1.8-7.7) 7.9 TH/MM3 (1.8-7.7) Lymphocytes # (Auto) 1.0 TH/MM3 (1.0-4.8) 1.1 TH/MM3 (1.0-4.8) Monocytes # (Auto) 0.2 TH/MM3 (0-0.9) 0.3 TH/MM3 (0-0.9) Eosinophils # (Auto) 0.2 TH/MM3 (0-0.4) 0.2 TH/MM3 (0-0.4) Basophils # (Auto) 0.1 TH/MM3 (0-0.2) 0.0 TH/MM3 (0-0.2) CBC Comment AUTO DIFF DIFF FINAL Differential Comment AUTO DIFF CONFIRMED Blood Urea Nitrogen 102 MG/DL (7-18) Creatinine 6.60 MG/DL (0.50-1.00) Random Glucose 103 MG/DL (74-106) Total Protein 6.3 GM/DL (6.4-8.2) Albumin 0.9 GM/DL (3.4-5.0) Calcium Level 7.9 MG/DL (8.5-10.1) Alkaline Phosphatase 91 U/L (45-117) Aspartate Amino Transf (AST/SGOT) 15 U/L (15-37) Alanine Aminotransferase (ALT/SGPT) LESS THAN 6 U/L (10-53) Total Bilirubin 0.2 MG/DL (0.2-1.0) Sodium Level 148 MEQ/L (136-145) Potassium Level 5.3 MEQ/L (3.5-5.1) Chloride Level 120 MEQ/L (98-107) Carbon Dioxide Level 16.6 MEQ/L (21.0-32.0) Anion Gap 11 MEQ/L (5-15) Estimat Glomerular Filtration Rate 7 ML/MIN (>89) Lactic Acid Level 1.9 mmol/L (0.4-2.0) Result Diagram: 09/08/1751909/08/17519 Assessment and Plan Disease Oriented Problem List: (1) Severe sepsis (2) Septic embolism (3) IV drug abuse (4) Renal failure Comment: sepsis (5) Respiratory failure Symptom Scale: Pertinent Non-Medical Issues Psychosocial: Spiritual: Legal: Ethical issues impacting care: Important Contacts Father Balaji Valencia [phone] Mother Michelle Colon [phone] Prognosis 27 year old with endocarditis, severe sepsis, renal failure, hemodynamically unstable. Prognosis is poor. Code Status: No Code Plan == Code- DNR == capacity to make medical decisions: none. == health care proxy.- pt not no adult children. Pt's proxy is Ángel Valencia (father) Mother has not participated in decision making and have not called back, despite me leaving voicemail with my phone number. She ==symptom of discomfort: dyspnea, pain, anxiety- family amenable to comfort meds after attempt to have pt eyes open after lightening sedation. We told them pt could be uncomfortable. == d/w with attending physician and id. == palliative care will continue to follow. Attestation To help prompt me to consider important information that might be impacting today's encounter and assessment, information from prior notes written by myself or my colleagues may have been "brought forward" into today's note. My signature on this note, however, is an attestation that I personally performed the exam, history, and/or decision-making noted today, and, unless otherwise indicated, the interactions with patient, family, and staff as well as the review of records all occurred today. I also attest that the listed assessment and stated plan reflect my best clinical judgment today based on the combination of historical information, prior notes, and today's exam/ interactions. When time spent is documented, it refers only to time spent today by the signer, or if indicated, combined time spent today by collaborating physician/nurse practitioner. Tariq Benitez MD Sep 08, 2017 11:11
--- NOTE | 2017-09-08 11:55 | HHI.HCPN ---
Reason for visit a. To assist with evaluation and management of symptoms including:pain b. To assist medical decision maker(s) with: better understanding of current medical conditions; weighing benefits/burdens of medical treatment options; making medical treatment decisions. Subjective/Interval History Pt continue to be mechanically ventilated and have overallwhelming sepsis. Hgb is 5.7. Cr. is worsening. 6.6. Pt stirs sligtly to my visit, but overall unresponsive, and gagging. Family/friend interactions Pt stirs sligtly to my visit, but overall unresponsive, and gagging. I pointed this out to pt's father, and had discussion about comfort meds. He stated " I want her comfortable, but I am doing this more for my daughter." He state just a little more, then he will allow us to stop trial of lighten up on sedation, and allow us to start making her comfortable. He states woodworking machine operator has been by. He states no abx, pressors or escalation of care. He understands pt will not survive current hospitalization. Discussed suction, discomfort, and the importance of comfort meds so that she does not feel the congestions. At around 230PM, pt's father inform me to go back up on comfort meds and to keep her comfortable. Reaffirmed no pressors, no abx, and no further escalation with care. Okay with comfort meds. Just want pt comfortable. Non aggressive goals short of extubation. Pt is DNR/DNI. Advance Directives Living Will: Never completed Health Care Surrogate: Never completed Durable Power of Net Programmer Analyst: Never completed Objective Vital Signs Date Time Temp Pulse Resp B/P (MAP) Pulse Ox O2 Delivery O2 Flow Rate FiO2 09/08/17 09:55 100 40 09/08/17 08:00 111 09/08/17 08:00 40 09/08/17 08:00 99.1 110 33 100 133/64 (87) 09/08/17 07:00 100 Mechanical Ventilator 40 09/08/17 06:00 112 09/08/17 04:25 98 40 09/08/17 04:00 99.3 108 30 106/58 (74) 98 111/55 (73) 09/08/17 04:00 40 09/08/17 04:00 110 09/08/17 02:00 105 09/08/17 01:15 96 40 09/08/17 00:00 110 09/08/17 00:00 40 09/08/17 00:00 98.1 110 34 103/57 (72) 100 123/62 (82) 09/07/17 22:00 97 09/07/17 20:41 100 40 09/07/17 20:00 98.3 99 30 113/52 (72) 100 97/53 (68) 09/07/17 20:00 99 09/07/17 20:00 40 09/07/17 19:00 100 Mechanical Ventilator 40 09/07/17 18:00 98 09/07/17 16:42 95 40 09/07/17 16:00 98 09/07/17 16:00 98.2 98 25 97/55 (69) 100 09/07/17 16:00 40 09/07/17 14:00 95 09/07/17 12:00 103 09/07/17 12:00 98.6 103 30 95/54 (68) 100 09/07/17 12:00 40 Intake & Output 09/08/17 09/08/17 06:59 18:59 Intake Total 171 ml 50 ml Output Total 50 ml Balance 121 ml 50 ml IV Total 171 ml Other 50 ml Output Urine Total 50 ml Stool Total 0 ml # Sanitary Pads 1 Pads Physical Exam CONSTITUTIONAL/GENERAL: This is frail young lady, intubated, uncomfortable, gagging, grimacing. TUBES/LINES/DRAINS:right sublavian central line. rajput, piv, endotrachial tube. SKIN: No jaundice, rashes, or lesions. Ecchymoses on upper extremities. HEAD: Atraumatic. Normocephalic. EYES: eyes close on my visit and I did not force open. ENT: Hearing grossly normal. Nose without bleeding or purulent drainage. Throat ET tube inplace, hemoptysis. NECK: Trachea midline. Supple, nontender. CARDIOVASCULAR: Regular rate and rhythm without murmurs, gallops, or rubs. No JVD. RESPIRATORY/CHEST: Symmetric, ronchi on aslutation on all lung mishra, bloody dark secretions. GASTROINTESTINAL: Abdomen soft, non-tender, nondistended. No hepato-splenomegaly , or palpable masses. No guarding. Bowel sounds present. GENITOURINARY: Without palpable bladder distension. Rajput catheter in place. MUSCULOSKELETAL: ext edemetous, restraints. LYMPHATICS: No palpable cervical or supraclavicular adenopathy. NEUROLOGICAL: stirs on exam, but overall unresponsive. PSYCHIATRIC: axnious Diagnostic Tests Laboratory Laboratory Tests Test 09/06/17 04:00 09/06/17 10:15 09/06/17 17:45 09/07/17 08:50 White Blood Count 14.9 TH/MM3 (4.0-11.0) Red Blood Count 2.38 MIL/MM3 (4.00-5.30) Hemoglobin 6.8 GM/DL (11.6-15.3) Hematocrit 20.8 % (35.0-46.0) Mean Corpuscular Volume 87.4 FL (80.0-100.0) Mean Corpuscular Hemoglobin 28.6 PG (27.0-34.0) Mean Corpuscular Hemoglobin Concent 32.7 % (32.0-36.0) Red Cell Distribution Width 15.5 % (11.6-17.2) Platelet Count 121 TH/MM3 (150-450) Mean Platelet Volume 10.5 FL (7.0-11.0) Neutrophils (%) (Auto) 86.1 % (16.0-70.0) Lymphocytes (%) (Auto) 10.3 % (9.0-44.0) Monocytes (%) (Auto) 1.7 % (0.0-8.0) Eosinophils (%) (Auto) 1.7 % (0.0-4.0) Basophils (%) (Auto) 0.2 % (0.0-2.0) Neutrophils # (Auto) 12.8 TH/MM3 (1.8-7.7) Lymphocytes # (Auto) 1.5 TH/MM3 (1.0-4.8) Monocytes # (Auto) 0.3 TH/MM3 (0-0.9) Eosinophils # (Auto) 0.3 TH/MM3 (0-0.4) Basophils # (Auto) 0.0 TH/MM3 (0-0.2) CBC Comment DIFF FINAL Differential Comment Blood Urea Nitrogen 71 MG/DL (7-18) Creatinine 4.22 MG/DL (0.50-1.00) Random Glucose 106 MG/DL (74-106) Total Protein 6.0 GM/DL (6.4-8.2) Albumin 1.0 GM/DL (3.4-5.0) Calcium Level 7.4 MG/DL (8.5-10.1) Alkaline Phosphatase 140 U/L (45-117) Aspartate Amino Transf (AST/SGOT) 21 U/L (15-37) Alanine Aminotransferase (ALT/SGPT) LESS THAN 6 U/L (10-53) Total Bilirubin 0.3 MG/DL (0.2-1.0) Sodium Level 148 MEQ/L (136-145) Potassium Level 4.5 MEQ/L (3.5-5.1) Chloride Level 121 MEQ/L (98-107) Carbon Dioxide Level 16.8 MEQ/L (21.0-32.0) Anion Gap 10 MEQ/L (5-15) Estimat Glomerular Filtration Rate 13 ML/MIN (>89) Lactic Acid Level 2.3 mmol/L (0.4-2.0) Protein Corrected Calcium 8.0 MG/DL (8.5-10.1) Human Chorionic Gonadotropin, Quant LESS THAN 1 MIU/ML (0-5) Hepatitis A IgM Antibody NEGATIVE (NEGATIVE) Hepatitis B Surface Antigen NEGATIVE (NEGATIVE) Hepatitis B Core IgM Antibody NEGATIVE (NEGATIVE) Hepatitis C Antibody REACTIVE (NEGATIVE) HIV (1&2) Antibody NEGATIVE (NEGATIVE) Blood Gas Puncture Site ART LINE Blood Gas Patient Temperature 98.6 Blood Gas HCO3 14 mmol/L (22-26) Blood Gas Base Excess -11.3 mmol/L (-2-2) Blood Gas Oxygen Saturation 95 % (90-100) Arterial Blood pH 7.26 (7.380-7.420) Arterial Blood Partial Pressure CO2 33 mmHg (38-42) Arterial Blood Partial Pressure O2 101 mmHg (61-120) Arterial Blood Oxygen Content 11.8 Vol % (12.0-20.0) Arterial Blood Carboxyhemoglobin 1.7 % (0-4) Arterial Blood Methemoglobin 0.5 % (0-2) Blood Gas Hemoglobin 8.8 G/DL (12.0-16.0) Oxygen Delivery Device VENTILATOR Blood Gas Ventilator Setting Blood Gas Inspired Oxygen 40 % Test 09/07/17 09:10 09/08/17 05:20 White Blood Count 9.9 TH/MM3 (4.0-11.0) 9.5 TH/MM3 (4.0-11.0) Red Blood Count 2.09 MIL/MM3 (4.00-5.30) 1.97 MIL/MM3 (4.00-5.30) Hemoglobin 6.0 GM/DL (11.6-15.3) 5.7 GM/DL (11.6-15.3) Hematocrit 18.3 % (35.0-46.0) 17.5 % (35.0-46.0) Mean Corpuscular Volume 87.7 FL (80.0-100.0) 88.8 FL (80.0-100.0) Mean Corpuscular Hemoglobin 28.9 PG (27.0-34.0) 29.2 PG (27.0-34.0) Mean Corpuscular Hemoglobin Concent 32.9 % (32.0-36.0) 32.8 % (32.0-36.0) Red Cell Distribution Width 15.7 % (11.6-17.2) 15.7 % (11.6-17.2) Platelet Count 117 TH/MM3 (150-450) 130 TH/MM3 (150-450) Mean Platelet Volume 10.0 FL (7.0-11.0) 9.9 FL (7.0-11.0) Neutrophils (%) (Auto) 84.1 % (16.0-70.0) 82.9 % (16.0-70.0) Lymphocytes (%) (Auto) 10.3 % (9.0-44.0) 11.6 % (9.0-44.0) Monocytes (%) (Auto) 2.4 % (0.0-8.0) 3.2 % (0.0-8.0) Eosinophils (%) (Auto) 2.5 % (0.0-4.0) 2.0 % (0.0-4.0) Basophils (%) (Auto) 0.7 % (0.0-2.0) 0.3 % (0.0-2.0) Neutrophils # (Auto) 8.3 TH/MM3 (1.8-7.7) 7.9 TH/MM3 (1.8-7.7) Lymphocytes # (Auto) 1.0 TH/MM3 (1.0-4.8) 1.1 TH/MM3 (1.0-4.8) Monocytes # (Auto) 0.2 TH/MM3 (0-0.9) 0.3 TH/MM3 (0-0.9) Eosinophils # (Auto) 0.2 TH/MM3 (0-0.4) 0.2 TH/MM3 (0-0.4) Basophils # (Auto) 0.1 TH/MM3 (0-0.2) 0.0 TH/MM3 (0-0.2) CBC Comment AUTO DIFF DIFF FINAL Differential Comment AUTO DIFF CONFIRMED Blood Urea Nitrogen 102 MG/DL (7-18) Creatinine 6.60 MG/DL (0.50-1.00) Random Glucose 103 MG/DL (74-106) Total Protein 6.3 GM/DL (6.4-8.2) Albumin 0.9 GM/DL (3.4-5.0) Calcium Level 7.9 MG/DL (8.5-10.1) Alkaline Phosphatase 91 U/L (45-117) Aspartate Amino Transf (AST/SGOT) 15 U/L (15-37) Alanine Aminotransferase (ALT/SGPT) LESS THAN 6 U/L (10-53) Total Bilirubin 0.2 MG/DL (0.2-1.0) Sodium Level 148 MEQ/L (136-145) Potassium Level 5.3 MEQ/L (3.5-5.1) Chloride Level 120 MEQ/L (98-107) Carbon Dioxide Level 16.6 MEQ/L (21.0-32.0) Anion Gap 11 MEQ/L (5-15) Estimat Glomerular Filtration Rate 7 ML/MIN (>89) Lactic Acid Level 1.9 mmol/L (0.4-2.0) Result Diagram: 09/08/1751909/08/17519 Imaging Last Impressions Chest X-Ray 09/07/17 0400 Signed Impressions: Service Date/Time: Thursday, September 07, 2017 04:41 - CONCLUSION: Bilateral infiltrates showing signs of cavitation. Lorenzo Junior MD Chest CT 09/02/17 Signed Impressions: Service Date/Time: Saturday, September 02, 2017 10:00 - CONCLUSION: Extensive bilateral infiltrates. Small effusions. Lorenzo Junior MD Brain MRI 09/02/17 Signed Impressions: Service Date/Time: Saturday, September 02, 2017 17:21 - CONCLUSION: Normal examination. Lorenzo Perez MD Abdomen/Pelvis CT 09/01/17 1815 Signed Impressions: Service Date/Time: Friday, September 01, 2017 19:37 - CONCLUSION: 1. Multiple prominent areas of consolidation at the lung bases. Several of these have a rounded configuration raising possibility of septic emboli. Diffuse infection could have a similar appearance. 2. Mild proximal spleen. 3. 5.9 center cystic area in the right adnexa likely related to right ovarian cyst. 4. Mild to moderate dilatation of the collecting systems bilaterally. The ureters do not appear distended. Lorenzo Perez MD Assessment and Plan Disease Oriented Problem List: (1) Severe sepsis (2) Septic embolism (3) IV drug abuse (4) Renal failure Comment: sepsis (5) Respiratory failure Symptom Scale: Pertinent Non-Medical Issues Psychosocial: Spiritual: Legal: Ethical issues impacting care: Important Contacts Father Balaji Valencia [phone] Mother Michelle Colon [phone] Prognosis 27 year old with endocarditis, severe sepsis, renal failure, hemodynamically unstable. Prognosis is poor. Code Status: No Code Plan == Code- DNR/DNI == capacity to make medical decisions: none. == health care proxy.- pt not no adult children. Pt's proxy is Ángel Valencia (father) Mother has not participated in decision making and have not called back, despite me leaving voicemail with my phone number. == Goals of care: Pt gagging and uncomfortable I pointed this out to pt's father, and had discussion about comfort meds. He stated " I want her comfortable, but I am doing this more for my other daughter." (Pt' s sister) He state just a little more, then he will allow us to stop trial of lighten up on sedation, and allow us to start making her comfortable. He states woodworking machine operator has been by. He states no abx, no pressors or further escalation of care. He understands pt will not survive current hospitalization. Discussed suction, discomfort, and the importance of comfort meds so that she does not feel the congestions. At around 230PM, pt's father inform me to go back up on comfort meds and to keep her comfortable. [place]afirrme no pressors, no abx, and no further escalation with care. Okay with comfort meds. Just want pt comfortable. Non aggressive goals short of extubation. Pt is DNR/DNI. ==symptom of discomfort: dyspnea, pain, anxiety- family amenable to comfort meds after attempt to have pt eyes open after lightening sedation. We told them pt is uncomfortable. == d/w with attending physician == palliative care will continue to follow. Time Spent Total Floor Time (mins): 40 Face to Face Time (mins): 30 Attestation To help prompt me to consider important information that might be impacting today's encounter and assessment, information from prior notes written by myself or my colleagues may have been "brought forward" into today's note. My signature on this note, however, is an attestation that I personally performed the exam, history, and/or decision-making noted today, and, unless otherwise indicated, the interactions with patient, family, and staff as well as the review of records all occurred today. I also attest that the listed assessment and stated plan reflect my best clinical judgment today based on the combination of historical information, prior notes, and today's exam/ interactions. When time spent is documented, it refers only to time spent today by the signer, or if indicated, combined time spent today by collaborating physician/nurse practitioner. Tariq Benitez MD Sep 08, 2017 11:55
--- NOTE | 2017-09-08 12:11 | HHI.CCPN ---
Subjective Remarks/Hospital Course 27-year-old very pleasant female with history of IV drug abuse, last use Dilaudid 5 days ago, visiting here from [place], presents for evaluation of having myalgias and substernal sharp chest pain which has been constant. She reports fevers as high as 104-105 at home checked orally. She reports today she has also developed generalized abdominal pain, muscle spasms, hemoptysis. She reports a history of asthma with no other significant past medical history. 09/02: The patient was noted to be tachypnea , respiratory rate 40s and shallow , as well as tachycardic and hypotensive phenylephrine infusing at 50 mcgs.the patient was emergently intubated 1 attempt ABGs revealed metabolic and respiratory acidosis with a pH of 7.18 .Possible septic emboli noted on chest x -ray. Multiple bilateral lung masses. Stat CT thorax pending, no angiogram / elevated creatinine. Sodium bicarbonate infusion initiated. 09/03: Diffuse bilateral lung consolidations with destruction - typical of Staph. This looks like tricuspid valve endocarditis. She remains floridly septic and requiring multiple vasopressors to maintain acceptable blood pressure. 09/04: Continued florid sepsis. Very poor nutritional status with prealbumin < 3. Lung destruction apparent on CT scan and ongoing bloody secretions. 09/05: As suspected, BIN confirms tricuspid valve endocarditis. Bloody sputum reflects lung destruction from Staph pneumonia. 09/05(1555 hours): Patient continues to deteriorate despite maximum vasopressor support and good antibiotic coverage. Hemorrhagic pneumonia persists, typical of Staph infection in lungs. CT scan of chest revealed multiple areas of lung destruction on admission. I have discussed the care with her father and step- mother at the bedside. They appreciate her continued deterioration. They have asked to make her DNR status at this point and assure that she is not in pain. We have all agreed to continue her fentanyl infusion so that she does not cough on the endotracheal tube again like she did last night. 09/06: Ongoing septic course with continued bloody secretions from lungs. No improvement in hemodynamics. 09/07: Continued lung destruction reflected by bloody sputum and CXR. Anuric now. Multisystem organ failure has developed; prognosis grave. 09/08: Family has requested to stop all antibiotics and vasopressors. Objective Vital Signs Date Time Temp Pulse Resp B/P (MAP) Pulse Ox O2 Delivery O2 Flow Rate FiO2 09/08/17 09:55 100 40 09/08/17 08:00 111 09/08/17 08:00 99.1 33 133/64 (87) 09/08/17 07:00 Mechanical Ventilator 09/06/17 19:00 6.00 Intake and Output 09/08/17 09/08/17 09/09/17 08:00 16:00 00:00 Intake Total 171 ml 50 ml Output Total 50 ml Balance 121 ml 50 ml Result Diagram: 09/08/17 0520 09/08/17 05 Imaging Last Impressions Abdomen/Pelvis CT 09/01/171814 Signed Impressions: Service Date/Time: Friday, September 01, 2017 19:37 - CONCLUSION: 1. Multiple prominent areas of consolidation at the lung bases. Several of these have a rounded configuration raising possibility of septic emboli. Diffuse infection could have a similar appearance. 2. Mild proximal spleen. 3. 5.9 center cystic area in the right adnexa likely related to right ovarian cyst. 4. Mild to moderate dilatation of the collecting systems bilaterally. The ureters do not appear distended. Lorenzo Perez MD Chest X-Ray 09/01/17 1642 Signed Impressions: Service Date/Time: Friday, September 01, 2017 17:20 - CONCLUSION: 1. Abnormal examination demonstrating multiple bilateral apparent lung masses. Findings are concerning for septic emboli in this young patient although differential considerations include metastatic disease. There is a CT examination of the chest pending. Bereket Pozo MD Objective Remarks GENERAL: Ill-appearing woman, septic, flushed, hypotensive. SKIN: Warm and dry. Multiple punctate lesions over trunk and extremities. HEAD: Normocephalic. EYES: No scleral icterus. Moderate injection. NECK: Supple, trachea midline.Orally intubated. CARDIOVASCULAR: Regular rate and rhythm without murmurs, gallops, or rubs. No JVD. RESPIRATORY: Breath sounds equal bilaterally. Diffuse rhonchi. Acceptable vamshi air movement. Bloody dark secretions. GASTROINTESTINAL: Abdomen soft, non-tender, nondistended. No bowel sounds. No guarding. MUSCULOSKELETAL: No cyanosis. 1+ edema. Tepid. Poorly perfused. NEURO EXAM: Cough, gag intact. No other response. Procedures 09/02-CT angiogram pulmonary 09/02- transthoracic echocardiogram Date of Insertion: Sep 02, 2017 Line: Central Venous Catheter Side: Right Location: Subclavian A/P Assessment and Plan Metabolic Encephalopathy 2/2 sepsis Toxic Encephalopathy- Cocaine, Amphetamines Neuro checks per ICU Protocol F/U MRI brain 01/01 septic emboli Obtain Echo -> TV Endocarditis. Hemoptysis Acute hypercapnic and hypoxemic respiratory failure - Pulmonary septic emboli - Blood cultures - Broad-spectrum antibiotics -> narrowed to MSSA coverage. - Infectious disease consulted - De-escalate per sensitivity -09/02 intubated 7.5 at 22cm @lip -Obtain sputum culture -Obtain CT chest-unable to do angiogram secondary to elevated creatinine -Versed and fentanyl infusions for ventilator synchrony - Do not hold sedation for neuro assessment per family request. - No transfusion for now. Family wants no escalation of care. Myalgias and fevers Septic shock Metabolic acidosis - Broad-spectrum antibiotics -Obtain stat 2-D echo to rule out endocarditis at the patient with a history of IVDU - Tylenol when necessary for fevers -Follow-up blood , urine and sputum cultures- blood gram-positive bacteremia. Vancomycin, Zosyn initiated -> narrow per ID. Acute kidney injury Dehydration -Insert [place] - IV fluid resuscitation - Strict I's and O's - Monitor creatinine and electrolytes - Anuric 09/07. Likely ATN. IVDU - Monitor for withdrawal - Morphine [place] and Ativan when necessary - Seizure precautions Hyperglycemia critical illness DVT GI prophylaxis - Teds SCDs - Hold pharmacological DVT prophylaxis due to hemoptysis - Pepcid Protein Calorie Malnutrition - Prealbumin < 3 09/04 Critical Care: Left subclavian line Placed left radial art line placed patient emergently intubated. Overall impression: Critically ill woman requiring markedly elevated ventilator settings to oxygenate. Floridly septic with Staph bacteremia and pneumonia. Lung destruction apparent. Doubt she can survive this disease process. Continues to decline and family has now instituted DNR. I spoke at length with her father and sister again today. They understand the poor prognosis. They have elected for withdrawal of medical therapy. Still want ventilator support. Critical care 35 mins Sachin Goodson MD Sep 08, 2017 12:11
[2017-09-08] MEDS ORDERED: HYDROmorphone HCL PF 2 MG/ML VIAL IV PUSH PRN (15:15)
[2017-09-08] MEDS ORDERED: LORazepam 2 MG/ML VIAL IV PUSH PRN (15:15)
[2017-09-08] MEDS: LORazepam 2 MG/ML VIAL IV PUSH PRN (16:25)
--- NOTE | 2017-09-08 17:56 | HHI.PR ---
Addendum to Inpatient Note Addendum Reason: Additional Documentation Additional Information informed me yday and stopped antibiotics today per family decision to stop all antibiotics. Will sign off please call back if any change in clinical condition or plan. Jada Zamudio MD Sep 08, 2017 17:56
[2017-09-08] MEDS: RESP: ALBUTEROL 2.5 MG/IPRATROPIUM 0.5 MG NEB (PRN) INH (20:23)
[2017-09-08] MEDS: MIDAZOLAM 100 MG/100 ML INJ 100 ML IV PRN (20:29)
[2017-09-09] VITALS (14 sets, daily range): BP systolic 107–113; BP diastolic 57–64; PULSE 61–116; RESP 15–44; TEMP 98.1–100; O2SAT 97–100
[2017-09-09] MEDS: CHLORHEXIDINE GLUCONATE 2 % 1 PACK (2 CLOTHS) TOP SCH (04:00)
[2017-09-09] MEDS: fentaNYL DRIP 250 ML IV PRN ×2 (07:03→08:45)
[2017-09-09] MEDS: MIDAZOLAM 100 MG/100 ML INJ 100 ML IV PRN (08:44)
[2017-09-09] MEDS: DOCUSATE SODIUM 50 MG/SENNA 8.6 MG TAB PO SCH ×2 (08:44→21:00)
[2017-09-09] MEDS: SODIUM CHLORIDE 0.9% FLUSH 10 ML FLUSH IV FLUSH SCH ×2 (08:45→21:00)
--- NOTE | 2017-09-09 14:19 | HHI.HCPN ---
Reason for visit a. To assist with evaluation and management of symptoms including:pain b. To assist medical decision maker(s) with: better understanding of current medical conditions; weighing benefits/burdens of medical treatment options; making medical treatment decisions. Subjective/Interval History Pt continue to be mechanically ventilated and have overwhelming sepsis. Pt have secretions, suctioned 4 times today. No grimacing gagging or coughing on my visit, appears comfortable. Pt's cousin at bedside. Family/friend interactions I spoke with pt's Father, reaffirm comfort measures, and no escalation of care. Again told clarified prognosis of hours to days. He states if pt is still with us tomorrow, he would consider compassionate with draw of the ventilator. Discussed about secretions, renal failure and tube feedings, he was amenable to stop it. Advance Directives Living Will: Never completed Health Care Surrogate: Never completed Durable Power of Liquid Flavor Compounder: Never completed Objective Vital Signs Date Time Temp Pulse Resp B/P (MAP) Pulse Ox O2 Delivery O2 Flow Rate FiO2 09/09/17 11:38 99 40 09/09/17 06:00 110 09/09/17 04:28 100 40 09/09/17 04:00 40 09/09/17 04:00 99.0 109 25 109/58 (75) 100 Arterial Line 09/09/17 04:00 109 09/09/17 02:00 108 09/09/17 00:55 99 40 09/09/17 00:00 40 09/09/17 00:00 107 09/09/17 00:00 98.1 107 25 107/58 (74) 100 09/08/17 22:26 100 40 09/08/17 22:00 106 09/08/17 20:11 100 40 09/08/17 20:00 103 09/08/17 20:00 98.3 103 31 100 93/82 (86) 09/08/17 20:00 40 09/08/17 19:00 100 Mechanical Ventilator 40 09/08/17 18:00 103 09/08/17 17:43 100 40 09/08/17 16:00 40 09/08/17 16:00 111 09/08/17 16:00 99.0 111 33 97 123/84 (97) Intake & Output 09/09/17 09/09/17 06:59 18:59 Intake Total 359 ml Output Total 20 ml Balance 339 ml IV Total 359 ml Output Urine Total 20 ml # Bowel Movements 0 Physical Exam CONSTITUTIONAL/GENERAL: This is frail young lady, intubated, more comfortable currently. TUBES/LINES/DRAINS:right sublavian central line. rajput, piv, endotrachial tube. SKIN: No jaundice, rashes, or lesions. Ecchymoses on upper extremities. HEAD: Atraumatic. Normocephalic. EYES: eyes close on my visit and I did not force open. ENT: Hearing grossly normal. Nose without bleeding or purulent drainage. Throat ET tube inplace, hemoptysis. NECK: Trachea midline. Supple, nontender. CARDIOVASCULAR: Regular rate and rhythm without murmurs, gallops, or rubs. No JVD. RESPIRATORY/CHEST: Symmetric, ronchi on ascutation on all lung mishra, bloody dark secretions. GASTROINTESTINAL: Abdomen soft, non-tender, nondistended. No hepato-splenomegaly , or palpable masses. No guarding. Bowel sounds present. GENITOURINARY: Without palpable bladder distension. Rajput catheter in place. MUSCULOSKELETAL: ext edematous, LYMPHATICS: No palpable cervical or supraclavicular adenopathy. NEUROLOGICAL: non responsive.. Diagnostic Tests Laboratory Laboratory Tests Test 09/06/17 17:45 09/07/17 08:50 09/07/17 09:10 09/08/17 05:20 Hepatitis A IgM Antibody NEGATIVE (NEGATIVE) Hepatitis B Surface Antigen NEGATIVE (NEGATIVE) Hepatitis B Core IgM Antibody NEGATIVE (NEGATIVE) Hepatitis C Antibody REACTIVE (NEGATIVE) HIV (1&2) Antibody NEGATIVE (NEGATIVE) Blood Gas Puncture Site ART LINE Blood Gas Patient Temperature 98.6 Blood Gas HCO3 14 mmol/L (22-26) Blood Gas Base Excess -11.3 mmol/L (-2-2) Blood Gas Oxygen Saturation 95 % (90-100) Arterial Blood pH 7.26 (7.380-7.420) Arterial Blood Partial Pressure CO2 33 mmHg (38-42) Arterial Blood Partial Pressure O2 101 mmHg (61-120) Arterial Blood Oxygen Content 11.8 Vol % (12.0-20.0) Arterial Blood Carboxyhemoglobin 1.7 % (0-4) Arterial Blood Methemoglobin 0.5 % (0-2) Blood Gas Hemoglobin 8.8 G/DL (12.0-16.0) Oxygen Delivery Device VENTILATOR Blood Gas Ventilator Setting Blood Gas Inspired Oxygen 40 % White Blood Count 9.9 TH/MM3 (4.0-11.0) 9.5 TH/MM3 (4.0-11.0) Red Blood Count 2.09 MIL/MM3 (4.00-5.30) 1.97 MIL/MM3 (4.00-5.30) Hemoglobin 6.0 GM/DL (11.6-15.3) 5.7 GM/DL (11.6-15.3) Hematocrit 18.3 % (35.0-46.0) 17.5 % (35.0-46.0) Mean Corpuscular Volume 87.7 FL (80.0-100.0) 88.8 FL (80.0-100.0) Mean Corpuscular Hemoglobin 28.9 PG (27.0-34.0) 29.2 PG (27.0-34.0) Mean Corpuscular Hemoglobin Concent 32.9 % (32.0-36.0) 32.8 % (32.0-36.0) Red Cell Distribution Width 15.7 % (11.6-17.2) 15.7 % (11.6-17.2) Platelet Count 117 TH/MM3 (150-450) 130 TH/MM3 (150-450) Mean Platelet Volume 10.0 FL (7.0-11.0) 9.9 FL (7.0-11.0) Neutrophils (%) (Auto) 84.1 % (16.0-70.0) 82.9 % (16.0-70.0) Lymphocytes (%) (Auto) 10.3 % (9.0-44.0) 11.6 % (9.0-44.0) Monocytes (%) (Auto) 2.4 % (0.0-8.0) 3.2 % (0.0-8.0) Eosinophils (%) (Auto) 2.5 % (0.0-4.0) 2.0 % (0.0-4.0) Basophils (%) (Auto) 0.7 % (0.0-2.0) 0.3 % (0.0-2.0) Neutrophils # (Auto) 8.3 TH/MM3 (1.8-7.7) 7.9 TH/MM3 (1.8-7.7) Lymphocytes # (Auto) 1.0 TH/MM3 (1.0-4.8) 1.1 TH/MM3 (1.0-4.8) Monocytes # (Auto) 0.2 TH/MM3 (0-0.9) 0.3 TH/MM3 (0-0.9) Eosinophils # (Auto) 0.2 TH/MM3 (0-0.4) 0.2 TH/MM3 (0-0.4) Basophils # (Auto) 0.1 TH/MM3 (0-0.2) 0.0 TH/MM3 (0-0.2) CBC Comment AUTO DIFF DIFF FINAL Differential Comment AUTO DIFF CONFIRMED Blood Urea Nitrogen 102 MG/DL (7-18) Creatinine 6.60 MG/DL (0.50-1.00) Random Glucose 103 MG/DL (74-106) Total Protein 6.3 GM/DL (6.4-8.2) Albumin 0.9 GM/DL (3.4-5.0) Calcium Level 7.9 MG/DL (8.5-10.1) Alkaline Phosphatase 91 U/L (45-117) Aspartate Amino Transf (AST/SGOT) 15 U/L (15-37) Alanine Aminotransferase (ALT/SGPT) LESS THAN 6 U/L (10-53) Total Bilirubin 0.2 MG/DL (0.2-1.0) Sodium Level 148 MEQ/L (136-145) Potassium Level 5.3 MEQ/L (3.5-5.1) Chloride Level 120 MEQ/L (98-107) Carbon Dioxide Level 16.6 MEQ/L (21.0-32.0) Anion Gap 11 MEQ/L (5-15) Estimat Glomerular Filtration Rate 7 ML/MIN (>89) Lactic Acid Level 1.9 mmol/L (0.4-2.0) Result Diagram: 09/08/1751909/08/17519 Assessment and Plan Disease Oriented Problem List: (1) Severe sepsis (2) Septic embolism (3) IV drug abuse (4) Renal failure Comment: sepsis (5) Respiratory failure Symptom Scale: Pertinent Non-Medical Issues Psychosocial: Spiritual: Legal: Ethical issues impacting care: Important Contacts Father Balaji Valencia [phone] Mother Michelle Colon [phone] Prognosis 27 year old with endocarditis, severe sepsis, renal failure, hemodynamically unstable. Prognosis is poor. Code Status: No Code Plan == Code- DNR/DNI == capacity to make medical decisions: none. == health care proxy.- pt not no adult children. Pt's proxy is Ángel Valencia (father) Mother has not participated in decision making and have not called back, despite me leaving voicemail with my phone number. == Goals of care: Pt gagging and uncomfortable I pointed this out to pt's father, and had discussion about comfort meds. He stated . He states no abx, no pressors or further escalation of care. He understands pt will not survive current hospitalization. Pt's father decided to d/c tube feeding. Tomorrow, father will consider compassionate withdraw from ventilator. ==symptom of discomfort: dyspnea, pain, anxiety- family amenable to comfort meds == d/w with attending physician Informed possible compassionate withdraw from ventilator. Exhibts B and C prepared. == palliative care will continue to follow. Time Spent Total Floor Time (mins): 20 Face to Face Time (mins): 35 Attestation To help prompt me to consider important information that might be impacting today's encounter and assessment, information from prior notes written by myself or my colleagues may have been "brought forward" into today's note. My signature on this note, however, is an attestation that I personally performed the exam, history, and/or decision-making noted today, and, unless otherwise indicated, the interactions with patient, family, and staff as well as the review of records all occurred today. I also attest that the listed assessment and stated plan reflect my best clinical judgment today based on the combination of historical information, prior notes, and today's exam/ interactions. When time spent is documented, it refers only to time spent today by the signer, or if indicated, combined time spent today by collaborating physician/nurse practitioner. Tariq Benitez MD Sep 09, 2017 14:19
--- NOTE | 2017-09-09 15:22 | HHI.CCPN ---
Subjective Remarks/Hospital Course 27-year-old very pleasant female with history of IV drug abuse, last use Dilaudid 5 days ago, visiting here from [place], presents for evaluation of having myalgias and substernal sharp chest pain which has been constant. She reports fevers as high as 104-105 at home checked orally. She reports today she has also developed generalized abdominal pain, muscle spasms, hemoptysis. She reports a history of asthma with no other significant past medical history. 09/02: The patient was noted to be tachypnea , respiratory rate 40s and shallow , as well as tachycardic and hypotensive phenylephrine infusing at 50 mcgs.the patient was emergently intubated 1 attempt ABGs revealed metabolic and respiratory acidosis with a pH of 7.18 .Possible septic emboli noted on chest x -ray. Multiple bilateral lung masses. Stat CT thorax pending, no angiogram / elevated creatinine. Sodium bicarbonate infusion initiated. 09/03: Diffuse bilateral lung consolidations with destruction - typical of Staph. This looks like tricuspid valve endocarditis. She remains floridly septic and requiring multiple vasopressors to maintain acceptable blood pressure. 09/04: Continued florid sepsis. Very poor nutritional status with prealbumin < 3. Lung destruction apparent on CT scan and ongoing bloody secretions. 09/05: As suspected, BIN confirms tricuspid valve endocarditis. Bloody sputum reflects lung destruction from Staph pneumonia. 09/05(1555 hours): Patient continues to deteriorate despite maximum vasopressor support and good antibiotic coverage. Hemorrhagic pneumonia persists, typical of Staph infection in lungs. CT scan of chest revealed multiple areas of lung destruction on admission. I have discussed the care with her father and step- mother at the bedside. They appreciate her continued deterioration. They have asked to make her DNR status at this point and assure that she is not in pain. We have all agreed to continue her fentanyl infusion so that she does not cough on the endotracheal tube again like she did last night. 09/06: Ongoing septic course with continued bloody secretions from lungs. No improvement in hemodynamics. 09/07: Continued lung destruction reflected by bloody sputum and CXR. Anuric now. Multisystem organ failure has developed; prognosis grave. 09/08: Family has requested to stop all antibiotics and vasopressors. 09/09: Family is considering compassionate extubation soon, possibly tomorrow. They have discussed this eventuate at length with Dr. Benitez and kely questions have been answered. The amount of lung destruction coupled with active endocarditis and anuric renal failure precludes recovery from this disease process. Objective Vital Signs Date Time Temp Pulse Resp B/P (MAP) Pulse Ox O2 Delivery O2 Flow Rate FiO2 09/09/17 11:38 99 40 09/09/17 06:00 110 09/09/17 04:00 99.0 25 109/58 (75) Arterial Line 09/08/17 19:00 Mechanical Ventilator 09/06/17 19:00 6.00 Intake and Output 09/09/17 09/09/17 09/10/17 08:00 16:00 00:00 Intake Total 359 ml Output Total 20 ml Balance 339 ml Result Diagram: 09/08/1751909/08/17519 Imaging Last Impressions Abdomen/Pelvis CT 09/01/171814 Signed Impressions: Service Date/Time: Friday, September 01, 2017 19:37 - CONCLUSION: 1. Multiple prominent areas of consolidation at the lung bases. Several of these have a rounded configuration raising possibility of septic emboli. Diffuse infection could have a similar appearance. 2. Mild proximal spleen. 3. 5.9 center cystic area in the right adnexa likely related to right ovarian cyst. 4. Mild to moderate dilatation of the collecting systems bilaterally. The ureters do not appear distended. Lorenzo Perez MD Chest X-Ray 09/01/17 1642 Signed Impressions: Service Date/Time: Friday, September 01, 2017 17:20 - CONCLUSION: 1. Abnormal examination demonstrating multiple bilateral apparent lung masses. Findings are concerning for septic emboli in this young patient although differential considerations include metastatic disease. There is a CT examination of the chest pending. Bereket Pozo MD Objective Remarks GENERAL: Ill-appearing woman, septic, flushed, hypotensive. SKIN: Warm and dry. Multiple punctate lesions over trunk and extremities. HEAD: Normocephalic. EYES: No scleral icterus. Some conjunctival injection. NECK: Supple, trachea midline. Orally intubated. CARDIOVASCULAR: Regular rate and rhythm without murmurs, gallops, or rubs. No JVD. RESPIRATORY: Breath sounds equal bilaterally. Diffuse rhonchi, no obstruction. Acceptable vamshi air movement. Bloody dark secretions persist. GASTROINTESTINAL: Abdomen soft, non-tender, nondistended. Few bowel sounds. No guarding. MUSCULOSKELETAL: No cyanosis. 1+ edema. Tepid. Poorly perfused, cool toes. NEURO EXAM: Cough, gag intact. No other response. Procedures 09/02-CT angiogram pulmonary 09/02- transthoracic echocardiogram Date of Insertion: Sep 02, 2017 Line: Central Venous Catheter Side: Right Location: Subclavian A/P Assessment and Plan Metabolic Encephalopathy 2/2 sepsis Toxic Encephalopathy- Cocaine, Amphetamines Neuro checks per ICU Protocol F/U MRI brain 01/01 septic emboli Obtain Echo -> TV Endocarditis. Hemoptysis Acute hypercapnic and hypoxemic respiratory failure - Pulmonary septic emboli - Blood cultures - Broad-spectrum antibiotics -> narrowed to MSSA coverage. - Infectious disease consulted - De-escalate per sensitivity -09/02 intubated 7.5 at 22cm @lip -Obtain sputum culture -Obtain CT chest-unable to do angiogram secondary to elevated creatinine -Versed and fentanyl infusions for ventilator synchrony - Do not hold sedation for neuro assessment per family request. - No transfusion for now. Family wants no escalation of care. Myalgias and fevers Septic shock Metabolic acidosis - Broad-spectrum antibiotics -Obtain stat 2-D echo to rule out endocarditis at the patient with a history of IVDU - Tylenol when necessary for fevers -Follow-up blood , urine and sputum cultures- blood gram-positive bacteremia. Vancomycin, Zosyn initiated -> narrow per ID. Acute kidney injury Dehydration -Insert [place] - IV fluid resuscitation - Strict I's and O's - Monitor creatinine and electrolytes - Anuric 09/07. Likely ATN. IVDU - Monitor for withdrawal - Morphine [place] and Ativan when necessary - Seizure precautions Hyperglycemia critical illness DVT GI prophylaxis - Teds SCDs - Hold pharmacological DVT prophylaxis due to hemoptysis - Pepcid Protein Calorie Malnutrition - Prealbumin < 3 09/04 Critical Care: Left subclavian line Placed left radial art line placed patient emergently intubated. Overall impression: Critically ill woman requiring markedly elevated ventilator settings to oxygenate. Floridly septic with Staph bacteremia and pneumonia. Lung destruction apparent. Doubt she can survive this disease process. Continues to decline and family has now instituted DNR. Family understand the poor prognosis. They have elected for withdrawal of medical therapy. Still want ventilator support but considering compassionate extubation tomorrow. Sachin Goodson MD Sep 09, 2017 15:22
[2017-09-10] VITALS (10 sets, daily range): BP systolic 93–105; BP diastolic 46–59; PULSE 96–110; RESP 21–25; TEMP 97.7–98.4; O2SAT 99–100
[2017-09-10] MEDS: MIDAZOLAM 100 MG/100 ML INJ 100 ML IV PRN ×3 (02:35→20:34)
[2017-09-10] MEDS: CHLORHEXIDINE GLUCONATE 2 % 1 PACK (2 CLOTHS) TOP SCH (04:00)
[2017-09-10] MEDS: SODIUM CHLORIDE 0.9% FLUSH 10 ML FLUSH IV FLUSH SCH (08:07)
[2017-09-10] MEDS: DOCUSATE SODIUM 50 MG/SENNA 8.6 MG TAB PO SCH ×2 (08:07→21:00)
--- NOTE | 2017-09-10 08:24 | HHI.CCPN ---
Subjective Remarks/Hospital Course 27-year-old very pleasant female with history of IV drug abuse, last use Dilaudid 5 days ago, visiting here from [place], presents for evaluation of having myalgias and substernal sharp chest pain which has been constant. She reports fevers as high as 104-105 at home checked orally. She reports today she has also developed generalized abdominal pain, muscle spasms, hemoptysis. She reports a history of asthma with no other significant past medical history. 09/02: The patient was noted to be tachypnea , respiratory rate 40s and shallow , as well as tachycardic and hypotensive phenylephrine infusing at 50 mcgs.the patient was emergently intubated 1 attempt ABGs revealed metabolic and respiratory acidosis with a pH of 7.18 .Possible septic emboli noted on chest x -ray. Multiple bilateral lung masses. Stat CT thorax pending, no angiogram / elevated creatinine. Sodium bicarbonate infusion initiated. 09/03: Diffuse bilateral lung consolidations with destruction - typical of Staph. This looks like tricuspid valve endocarditis. She remains floridly septic and requiring multiple vasopressors to maintain acceptable blood pressure. 09/04: Continued florid sepsis. Very poor nutritional status with prealbumin < 3. Lung destruction apparent on CT scan and ongoing bloody secretions. 09/05: As suspected, BIN confirms tricuspid valve endocarditis. Bloody sputum reflects lung destruction from Staph pneumonia. 09/05(1555 hours): Patient continues to deteriorate despite maximum vasopressor support and good antibiotic coverage. Hemorrhagic pneumonia persists, typical of Staph infection in lungs. CT scan of chest revealed multiple areas of lung destruction on admission. I have discussed the care with her father and step- mother at the bedside. They appreciate her continued deterioration. They have asked to make her DNR status at this point and assure that she is not in pain. We have all agreed to continue her fentanyl infusion so that she does not cough on the endotracheal tube again like she did last night. 09/06: Ongoing septic course with continued bloody secretions from lungs. No improvement in hemodynamics. 09/07: Continued lung destruction reflected by bloody sputum and CXR. Anuric now. Multisystem organ failure has developed; prognosis grave. 09/08: Family has requested to stop all antibiotics and vasopressors. 09/09: Family is considering compassionate extubation soon, possibly tomorrow. They have discussed this eventuate at length with Dr. Benitez and kely questions have been answered. The amount of lung destruction coupled with active endocarditis and anuric renal failure precludes recovery from this disease process. 09/10: Family considering compassionate extubation today. OG tube removed this am. Still with copious oral secretions. Afebrile. Objective Vital Signs Date Time Temp Pulse Resp B/P (MAP) Pulse Ox O2 Delivery O2 Flow Rate FiO2 09/10/17 08:00 97.7 102 25 101/52 (68) 100 09/10/17 08:00 40 09/10/17 07:00 Mechanical Ventilator 09/06/17 19:00 6.00 Intake and Output 09/10/17 09/10/17 09/10/17 07:59 15:59 23:59 Intake Total 100 ml Output Total 35 ml Balance 65 ml Result Diagram: 09/08/1751909/08/17519 Other Results Microbiology Date/Time Source Procedure Growth Status 09/03/17 04:30 Blood Peripheral Aerobic Blood Culture - Final Staphylococcus Aureus Complete 09/03/17 04:30 Blood Peripheral Anaerobic Blood Culture - Final NO GROWTH IN 5 DAYS Complete 09/03/17 16:40 Sputum Endotracheal Gram Stain - Final Complete 09/03/17 16:40 Sputum Culture - Final Staphylococcus Aureus Complete 09/01/17 20:30 Urine Catheterized Urine Legionella Antigen - Final PRESUMPTIVE NEGATIVE FOR LEGIONELLA P... Complete 09/01/17 20:30 Urine Catheterized Urine Streptococcus pneumoniae Antigen (M - Final PRESUMPTIVE NEGATIVE FOR STREPTOCOCCU... Complete Objective Remarks GENERAL: Ill-appearing woman, septic, flushed, hypotensive. SKIN: Warm and dry. Multiple punctate lesions over trunk and extremities. HEAD: Normocephalic. EYES: No scleral icterus. Some conjunctival injection. NECK: Supple, trachea midline. Orally intubated. CARDIOVASCULAR: Regular rate and rhythm without murmurs, gallops, or rubs. No JVD. RESPIRATORY: Breath sounds equal bilaterally. Diffuse rhonchi, no obstruction. Acceptable vamshi air movement. Bloody dark secretions persist. GASTROINTESTINAL: Abdomen soft, non-tender, nondistended. Few bowel sounds. No guarding. MUSCULOSKELETAL: No cyanosis. 1+ edema. Tepid. Poorly perfused, cool toes. NEURO EXAM: Cough, gag intact. No other response. Procedures 09/02-CT angiogram pulmonary 09/02- transthoracic echocardiogram Date of Insertion: Sep 02, 2017 Line: Central Venous Catheter Side: Right Location: Subclavian A/P Assessment and Plan Metabolic Encephalopathy 2/2 sepsis Toxic Encephalopathy- Cocaine, Amphetamines Neuro checks per ICU Protocol F/U MRI brain 01/01 septic emboli Obtain Echo -> TV Endocarditis. Hemoptysis Acute hypercapnic and hypoxemic respiratory failure - Pulmonary septic emboli - Blood cultures - Broad-spectrum antibiotics -> narrowed to MSSA coverage. - Infectious disease consulted - De-escalate per sensitivity -09/02 intubated 7.5 at 22cm @lip -Obtain sputum culture -Obtain CT chest-unable to do angiogram secondary to elevated creatinine -Versed and fentanyl infusions for ventilator synchrony - Do not hold sedation for neuro assessment per family request. - No transfusion for now. Family wants no escalation of care. Myalgias and fevers Septic shock Metabolic acidosis - Broad-spectrum antibiotics -Obtain stat 2-D echo to rule out endocarditis at the patient with a history of IVDU - Tylenol when necessary for fevers -Follow-up blood , urine and sputum cultures- blood gram-positive bacteremia. Vancomycin, Zosyn initiated -> narrow per ID. Acute kidney injury Dehydration -Insert [place] - IV fluid resuscitation - Strict I's and O's - Monitor creatinine and electrolytes - Anuric 09/07. Likely ATN. IVDU - Monitor for withdrawal - Morphine Otisco and Ativan when necessary - Seizure precautions Hyperglycemia critical illness DVT GI prophylaxis - Teds SCDs - Hold pharmacological DVT prophylaxis due to hemoptysis - Pepcid Protein Calorie Malnutrition - Prealbumin < 3 09/04 Critical Care: Left subclavian line Placed left radial art line placed patient emergently intubated. Overall impression: Critically ill woman requiring markedly elevated ventilator settings to oxygenate. Floridly septic with Staph bacteremia and pneumonia. Lung destruction apparent. Doubt she can survive this disease process. Continues to decline and family has now instituted DNR. Family understand the poor prognosis. They have elected for withdrawal of medical therapy. Still want ventilator support but considering compassionate extubation tomorrow. Javier Carter MD Sep 10, 2017 08:24
[2017-09-10] MEDS ORDERED: HYOSCYAMINE SOLN 0.125 MG/ML 15 ML BTL PO PRN (08:30)
--- NOTE | 2017-09-10 10:25 | HHI.HCPN ---
Reason for visit a. To assist with evaluation and management of symptoms including:pain, dyspnea and anxiety b. To assist medical decision maker(s) with: better understanding of current medical conditions; weighing benefits/burdens of medical treatment options; making medical treatment decisions. Subjective/Interval History Pt continue to be mechanically ventilated. Peaceful family in the room. Family/friend interactions Met with pt's Father, pt's sisters, pt's grandmother, pt's cousin. Decision is for extubation and full transitiont to comfort only. Advance Directives Living Will: Never completed Health Care Surrogate: Never completed Durable Power of Cnc Manager: Never completed Objective Vital Signs Date Time Temp Pulse Resp B/P (MAP) Pulse Ox O2 Delivery O2 Flow Rate FiO2 09/10/17 08:00 97.7 102 25 101/52 (68) 100 09/10/17 08:00 40 09/10/17 07:37 100 40 09/10/17 07:00 100 Mechanical Ventilator 40 09/10/17 06:00 110 09/10/17 04:25 100 40 09/10/17 04:00 98.4 97 24 93/46 (62) 99 09/10/17 04:00 96 09/10/17 04:00 40 09/10/17 02:00 103 09/10/17 01:29 100 40 09/10/17 00:00 107 09/10/17 00:00 40 09/10/17 00:00 98.4 107 21 105/59 (74) 100 09/09/17 22:00 111 09/09/17 20:16 99 40 09/09/17 20:00 40 09/09/17 20:00 99.1 115 15 113/63 (80) 99 09/09/17 20:00 114 09/09/17 19:00 100 Mechanical Ventilator 40 09/09/17 16:00 100.0 116 44 108/57 (74) 98 09/09/17 16:00 40 09/09/17 15:55 98 40 09/09/17 12:00 99.2 116 16 108/64 (79) 97 09/09/17 12:00 40 09/09/17 11:38 99 40 Intake & Output 09/10/17 09/10/17 07:00 19:00 Intake Total 100 ml Output Total 35 ml Balance 65 ml IV Total 100 ml Output Urine Total 35 ml # Bowel Movements 1 Physical Exam CONSTITUTIONAL/GENERAL: This is frail young lady, intubated, comfortable TUBES/LINES/DRAINS:right sublavian central line. rajput, piv, endotrachial tube. SKIN: No jaundice, rashes, or lesions. Ecchymoses on upper extremities. HEAD: Atraumatic. Normocephalic. EYES: eyes close on my visit and I did not force open. ENT: Hearing grossly normal. Nose without bleeding or purulent drainage. Throat ET tube inplace, hemoptysis. NECK: Trachea midline. Supple, nontender. CARDIOVASCULAR: Regular rate and rhythm without murmurs, gallops, or rubs. No JVD. RESPIRATORY/CHEST: Symmetric, ronchi on ascutation on all lung mishra, bloody dark secretions. GASTROINTESTINAL: Abdomen soft, non-tender, nondistended. No hepato-splenomegaly , or palpable masses. No guarding. Bowel sounds present. GENITOURINARY: Without palpable bladder distension. Rajput catheter in place. MUSCULOSKELETAL: ext edematous, LYMPHATICS: No palpable cervical or supraclavicular adenopathy. NEUROLOGICAL: non responsive.. Diagnostic Tests Laboratory Laboratory Tests Test 09/08/17 05:20 White Blood Count 9.5 TH/MM3 (4.0-11.0) Red Blood Count 1.97 MIL/MM3 (4.00-5.30) Hemoglobin 5.7 GM/DL (11.6-15.3) Hematocrit 17.5 % (35.0-46.0) Mean Corpuscular Volume 88.8 FL (80.0-100.0) Mean Corpuscular Hemoglobin 29.2 PG (27.0-34.0) Mean Corpuscular Hemoglobin Concent 32.8 % (32.0-36.0) Red Cell Distribution Width 15.7 % (11.6-17.2) Platelet Count 130 TH/MM3 (150-450) Mean Platelet Volume 9.9 FL (7.0-11.0) Neutrophils (%) (Auto) 82.9 % (16.0-70.0) Lymphocytes (%) (Auto) 11.6 % (9.0-44.0) Monocytes (%) (Auto) 3.2 % (0.0-8.0) Eosinophils (%) (Auto) 2.0 % (0.0-4.0) Basophils (%) (Auto) 0.3 % (0.0-2.0) Neutrophils # (Auto) 7.9 TH/MM3 (1.8-7.7) Lymphocytes # (Auto) 1.1 TH/MM3 (1.0-4.8) Monocytes # (Auto) 0.3 TH/MM3 (0-0.9) Eosinophils # (Auto) 0.2 TH/MM3 (0-0.4) Basophils # (Auto) 0.0 TH/MM3 (0-0.2) CBC Comment DIFF FINAL Differential Comment Blood Urea Nitrogen 102 MG/DL (7-18) Creatinine 6.60 MG/DL (0.50-1.00) Random Glucose 103 MG/DL (74-106) Total Protein 6.3 GM/DL (6.4-8.2) Albumin 0.9 GM/DL (3.4-5.0) Calcium Level 7.9 MG/DL (8.5-10.1) Alkaline Phosphatase 91 U/L (45-117) Aspartate Amino Transf (AST/SGOT) 15 U/L (15-37) Alanine Aminotransferase (ALT/SGPT) LESS THAN 6 U/L (10-53) Total Bilirubin 0.2 MG/DL (0.2-1.0) Sodium Level 148 MEQ/L (136-145) Potassium Level 5.3 MEQ/L (3.5-5.1) Chloride Level 120 MEQ/L (98-107) Carbon Dioxide Level 16.6 MEQ/L (21.0-32.0) Anion Gap 11 MEQ/L (5-15) Estimat Glomerular Filtration Rate 7 ML/MIN (>89) Lactic Acid Level 1.9 mmol/L (0.4-2.0) Result Diagram: 09/08/1751909/08/1720 Imaging Last Impressions Chest X-Ray 09/07/17 0400 Signed Impressions: Service Date/Time: Thursday, September 07, 2017 04:41 - CONCLUSION: Bilateral infiltrates showing signs of cavitation. Lorenzo Junior MD Chest CT 09/02/17 0000 Signed Impressions: Service Date/Time: Saturday, September 02, 2017 10:00 - CONCLUSION: Extensive bilateral infiltrates. Small effusions. Lorenzo Junior MD Brain MRI 09/02/17 0000 Signed Impressions: Service Date/Time: Saturday, September 02, 2017 17:21 - CONCLUSION: Normal examination. Lorenzo Perez MD Abdomen/Pelvis CT 09/01/17 1815 Signed Impressions: Service Date/Time: Friday, September 01, 2017 19:37 - CONCLUSION: 1. Multiple prominent areas of consolidation at the lung bases. Several of these have a rounded configuration raising possibility of septic emboli. Diffuse infection could have a similar appearance. 2. Mild proximal spleen. 3. 5.9 center cystic area in the right adnexa likely related to right ovarian cyst. 4. Mild to moderate dilatation of the collecting systems bilaterally. The ureters do not appear distended. Lorenzo Perez MD Assessment and Plan Disease Oriented Problem List: (1) Severe sepsis (2) Septic embolism (3) IV drug abuse (4) Renal failure Comment: sepsis (5) Respiratory failure Symptom Scale: Pertinent Non-Medical Issues Psychosocial: Spiritual: Legal: Ethical issues impacting care: Important Contacts Father Balaji Valencia [phone] Mother Michelle Colon [phone] Prognosis 27 year old with endocarditis, severe sepsis, renal failure, hemodynamically unstable. Prognosis is poor. Code Status: No Code Plan == Code- DNR/DNI == capacity to make medical decisions: none. == health care proxy.- pt not no adult children. Pt's proxy is Ángel Valencia (father) Mother has not participated in decision making and have not called back, despite me leaving voicemail with my phone number would not return call. == Goals of care: family decided on compassionate extubation and transition to full comfort measures. ==symptom of discomfort: dyspnea, pain, anxiety- family amenable to comfort meds for transition to comfort measures only. == palliative care will continue to follow. Time Spent Total Floor Time (mins): 45 Face to Face Time (mins): 30 Attestation To help prompt me to consider important information that might be impacting today's encounter and assessment, information from prior notes written by myself or my colleagues may have been "brought forward" into today's note. My signature on this note, however, is an attestation that I personally performed the exam, history, and/or decision-making noted today, and, unless otherwise indicated, the interactions with patient, family, and staff as well as the review of records all occurred today. I also attest that the listed assessment and stated plan reflect my best clinical judgment today based on the combination of historical information, prior notes, and today's exam/ interactions. When time spent is documented, it refers only to time spent today by the signer, or if indicated, combined time spent today by collaborating physician/nurse practitioner. Tariq Benitez MD Sep 10, 2017 10:25
[2017-09-10] MEDS ORDERED: LORazepam 2 MG/ML VIAL IV PUSH ONE ×2 (11:45→12:00)
[2017-09-10] MEDS ORDERED: ACETAMINOPHEN 650 MG SUPP RECTAL PRN (12:15)
[2017-09-10] MEDS ORDERED: LORazepam 2 MG/ML VIAL IV PUSH PRN (12:15)
[2017-09-10] MEDS ORDERED: FUROSEMIDE 20 MG/2 ML VIAL IV PUSH PRN (12:15)
[2017-09-10] MEDS: fentaNYL DRIP 250 ML IV PRN ×2 (13:41→21:00)
[2017-09-10] MEDS ORDERED: HYOSCYAMINE 0.125 MG TAB PO/SL ONE (15:00)
[2017-09-10] MEDS ORDERED: HYDROmorphone HCL PF 2 MG/ML VIAL IV PUSH ONE ×2 (15:00)
[2017-09-10] MEDS ORDERED: FUROSEMIDE 40 MG/4 ML VIAL ONE (15:17)
[2017-09-10] MEDS: LORazepam 2 MG/ML VIAL IV PUSH SCH ×2 (17:41→22:10)
[2017-09-10] MEDS: HYDROmorphone HCL PF 2 MG/ML VIAL IV PUSH PRN ×4 (18:17→22:10)
[2017-09-10] MEDS: LORazepam 2 MG/ML VIAL IV PUSH PRN (19:58)
--- NOTE | 2017-09-11 08:07 | DEATH SUM ---
Summary Demographics Date Pronounced : Sep 10, 2017 Time Of : 2238 Pronounced By: Evette [place] Rn Ann Conner Rn Preliminary Cause of : Other (Endocarditis) Sachin Goodson MD Sep 11, 2017 08:07
--- NOTE | 2017-09-11 08:16 | HHI.DS ---
Discharge Summary Admission Date Sep 01, 2017 at 19:16 Discharge Date: Sep 10, 2017 Admitting Diagnosis septic emboli, severe sepsis, IVDU (1) Septic shock due to Staphylococcus aureus ICD Code: A41.01 - Sepsis due to Methicillin susceptible Staphylococcus aureus ; R65.21 - Severe sepsis with septic shock Diagnosis: Principal (2) Acute hypoxemic respiratory failure ICD Code: J96.01 - Acute respiratory failure with hypoxia Diagnosis: Principal (3) Endocarditis of tricuspid valve ICD Code: I36.8 - Other nonrheumatic tricuspid valve disorders Diagnosis: Principal (4) Endocarditis due to Staphylococcus ICD Code: I33.0 - Acute and subacute infective endocarditis; B95.8 - Unspecified staphylococcus as the cause of diseases classified elsewhere Diagnosis: Principal (5) KASSIDY (acute kidney injury) ICD Code: N17.9 - Acute kidney failure, unspecified Diagnosis: Secondary (6) Acute septic pulmonary embolism without acute cor pulmonale ICD Code: I26.90 - Septic pulmonary embolism without acute cor pulmonale Diagnosis: Secondary (7) Bacteremia due to Staphylococcus aureus ICD Code: R78.81 - Bacteremia Diagnosis: Secondary (8) Pneumonia ICD Code: J18.9 - Pneumonia, unspecified organism Diagnosis: Secondary (9) IVDU (intravenous drug user) ICD Code: F19.90 - Other psychoactive substance use, unspecified, uncomplicated Diagnosis: Secondary Procedures 09/02-CT angiogram pulmonary 09/02- transthoracic echocardiogram Brief History 27-year-old very pleasant female with history of IV drug abuse, last use Dilaudid 5 days ago, visiting here from [place], presents for evaluation of having myalgias and substernal sharp chest pain which has been constant. She reports fevers as high as 104-105 at home checked orally. She reports today she has also developed generalized abdominal pain, muscle spasms, hemoptysis. She reports a history of asthma with no other significant past medical history. CBC/BMP: 09/08/17 0520 09/08/17 0520 Significant Findings Bilateral septic pulmonary embolisms with bilateral lung destruction. Imaging CT Chest. Transthoracic cardiac echo. Transesophageal cardiac echo. PE at Discharge . Transfer Summary Overwhelming sepsis and multisystem organ failure. Continued clinical deterioration throughout the hospitalization. Family elected for withdrawal of artificial support and patient at 2239 hours on 09/10/17. Hospital Course 27-year-old very pleasant female with history of IV drug abuse, last use Dilaudid 5 days ago, visiting here from [place], presents for evaluation of having myalgias and substernal sharp chest pain which has been constant. She reports fevers as high as 104-105 at home checked orally. She reports today she has also developed generalized abdominal pain, muscle spasms, hemoptysis. She reports a history of asthma with no other significant past medical history. 09/02: The patient was noted to be tachypnea , respiratory rate 40s and shallow , as well as tachycardic and hypotensive phenylephrine infusing at 50 mcgs.the patient was emergently intubated 1 attempt ABGs revealed metabolic and respiratory acidosis with a pH of 7.18 .Possible septic emboli noted on chest x -ray. Multiple bilateral lung masses. Stat CT thorax pending, no angiogram 01/01 elevated creatinine. Sodium bicarbonate infusion initiated. 09/03: Diffuse bilateral lung consolidations with destruction - typical of Staph. This looks like tricuspid valve endocarditis. She remains floridly septic and requiring multiple vasopressors to maintain acceptable blood pressure. 09/04: Continued florid sepsis. Very poor nutritional status with prealbumin < 3. Lung destruction apparent on CT scan and ongoing bloody secretions. 09/05: As suspected, BIN confirms tricuspid valve endocarditis. Bloody sputum reflects lung destruction from Staph pneumonia. 09/05(1555 hours): Patient continues to deteriorate despite maximum vasopressor support and good antibiotic coverage. Hemorrhagic pneumonia persists, typical of Staph infection in lungs. CT scan of chest revealed multiple areas of lung destruction on admission. I have discussed the care with her father and step- mother at the bedside. They appreciate her continued deterioration. They have asked to make her DNR status at this point and assure that she is not in pain. We have all agreed to continue her fentanyl infusion so that she does not cough on the endotracheal tube again like she did last night. 09/06: Ongoing septic course with continued bloody secretions from lungs. No improvement in hemodynamics. 09/07: Continued lung destruction reflected by bloody sputum and CXR. Anuric now. Multisystem organ failure has developed; prognosis grave. 09/08: Family has requested to stop all antibiotics and vasopressors. 09/09: Family is considering compassionate extubation soon, possibly tomorrow. They have discussed this eventuate at length with Dr. Benitez and kely questions have been answered. The amount of lung destruction coupled with active endocarditis and anuric renal failure precludes recovery from this disease process. 09/10: Family considering compassionate extubation today. OG tube removed this am. Still with copious oral secretions. Afebrile. Pt Condition on Discharge: Deteriorating Sachin Goodson MD Sep 11, 2017 08:16
== END 2017-09-10 22:39 | disposition expired | DRG 870 ==
LOC: NEPD 16:28 → NEDA 19:16 → N03A 21:05
PROVIDERS: ADMIT Internal Medicine Critical Care Medicine; ATTEND Internal Medicine Critical Care Medicine
PROC: 0BH18EZ Insertion of Endotracheal Airway into Trachea, Via Natural or Artificial Opening Endoscopic (ICD-10-PCS; principal; 2017-09-02)
PROC: 5A1955Z Respiratory Ventilation, Greater than 96 Consecutive Hours (ICD-10-PCS; 2017-09-02)
PROC: 03HY32Z Insertion of Monitoring Device into Upper Artery, Percutaneous Approach (ICD-10-PCS; 2017-09-02)
PROC: 02HV33Z Insertion of Infusion Device into Superior Vena Cava, Percutaneous Approach (ICD-10-PCS; 2017-09-02)
DX: A41.01 Sepsis due to Methicillin susceptible Staphylococcus aureus (principal); I26.90 Septic pulmonary embolism without acute cor pulmonale; J96.01 Acute respiratory failure with hypoxia; J96.02 Acute respiratory failure with hypercapnia; R65.21 Severe sepsis with septic shock; N17.0 Acute kidney failure with tubular necrosis; J15.211 Pneumonia due to Methicillin susceptible Staphylococcus aureus; E46 Unspecified protein-calorie malnutrition; I33.0 Acute and subacute infective endocarditis; G92 Toxic encephalopathy; I76 Septic arterial embolism; E87.4 Mixed disorder of acid-base balance; R04.2 Hemoptysis; E86.0 Dehydration; F11.10 Opioid abuse, uncomplicated; R73.9 Hyperglycemia, unspecified; J45.909 Unspecified asthma, uncomplicated; Z51.5 Encounter for palliative care; Z66 Do not resuscitate; Z72.0 Tobacco use; Z88.1 Allergy status to other antibiotic agents
CPT/HCPCS: 31500; 36556; 70551; 71010; 71250; 74176; 76937; 80048; 80053; 80074; 80202; 80307; 81001; 82550; 82552; 82805; 83605; 83690; 83735; 84100; 84132; 84134; 84155; 84484; 84702; 84703; 85007; 85025; 85027; 85610; 85730; 86403; 86703; 87040; 87070; 87086; 87147; 87186; 87205; 87449; 87641; 87804; 93005; 93306; 93312; 93320; 93325; 94002; 94003; 94640; 94664; 96361; 96365; 96367; 96375; J0131; J0330; J0690; J1170; J1885; J1940; J2060; J2250; J2270; J2370; J2543; J3010; J3370; J3480; J7030; J7050; J7060